=== PATIENT | male | born 1950 | race Caucasian/White ===

== ENCOUNTER → 2018-07-20 | Outpatient (CLI) | payer SELFPAY | LOC: LABPRL 19:28 → LABYALE 19:28 → EDSTATUS 19:32 | PROVIDERS: ATTEND Physician Assistant Medical | DX: E87.5 Hyperkalemia (principal) | CPT/HCPCS: 84132 ==

== ENCOUNTER 2020-10-19 13:10 | Emergency (ER) | payer MEDICARE, BC, OTHER ==
[2020-10-19 13:48] VITALS: TEMP 98.2
[2020-10-19] MEDS ORDERED: SODIUM CHLORIDE 0.9% 500 ML 500 ML IV STA ×2 (14:25→15:08)
[2020-10-19] MEDS ORDERED: OXYMETAZOLINE 0.05% NASL SPRAY 1 SPRAY BOTTLE NASAL STA (14:30)
--- NOTE | 2020-10-19 14:30 | ED ---
General Adult HPI - General Source: patient, RN notes reviewed Mode of arrival: wheelchair Limitations: no limitations <cSotty Lang - Last Filed: 10/19/20 18:09> <Julee Odonnell - Last Filed: 10/20/20 13:33> - General Chief complaint: Recheck/Abnormal Lab/Rx Stated complaint: Nose Bleed Time Seen by Provider: 10/19/20 14:07 - History of Present Illness Initial comments: 70-year-old male with a past medical history of hyperlipidemia, hypertension, [place] presents to the emergency room for a chief complaint of nosebleed. Patient reports he had the packings in both sides of his nose and was admitted at [facility]. patient reports that this was yesterday and that he just had the packing late last night or this morning. reports the packing on the left side came out but he still continues to have some bleeding. Patient reports he left that facility AGAINST MEDICAL ADVICE to come to this facility to be closer to family as he lives up here. Patient states "they were doing nothing for me there anyway."Patient has no other complaints at this time including shortness of breath, chest pain, abdominal pain, nausea or vomiting, headache, or visual changes. (Scotty Lang) - Related Data Home Medications Medication Instructions Recorded Confirmed Cilostazol [Pletal] 100 mg PO BID 10/19/20 10/19/20 Clopidogrel Bisulfate [Plavix] 75 mg PO DAILY 10/19/20 10/19/20 Metoprolol Tartrate [Lopressor] 50 mg PO BID 10/19/20 10/19/20 Mometasone Furoate 1 applic PO DAILY 10/19/20 10/19/20 Multivitamins, Thera [Multivitamin 1 tab PO DAILY 10/19/20 10/19/20 (formulary)] Rosuvastatin Calcium [Crestor] 40 mg PO DAILY 10/19/20 10/19/20 Previous Rx's Medication Instructions Recorded Amoxicillin/Potassium Clav 1 tab PO Q12HR #10 tab 10/19/20 [Augmentin 875-125 Tablet] Allergies Allergy/AdvReac Type Severity Reaction Status Date / Time No Known Allergies Allergy Verified 10/19/20 18:15 Review of Systems ROS Other: All systems not noted in ROS Statement are negative. <Precious,Scotty P - Last Filed: 10/19/20 18:09> ROS Other: All systems not noted in ROS Statement are negative. <OrlandojacekJulee Katharine - Last Filed: 10/20/20 13:33> ROS Statement: Those systems with pertinent positive or pertinent negative responses have been documented in the HPI. Past Medical History Past Medical History: Hyperlipidemia, Hypertension, Myocardial Infarction ([place]) History of Any Multi-Drug Resistant Organisms: None Reported Past Surgical History: Heart Catheterization With Stent Additional Past Surgical History / Comment(s): stent placement within groin Past Psychological History: No Psychological Hx Reported Smoking Status: Current every day smoker Past Alcohol Use History: Rare Past Drug Use History: None Reported <Scotty Lang P - Last Filed: 10/19/20 18:09> General Exam Limitations: no limitations General appearance: alert, in no apparent distress Head exam: Present: atraumatic, normocephalic, normal inspection Eye exam: Present: normal appearance, PERRL, EOMI. Absent: scleral icterus, conjunctival injection, periorbital swelling ENT exam: Present: normal exam, normal oropharynx (Patient does have packing noted in the right Nare), mucous membranes moist Neck exam: Present: normal inspection, full ROM. Absent: tenderness, meningi smus, lymphadenopathy Respiratory exam: Present: normal lung sounds bilaterally. Absent: respiratory distress, wheezes, rales, rhonchi, stridor Cardiovascular Exam: Present: regular rate, normal rhythm, normal heart sounds. Absent: systolic murmur, diastolic murmur, rubs, gallop, clicks GI/Abdominal exam: Present: soft, normal bowel sounds. Absent: distended, tenderness, guarding, rebound, rigid <Scotty Lang P - Last Filed: 10/19/20 18:09> Course <Scotty Lang - Last Filed: 10/19/20 18:09> Vital Signs 10/19/20 10/19/20 10/19/20 13:42 15:58 17:11 Temperature 98.2 F Pulse Rate 118 H 115 H 108 H Respiratory 18 18 16 Rate Blood Pressure 177/112 202/125 191/98 O2 Sat by Pulse 94 L 5 L 98 Oximetry 10/19/20 17:55 Temperature Pulse Rate 109 H Respiratory 18 Rate Blood Pressure 172/95 O2 Sat by Pulse 98 Oximetry - Reevaluation(s) Reevaluation #1: 10/19/20 15:00 Apparently [facility] does not have anything dictated on the patient. Patient was apparently transferred there 3 days ago. (Scotty Lang) Medical Decision Making - Lab Data Result diagrams: 10/19/20 14:33 10/19/20 14:33 <Scotty Lang - Last Filed: 10/19/20 18:09> - Lab Data Result diagrams: 10/19/20 14:33 10/19/20 14:33 <Julee Odonnell - Last Filed: 10/20/20 13:33> - Medical Decision Making I did speak with [facility] who was able to contact me to the doctor that was caring for patient. Patient was held in their observation unit in the emergency room. Patient had a nasal packing placed late last night or early this morning bilaterally. One of the packings in the left nares did fall out. He still has packing in the right nare. He left AMA today from [facility] On exam today patient is not having any active bleeding from the left nare. He is not having any active bleeding from the packing of the right nostril however does have some mucus discharge that is tinged red slightly. I did educate him on this. There is no blood in the oropharynx. From an ENT standpoint patient is stable for discharge. Will be started on Augmentin. He was given ENT follow-up for removal of the packing in 2 days. Patient was hypertensive in the emergency room with slight tachycardia. This is sinus rhythm. EKG was reviewed by myself and Dr. Odonnell. This is likely because patient has not had his a.m. or p.m. metoprolol in 2 days because of his recent admission. He was given labetalol and hydralazine which did help with his blood pressure and heart rate slightly. He will be discharged home to continue taking his by mouth labetalol. If he develops any worsening symptoms such as chest pain or lightheadedness he will immediately return to the emergency room. (Scotty Lang) I was available for consultation in the emergency department. The history and physical exam were done by the midlevel provider. I was consulted for this patients care. I reviewed the case with the midlevel provider and based on their presentation of the patient, I agree with the assessment, medical decision making and plan of care as documented. Chart was dictated using [employer] dictation software. Attempts were made to correct any dictation errors however some typographical errors may persist. Patient was seen during a national state of emergency due to the Covid-19 pandemic. (Julee Odonnell) - Lab Data Lab Results 10/19/20 10/19/20 10/19/20 Range/Units 14:33 14:33 14:33 WBC 12.3 H (3.8-10.6) k/uL RBC 4.34 (4.30-5.90) m/uL Hgb 13.7 (13.0-17.5) gm/dL Hct 41.8 (39.0-53.0) % MCV 96.3 (80.0-100.0) fL MCH 31.5 (25.0-35.0) pg MCHC 32.7 (31.0-37.0) g/dL RDW 13.9 (11.5-15.5) % Plt Count 186 (150-450) k/uL MPV 7.5 Neutrophils % 81 % Lymphocytes % 12 % Monocytes % 4 % Eosinophils % 2 % Basophils % 1 % Neutrophils # 10.0 H (1.3-7.7) k/uL Lymphocytes # 1.5 (1.0-4.8) k/uL Monocytes # 0.5 (0-1.0) k/uL Eosinophils # 0.2 (0-0.7) k/uL Basophils # 0.1 (0-0.2) k/uL PT 9.7 (9.0-12.0) sec INR 0.9 (<1.2) APTT 23.6 (22.0-30.0) sec Sodium 139 (137-145) mmol/L Potassium 4.1 (3.5-5.1) mmol/L Chloride 105 (98-107) mmol/L Carbon Dioxide 30 (22-30) mmol/L Anion Gap 4 mmol/L BUN 59 H (9-20) mg/dL Creatinine 1.32 H (0.66-1.25) mg/dL Est GFR (CKD-EPI)AfAm 62 (>60 ml/min/1.73 sqM) Est GFR (CKD-EPI)NonAf 54 (>60 ml/min/1.73 sqM) Glucose 131 H (74-99) mg/dL Calcium 9.0 (8.4-10.2) mg/dL Total Bilirubin 0.5 (0.2-1.3) mg/dL AST 27 (17-59) U/L ALT 17 (4-49) U/L Alkaline Phosphatase 58 (38-126) U/L Total Protein 6.3 (6.3-8.2) g/dL Albumin 3.9 (3.5-5.0) g/dL Disposition Is patient prescribed a controlled substance at d/c from ED?: No Time of Disposition: 18:05 <Scotty Lang - Last Filed: 10/19/20 18:09> <Julee Odonnell - Last Filed: 10/20/20 13:33> Clinical Impression: Nasal bleeding, Hypertension Disposition: HOME SELF-CARE Condition: Good Instructions (If sedation given, give patient instructions): Nosebleed (ED) Additional Instructions: Take your metoprolol when you get home. Please take antibiotic as directed. Please follow-up with ENT. You should have packing removed on Monday, October 21. If you have any worsening symptoms return to the emergency room. Prescriptions: Amoxicillin/Potassium Clav [Augmentin 875-125 Tablet] 1 tab PO Q12HR #10 tab Referrals: [facility],Clinic [Primary Care Provider] - 1-2 days Feliciano Mora MD [STAFF PHYSICIAN] - 1-2 days
[2020-10-19 14:54] LABS: Basophils # (A) 0.1 k/uL (0-0.2); Basophils % (A) 1 %; Eosinophils # (A) 0.2 k/uL (0-0.7); Eosinophils % (A) 2 %; HCT 41.8 % (39.0-53.0); HGB 13.7 gm/dL (13.0-17.5); Lymphocytes # (A) 1.5 k/uL (1.0-4.8); Lymphocytes % (A) 12 %; MCH 31.5 pg (25.0-35.0); MCHC 32.7 g/dL (31.0-37.0); MCV 96.3 fL (80.0-100.0); Mean Platelet Volume 7.5; Monocytes # (A) 0.5 k/uL (0-1.0); Monocytes % (A) 4 %; Neutrophils % (A) 81 %; Platelet Count 186 k/uL (150-450); RBC 4.34 m/uL (4.30-5.90); RDW 13.9 % (11.5-15.5); WBC 12.3 k/uL (3.8-10.6)
[2020-10-19 15:02] LABS: Albumin 3.9 g/dL (3.5-5.0); Potassium 4.1 mmol/L (3.5-5.1); Total Bilirubin 0.5 mg/dL (0.2-1.3); Total Protein 6.3 g/dL (6.3-8.2)
[2020-10-19 15:04] LABS: INR 0.9 (<1.2); Partial Thromboplastin Time 23.6 sec (22.0-30.0); Prothrombin Time 9.7 sec (9.0-12.0)
[2020-10-19] MEDS ORDERED: LABETALOL 5 MG/ML VIAL MDV IVP STA (16:20)
[2020-10-19] MEDS ORDERED: hydrALAZINE HCL 20 MG/ML 1 ML VIAL IVP STA (17:24)
[2020-10-19 17:56] VITALS: BP 172/95; PULSE 109; RESP 18
== END 2020-10-19 18:27 | disposition home or self-care (01) ==
LOC: EC 13:10
DX: R04.0 Epistaxis (principal); I10 Essential (primary) hypertension; R00.0 Tachycardia, unspecified; I25.2 Old myocardial infarction; F17.200 Nicotine dependence, unspecified, uncomplicated; Z95.5 Presence of coronary angioplasty implant and graft
CPT/HCPCS: 36415; 93005; 80053; 85025; 85610; 85730; 99283; 96374; 96375; 96361 ×2; J0360

== ENCOUNTER → 2022-08-22 | Outpatient (CLI) | payer MEDICARE, BC ==
[2022-08-22 16:10] LABS: ALT 25 U/L (10-49); AST 31 U/L (14-35); Chol/HDL Ratio 3.05 Ratio; LDL Cholesterol,Calculated 74.3 mg/dL (0.0-131.0); VLDL Calculation 19.24 mg/dL (5.00-40.00)
== END | disposition home or self-care (01) ==
LOC: LABWHC1 10:48
PROVIDERS: ATTEND Internal Medicine Interventional Cardiology
DX: E78.2 Mixed hyperlipidemia (principal)
CPT/HCPCS: 36415; 80061; 84450; 84460

== ENCOUNTER → 2023-01-27 | Outpatient (CLI) | payer MEDICARE, BC, OTHER ==
--- NOTE | 2023-01-27 10:30 | CT ---
EXAMINATION TYPE: CT chest w con DATE OF EXAM: 01/27/2023 COMPARISON: NONE at this hospital. HISTORY: Pulmonary nodule CT DLP: 581 mGycm. Automated Exposure Control for Dose Reduction was Utilized. TECHNIQUE: CT scan of the thorax is performed following with IV Contrast, patient injected with 50 m l mL of Isovue 300. FINDINGS: LUNGS: Moderate underlying emphysematous change is present. There is spiculated 2.0 x 2.0 cm right up per lobe nodule axial image 15. There is additional peripheral 7 x 6 mm right lower lobe nodule poste riorly axial image 23. No left-sided pulmonary nodules or masses. Mild bibasilar linear scarring and/ or atelectasis. No pleural effusion or pneumothorax seen bilaterally. No left-sided pulmonary nodules or masses. MEDIASTINUM: There are no greater than 1 cm hilar or mediastinal lymph nodes. No cardiomegaly or pe ricardial effusion is seen. Coronary artery calcification is present which is noted marker for under lying coronary artery disease. Mild to moderate calcified plaque of the thoracic aorta extends into b ranch vessels OTHER: Asymmetric diminished size and diminished or absent cortical medullary uptake in the left kidn ey with 2.9 cm simple appearing thin-walled cyst lower pole level seen on coronal images. There is pa rtial visualization of suspected AAA on coronal images just below the renal arteries. If this is not known finding follow-up advised. There is multilevel spurring and bridging osteophytes in the thoraci c spine. IMPRESSION: 1. Moderate emphysematous change with suspicious 2.0 cm right upper lobe spiculated nodule. No defini tive abnormal thoracic adenopathy. Nonspecific 7 x 6 mm right lower lobe nodule also noted. 2. Probable infrarenal AAA. Imaging follow-up advised to further assess. 3. Asymmetric significant atrophy to left kidney noted. Correlate clinically.
== END | disposition home or self-care (01) ==
LOC: RADCTMAIN 08:30
PROVIDERS: ATTEND Internal Medicine Critical Care Medicine
DX: J43.9 Emphysema, unspecified (principal); N26.1 Atrophy of kidney (terminal); R91.8 Other nonspecific abnormal finding of lung field
CPT/HCPCS: 82565; 84520; 71260; 36415; Q9967

== ENCOUNTER → 2023-02-11 | Outpatient (CLI) | payer MEDICARE, BC, OTHER ==
--- NOTE | 2023-02-13 08:24 | PE ---
EXAMINATION TYPE: PET CT fusion skull to thigh DATE OF EXAM: 02/11/2023 COMPARISON: Chest CT January 27, 2023 HISTORY: Solitary pulmonary nodule, recent abnormal CT TECHNIQUE: Following the intravenous administration of 12.03 mCi of F-18 FDG, whole body images are performed from the skull base to the midthigh. Images are reviewed on the computer in the coronal, a xial, and sagittal planes. Reconstructed rotating images are created on independent workstation and reviewed on the computer. A localization and attenuation correction CT is performed in conjunction with the PET scan. Blood glucose level equals 108. SCAN: Initial Scan FINDINGS: SKULL BASE AND NECK: Mild hypermetabolic uptake anterior tongue base in the midline axial image 37, Max SUV is 5.51. No obvious mass at this level. No additional areas of abnormal hypermetabolic uptake in the thorax. CHEST, MEDIASTINUM, AND HILAR REGION: Moderate underlying emphysematous changes are redemonstrated. P ersistent spiculated 1.9 x 1.9 cm right upper lobe nodule axial image 85 with abnormal hypermetabolic uptake, max SUV is 13.21s. No additional areas of abnormal hypermetabolic uptake in the thorax. ABDOMEN AND PELVIS: No hypermetabolic adrenal masses. Normal excretion from single right kidney. No a reas of abnormal hypermetabolic uptake. OSSEOUS STRUCTURES: No areas of abnormal hypermetabolic uptake. OTHER CT: Carotid artery stent on left side is present. Severe calcification right carotid bulb is se en. Coronary artery calcifications are redemonstrated. There is AAA measuring up to 5.1 cm transversely axial image 182. There is atherosclerotic change thr oughout the aorta extending into branch vessels. Right-sided external iliac artery stent is present. Enlarged prostate consistent with BPH. Few scattered colonic diverticula greatest in sigmoid colon. IMPRESSION: 1. Abnormal hypermetabolic uptake in the 1.9 cm right upper lobe nodule worrisome for neoplasm. No malloy spicious adenopathy or metastatic disease seen. 2. Mild abnormal hypermetabolic uptake anterior tongue, advise direct physical exam to rule out mucos al mass or neoplasm at this level though favor contamination or other artifact. 3. Extensive atherosclerotic change with AAA up to 5.1 cm. Follow-up advised if this is not known jeovany ugarte
== END | disposition home or self-care (01) ==
LOC: RADPETMAIN 08:25
PROVIDERS: ATTEND Internal Medicine Critical Care Medicine
DX: I71.40 Abdominal aortic aneurysm, without rupture, unspecified (principal); R91.1 Solitary pulmonary nodule
CPT/HCPCS: 78815; A9552

== ENCOUNTER → 2023-10-03 | Outpatient (CLI) | payer OTHER ==
[2023-10-03 10:25] LABS: African American GFR (CKD) 53 (>60 ml/min/1.73 sqM); Blood Urea Nitrogen 32 mg/dL (9-20); Non-African American GFR(CKD) 45 (>60 ml/min/1.73 sqM)
--- NOTE | 2023-10-03 11:38 | CT ---
EXAMINATION TYPE: CT chest w con DATE OF EXAM: 10/03/2023 COMPARISON: 05/23/2023 HISTORY: C34.11 LUNG CA, F17.210 nicotine dependence Automated exposure control for dose reduction was used. CONTRAST: CT scan of the chest is performed with IV Contrast, patient injected with 100 mL of Isovue 300. FINDINGS: LUNGS: Spiculated nodule right upper lobe is again noted currently measuring 1 cm versus 1.3 cm previ ously. No additional nodules or masses seen. Mild emphysematous changes. No evidence of volume loss o r infiltrate. No pleural effusion. MEDIASTINUM: There are no greater than 1 cm hilar or mediastinal lymph nodes. No pericardial effusi on is seen. Thoracic aorta is of normal caliber. The heart is not enlarged. UPPER ABDOMEN: Partially imaged abdominal aortic aneurysm. OTHER: No additional significant abnormality is seen. IMPRESSION: Spiculated nodule right upper lobe is again noted currently measuring 1 cm versus 1.3 cm previously.
== END | disposition home or self-care (01) ==
LOC: RADCTMAIN 09:48
PROVIDERS: ATTEND Radiology Radiation Oncology
DX: C34.11 Malignant neoplasm of upper lobe, right bronchus or lung (principal); F17.210 Nicotine dependence, cigarettes, uncomplicated; R91.1 Solitary pulmonary nodule
CPT/HCPCS: 82565; 84520; 71260; 36415; Q9967

== ENCOUNTER 2023-11-30 06:21 | Inpatient (IN) | payer OTHER, MEDICARE, BC ==
[2023-11-30] MEDS ORDERED: IPRATROPIUM-ALBUTEROL 3 ML NEB INHALATION STA (06:33)
[2023-11-30 06:37] VITALS: TEMP 97.7
[2023-11-30 06:52] LABS: Basophils % (A) 1 %; Eosinophils % (A) 0 %; Lymphocytes # (A) 1.1 k/uL (1.0-4.8); Lymphocytes % (A) 20 %; MCH 32.4 pg (25.0-35.0); MCHC 32.8 g/dL (31.0-37.0); MCV 98.6 fL (80.0-100.0); Mean Platelet Volume 8.1; Monocytes # (A) 0.5 k/uL (0-1.0); Monocytes % (A) 9 %; Neutrophils # (A) 3.8 k/uL (1.3-7.7); Neutrophils % (A) 68 %; Platelet Count 126 k/uL (150-450); RBC 5.88 m/uL (4.30-5.90); RDW 13.2 % (11.5-15.5); WBC 5.6 k/uL (3.8-10.6)
[2023-11-30 06:54] LABS: HCT 57.9 % (39.0-53.0)
[2023-11-30 06:58] LABS: INR 1.1 (<1.2); Partial Thromboplastin Time 27.3 sec (22.0-30.0); Prothrombin Time 11.8 sec (10.0-12.5)
--- NOTE | 2023-11-30 07:03 | XR ---
EXAMINATION TYPE: XR chest 2V DATE OF EXAM: 11/30/2023 COMPARISON: Chest CT October 03, 2023 HISTORY: Difficulty in breathing. TECHNIQUE: Frontal and lateral views of the chest are obtained. FINDINGS: There is chronic parenchymal changes bilaterally redemonstrated without suspicious focal a ir space opacity, pleural effusion, or pneumothorax seen. The cardiac silhouette size is stable and within normal limits. Bridging osteophytes in the thoracic spine are redemonstrated. IMPRESSION: No acute pulmonary process.
--- NOTE | 2023-11-30 07:11 | ED ---
SOB HPI - General Source: patient, EMS Mode of arrival: EMS Limitations: no limitations <Sheri Arita - Last Filed: 11/30/23 07:11> <Edd Haines - Last Filed: 11/30/23 11:00> - General Chief Complaint: Shortness of Breath Stated Complaint: SOB Time Seen by Provider: 11/30/23 06:23 - History of Present Illness Initial Comments: Low is a 73-year-old man with a history of hypertension, hyperlipidemia, PA. Patient still smokes and is brought to the ER today for evaluation of difficulty breathing. Patient reports that he feels like he has been able to catch his breath since Monday he has had a nonproductive cough and some audible wheezing. This morning it became unbearable he could not catch his breath EMS arrived at the patient's home to find him with an oxygen saturation in the low 80s. He was given a DuoNeb and placed on 6 L nasal cannula and brought to the ER for further evaluation. Patient denies any sick contacts he denies any fevers. Patient denies any chest pain -patient states he has not inhaler he uses twice daily but no nebulizer at home. Has never required hospitalization due to any respiratory issues. (Sheri Arita) - Related Data Home Medications Medication Instructions Recorded Confirmed Metoprolol Tartrate [Lopressor] 50 mg PO BID 10/19/20 11/30/23 Aspirin EC [Ecotrin Low Dose] 81 mg PO DAILY 11/30/23 11/30/23 Lisinopril-Hctz 10-12.5 mg 1 tab PO DAILY 11/30/23 11/30/23 [Zestoretic 10-12.5] Rosuvastatin [Crestor] 20 mg PO DAILY 11/30/23 11/30/23 Tiotropium Br/Olodaterol HCl 2 puff INHALATION RT-DAILY 11/30/23 11/30/23 [Stiolto Respimat Inhal [place]] Previous Rx's Medication Instructions Recorded Oseltamivir [Tamiflu] 75 mg PO Q12HR 5 Days #10 cap 11/30/23 Allergies Allergy/AdvReac Type Severity Reaction Status Date / Time No Known Allergies Allergy Verified 11/30/23 09:49 Review of Systems ROS Other: All systems not noted in ROS Statement are negative. <Sheri Arita - Last Filed: 11/30/23 07:11> ROS Other: All systems not noted in ROS Statement are negative. <Edd Haines - Last Filed: 11/30/23 11:00> ROS Statement: Those systems with pertinent positive or pertinent negative responses have been documented in the HPI. Past Medical History Past Medical History: Hyperlipidemia, Hypertension, Myocardial Infarction (PA) History of Any Multi-Drug Resistant Organisms: None Reported Past Surgical History: Heart Catheterization With Stent Additional Past Surgical History / Comment(s): stent placement within groin Past Psychological History: No Psychological Hx Reported Smoking Status: Current every day smoker Past Alcohol Use History: Rare Past Drug Use History: None Reported <Sheri Arita P - Last Filed: 11/30/23 07:11> General Exam Limitations: no limitations General appearance: alert, in distress Head exam: Present: atraumatic Eye exam: Present: PERRL ENT exam: Present: mucous membranes dry Neck exam: Present: full ROM Respiratory exam: Present: respiratory distress, wheezes Cardiovascular Exam: Present: regular rate GI/Abdominal exam: Present: soft. Absent: distended Rectal exam: Present: deferred Extremities exam: Present: pedal edema. Absent: normal capillary refill Neurological exam: Present: alert, oriented X3 Psychiatric exam: Present: agitated Skin exam: Present: warm, dry, other (red, jackelyn) <Sheri Arita P - Last Filed: 11/30/23 07:11> Course Vital Signs 11/30/23 11/30/23 11/30/23 06:23 08:02 08:19 Temperature 97.7 F Pulse Rate 89 75 78 Respiratory 18 Rate Blood Pressure 118/77 O2 Sat by Pulse 92 L Oximetry 11/30/23 11/30/23 11/30/23 08:21 10:13 10:46 Temperature Pulse Rate 81 86 Respiratory 20 Rate Blood Pressure 111/63 100/61 75/57 O2 Sat by Pulse 93 L 89 L 84 L Oximetry Medical Decision Making - Lab Data Result diagrams: 11/30/23 06:41 <Sheri Arita - Last Filed: 11/30/23 07:11> - Lab Data Result diagrams: 11/30/23 06:41 11/30/23 06:41 <Edd Haines - Last Filed: 11/30/23 11:00> - Medical Decision Making Was pt. sent in by a medical professional or institution (MYNOR Martinez, DIRECTOR BUSINESS, urgent care, hospital, or retirement...) When possible be specific @ -[No] Did you speak to anyone other than the patient for history (EMS, parent, family, police, friend...)? What history was obtained from this source @ -EMS Did you review nursing and triage notes (agree or disagree)? Why? @ -[I reviewed and agree with nursing and triage notes] Were old charts reviewed (outside hosp., previous admission, EMS record, old EKG, old radiological studies, urgent care reports/EKG's, retirement records)? Report findings @ -[No old charts were reviewed] Differential Diagnosis (chest pain, altered mental status, abdominal pain women, abdominal pain men, vaginal bleeding, weakness, fever, dyspnea, syncope, headache, dizziness, GI bleed, back pain, seizure, CVA, palpatations, mental health)? @ -Differential Dyspnea: Coronary syndrome, arrhythmia, tamponade, asthma, COPD, pulmonary embolism, pneumonia, pneumothorax, pulmonary effusion, anaphylaxis, diabetic ketoacidosis, flailed chest, pulmonary contusion, diaphragmatic rupture, anemia, neuromuscular, this is not meant to be an all-inclusive list. EKG interpreted by me (3pts min.). @ -[As above] X-rays interpreted by me (1pt min.). @ -No focal consolidations no pneumothorax no widened mediastinum no obvious acute pathology CT interpreted by me (1pt min.). @ -[None done] U/S interpreted by me (1pt. min.). @ -[None done] What testing was considered but not performed or refused? (CT, X-rays, U/S, labs)? Why? @ -[None] What meds were considered but not given or refused? Why? @ -[None] Did you discuss the management of the patient with other professionals (professionals i.e. MYNOR Martinez, DIRECTOR BUSINESS, lab, RT, psych nurse, health social work professor, marketing consultant, teacher, sheriffs officer, director case management)? Give summary @ -[No] Was smoking cessation discussed for >3mins.? @ -[No] Was critical care preformed (if so, how long)? @ -[No] Were there social determinants of health that impacted care today? How? (Homelessness, low income, unemployed, alcoholism, drug addiction, transportation, low edu. Level, literacy, decrease access to med. care, mcc, rehab)? @ -[No] Was there de-escalation of care discussed even if they declined (Discuss DNR or withdrawal of care, Hospice)? DNR status @ -[No] What co-morbidities impacted this encounter? (DM, HTN, Smoking, COPD, CAD, Cancer, CVA, ARF, Chemo, Hep., AIDS, mental health diagnosis, sleep apnea, morbid obesity)? @ -[None] Was patient admitted / discharged? Hospital course, mention meds given and route, prescriptions, significant lab abnormalities, going to OR and other pertinent info. @ -[hospital course] Undiagnosed new problem with uncertain prognosis? @ -[No] Drug Therapy requiring intensive monitoring for toxicity (Heparin, Nitro, Insulin, Cardizem)? @ -[No] Were any procedures done? @ -[No] Diagnosis/symptom? @ -[default] Acute, or Chronic, or Acute on Chronic? @ -[default] Uncomplicated (without systemic symptoms) or Complicated (systemic symptoms)? @ -[default] Side effects of treatment? @ -[No] Exacerbation, Progression, or Severe Exacerbation? @ -[No] Poses a threat to life or bodily function? How? (Chest pain, USA, PA, pneumonia, PE, COPD, DKA, ARF, appy, cholecystitis, CVA, Diverticulitis, Homicidal, Suicidal, threat to staff... and all critical care pts) @ -[No] (Sheri Arita) Patient care signed out to me by previous shift physician, Dr. Arita. Briefly, patient 73-year-old male presents emergency department with dyspnea. Patient diagnosed with COPD exacerbation. Plan at signout was to follow-up with pending lab evaluation and imaging studies. Chest x-ray interpreted by me shows no acute processes. Laboratory evaluation shows erythrocytosis of 19.0, coags unremarkable. Metabolic panel shows lactic acidosis of 2.7. Slightly elevated renal markers. Patient influenza A positive. Patient pending blood cultures. My EKG interpretation: Ventricular rate 93, A-fib versus sinus arrhythmia. There are clearly discernible P waves in anterior precordial leads however artifact limits diagnosis of new onset A-fib. More likely sinus arrhythmia. Overall this EKG is nonspecific Patient evaluated at bedside at 9:40 AM. Patient well-appearing. Disposition options were discussed he preferred to be discharged. He is agreeable to a repeat lactic. Patient states that his breathing is significantly proved. Repeat EKG was performed at 1002 showing sinus rhythm not A-fib.. Ventricular rate 81, sinus rhythm,. 165, QRS 81, QTc 424. 10:30 AM: Patient reevaluated at bedside at 10:30 AM. Patient hypoxic on 6 L nasal cannula in the high 80s. Patient states he does not wear oxygen at home. It was recommended the patient to be admitted to the hospital h for hypoxic respiratory failure. He states he absolutely does not want to stay under any condition. Risk of m leaving AGAINST MEDICAL ADVICE was discussed with the patient. He states that he understands. He is of sound mind and judgment at the bedside. Still that he would likely have worsening respiratory condition which ultimately could lead to respiratory arrest and . States that he has to go home to pay his bills. 10:56 AM: Patient was spoken tomorrow by nurse and director case management and was agreeable for hospital admission.Case discussed with hospitalist for admission (Edd Haines) - Lab Data Lab Results 11/30/23 11/30/23 11/30/23 Range/Units 06:41 06:41 06:41 WBC 5.6 (3.8-10.6) k/uL RBC 5.88 (4.30-5.90) m/uL Hgb 19.0 H (13.0-17.5) gm/dL Hct 57.9 H* (39.0-53.0) % MCV 98.6 (80.0-100.0) fL MCH 32.4 (25.0-35.0) pg MCHC 32.8 (31.0-37.0) g/dL RDW 13.2 (11.5-15.5) % Plt Count 126 L (150-450) k/uL MPV 8.1 Neutrophils % 68 % Lymphocytes % 20 % Monocytes % 9 % Eosinophils % 0 % Basophils % 1 % Neutrophils # 3.8 (1.3-7.7) k/uL Lymphocytes # 1.1 (1.0-4.8) k/uL Monocytes # 0.5 (0-1.0) k/uL Eosinophils # 0.0 (0-0.7) k/uL Basophils # 0.0 (0-0.2) k/uL PT 11.8 (10.0-12.5) sec INR 1.1 (<1.2) APTT 27.3 (22.0-30.0) sec Sodium 135 L (137-145) mmol/L Potassium 3.8 (3.5-5.1) mmol/L Chloride 96 L (98-107) mmol/L Carbon Dioxide 28 (22-30) mmol/L Anion Gap 11 mmol/L BUN 37 H (9-20) mg/dL Creatinine 1.67 H (0.66-1.25) mg/dL Est GFR (CKD-EPI)AfAm 46 (>60 ml/min/1.73 sqM) Est GFR (CKD-EPI)NonAf 40 (>60 ml/min/1.73 sqM) Glucose 98 (74-99) mg/dL Lactic Ac Sepsis Rflx Plasma Lactic Acid Ez (0.7-2.0) mmol/L Calcium 8.4 (8.4-10.2) mg/dL Magnesium 1.7 (1.6-2.3) mg/dL Total Bilirubin 0.8 (0.2-1.3) mg/dL AST 37 (17-59) U/L ALT 22 (4-49) U/L Alkaline Phosphatase 71 (38-126) U/L Troponin I (0.000-0.034) ng/mL NT-Pro-B Natriuret Pep 1840 pg/mL Total Protein 6.5 (6.3-8.2) g/dL Albumin 3.7 (3.5-5.0) g/dL Influenza Type A (PCR) (Not Detectd) Influenza Type B (PCR) (Not Detectd) RSV (PCR) (Not Detectd) SARS-CoV-2 (PCR) (Not Detectd) 11/30/23 11/30/23 11/30/23 Range/Units 06:41 06:41 06:41 WBC (3.8-10.6) k/uL RBC (4.30-5.90) m/uL Hgb (13.0-17.5) gm/dL Hct (39.0-53.0) % MCV (80.0-100.0) fL MCH (25.0-35.0) pg MCHC (31.0-37.0) g/dL RDW (11.5-15.5) % Plt Count (150-450) k/uL MPV Neutrophils % % Lymphocytes % % Monocytes % % Eosinophils % % Basophils % % Neutrophils # (1.3-7.7) k/uL Lymphocytes # (1.0-4.8) k/uL Monocytes # (0-1.0) k/uL Eosinophils # (0-0.7) k/uL Basophils # (0-0.2) k/uL PT (10.0-12.5) sec INR (<1.2) APTT (22.0-30.0) sec Sodium (137-145) mmol/L Potassium (3.5-5.1) mmol/L Chloride (98-107) mmol/L Carbon Dioxide (22-30) mmol/L Anion Gap mmol/L BUN (9-20) mg/dL Creatinine (0.66-1.25) mg/dL Est GFR (CKD-EPI)AfAm (>60 ml/min/1.73 sqM) Est GFR (CKD-EPI)NonAf (>60 ml/min/1.73 sqM) Glucose (74-99) mg/dL Lactic Ac Sepsis Rflx Plasma Lactic Acid Ez 2.7 H* (0.7-2.0) mmol/L Calcium (8.4-10.2) mg/dL Magnesium (1.6-2.3) mg/dL Total Bilirubin (0.2-1.3) mg/dL AST (17-59) U/L ALT (4-49) U/L Alkaline Phosphatase (38-126) U/L Troponin I 0.022 (0.000-0.034) ng/mL NT-Pro-B Natriuret Pep pg/mL Total Protein (6.3-8.2) g/dL Albumin (3.5-5.0) g/dL Influenza Type A (PCR) Detected A (Not Detectd) Influenza Type B (PCR) Not Detected (Not Detectd) RSV (PCR) Not Detected (Not Detectd) SARS-CoV-2 (PCR) Not Detected (Not Detectd) 11/30/23 11/30/23 Range/Units 08:17 09:53 WBC (3.8-10.6) k/uL RBC (4.30-5.90) m/uL Hgb (13.0-17.5) gm/dL Hct (39.0-53.0) % MCV (80.0-100.0) fL MCH (25.0-35.0) pg MCHC (31.0-37.0) g/dL RDW (11.5-15.5) % Plt Count (150-450) k/uL MPV Neutrophils % % Lymphocytes % % Monocytes % % Eosinophils % % Basophils % % Neutrophils # (1.3-7.7) k/uL Lymphocytes # (1.0-4.8) k/uL Monocytes # (0-1.0) k/uL Eosinophils # (0-0.7) k/uL Basophils # (0-0.2) k/uL PT (10.0-12.5) sec INR (<1.2) APTT (22.0-30.0) sec Sodium (137-145) mmol/L Potassium (3.5-5.1) mmol/L Chloride (98-107) mmol/L Carbon Dioxide (22-30) mmol/L Anion Gap mmol/L BUN (9-20) mg/dL Creatinine (0.66-1.25) mg/dL Est GFR (CKD-EPI)AfAm (>60 ml/min/1.73 sqM) Est GFR (CKD-EPI)NonAf (>60 ml/min/1.73 sqM) Glucose (74-99) mg/dL Lactic Ac Sepsis Rflx Y Plasma Lactic Acid Ez 2.2 H* (0.7-2.0) mmol/L Calcium (8.4-10.2) mg/dL Magnesium (1.6-2.3) mg/dL Total Bilirubin (0.2-1.3) mg/dL AST (17-59) U/L ALT (4-49) U/L Alkaline Phosphatase (38-126) U/L Troponin I (0.000-0.034) ng/mL NT-Pro-B Natriuret Pep pg/mL Total Protein (6.3-8.2) g/dL Albumin (3.5-5.0) g/dL Influenza Type A (PCR) (Not Detectd) Influenza Type B (PCR) (Not Detectd) RSV (PCR) (Not Detectd) SARS-CoV-2 (PCR) (Not Detectd) Disposition <Sheri Arita P - Last Filed: 11/30/23 07:11> Is patient prescribed a controlled substance at d/c from ED?: No Decision Time: 10:56 <Edd Haines - Last Filed: 11/30/23 11:00> Clinical Impression: Hypoxic respiratory failure Disposition: ADMITTED IP TO THIS HOSP Condition: Serious Instructions (If sedation given, give patient instructions): Hypoxia (ED) Prescriptions: Oseltamivir [Tamiflu] 75 mg PO Q12HR 5 Days #10 cap Referrals: [facility],Clinic [Primary Care Provider] - 1-2 days
[2023-11-30] MEDS ORDERED: methylPREDNISolone SOD SUCCIN 125 MG in SODIUM CHLORIDE 0.9% 100 ML IVPB STA (07:15)
[2023-11-30] MEDS ORDERED: methylPREDNISolone SOD SUCCI 125 MG/2 ML VIAL IV STA (07:21)
[2023-11-30 07:26] LABS: ALT 22 U/L (4-49); AST 37 U/L (17-59); African American GFR (CKD) 46 (>60 ml/min/1.73 sqM); Albumin 3.7 g/dL (3.5-5.0); Alkaline Phosphatase 71 U/L (38-126); Anion Gap 11 mmol/L; Blood Urea Nitrogen 37 mg/dL (9-20); Calcium 8.4 mg/dL (8.4-10.2); Carbon Dioxide 28 mmol/L (22-30); Chloride 96 mmol/L (98-107); Glucose 98 mg/dL (74-99); Magnesium 1.7 mg/dL (1.6-2.3); Non-African American GFR(CKD) 40 (>60 ml/min/1.73 sqM); Potassium 3.8 mmol/L (3.5-5.1); Sodium 135 mmol/L (137-145); Total Bilirubin 0.8 mg/dL (0.2-1.3); Total Protein 6.5 g/dL (6.3-8.2)
[2023-11-30 07:34] LABS: NT-Pro-B-Type Natriuretic Pept 1840 pg/mL
[2023-11-30] MEDS ORDERED: NALOXONE 0.4 MG/ML 1 ML VIAL IV PRN (10:57)
[2023-11-30] MEDS ORDERED: SODIUM CHLORIDE 0.9% 1,000 ML IV SCH (11:00)
[2023-11-30] MEDS: NICOTINE 21MG/24HR PATCH TRANSDERM STA ×2 (11:09→14:12)
[2023-11-30] MEDS ORDERED: OSELTAMIVIR 60 MG/10 ML ORAL SYRINGE PO SCH (12:00)
[2023-11-30 15:16] VITALS: BP 91/51; PULSE 86; RESP 24
--- NOTE | 2023-11-30 15:50 | P.PN ---
Progress Note - Text Progress Note Date: 11/30/23 Patient left AMA without being seen by admitting attending. No one notified attending about patient leaving AMA.
[2023-12-01] MEDS ORDERED: ENOXAPARIN 40 MG/0.4 ML SYRINGE SQ SCH (09:00)
[2023-12-01] MEDS ORDERED: ATORVASTATIN 40 MG TAB PO SCH (09:00)
[2023-12-01] MEDS ORDERED: ASPIRIN 81 MG PO SCH (09:00)
== END 2023-11-30 13:40 | disposition left against medical advice (07) | DRG 193 ==
LOC: EC 06:21 → 4SSUR 10:58
PROVIDERS: ADMIT Family Medicine; ATTEND Family Medicine
DX: J10.1 Influenza due to other identified influenza virus with other respiratory manifestations (principal); J96.91 Respiratory failure, unspecified with hypoxia; J44.1 Chronic obstructive pulmonary disease with (acute) exacerbation; I48.91 Unspecified atrial fibrillation; E78.5 Hyperlipidemia, unspecified; I10 Essential (primary) hypertension; I25.2 Old myocardial infarction; F17.200 Nicotine dependence, unspecified, uncomplicated; Z53.29 Procedure and treatment not carried out because of patient's decision for other reasons; Z79.82 Long term (current) use of aspirin; Z79.899 Other long term (current) drug therapy
CPT/HCPCS: 36415; 71046; 80053; 83605; 83735; 83880; 84484; 85025; 85610; 85730; 87040; 87636; 93005; 94640; 96374; 99285

== ENCOUNTER 2023-12-02 04:34 | Inpatient (IN) | payer OTHER, MEDICARE, BC ==
[2023-12-02 05:27] LABS: Basophils # (A) 0.1 k/uL (0-0.2); Basophils % (A) 1 %; Eosinophils % (A) 1 %; Lymphocytes % (A) 18 %; MCH 32.5 pg (25.0-35.0); MCHC 32.9 g/dL (31.0-37.0); MCV 98.8 fL (80.0-100.0); Mean Platelet Volume 9.4; Monocytes # (A) 0.6 k/uL (0-1.0); Monocytes % (A) 11 %; Neutrophils # (A) 3.6 k/uL (1.3-7.7); Neutrophils % (A) 66 %; Platelet Count 122 k/uL (150-450); RBC 5.93 m/uL (4.30-5.90); RDW 13.4 % (11.5-15.5); WBC 5.5 k/uL (3.8-10.6)
[2023-12-02] MEDS: predniSONE 20 MG TAB PO STA (05:29)
--- NOTE | 2023-12-02 05:31 | ED ---
SOB HPI - General Chief Complaint: Shortness of Breath Stated Complaint: SOB Time Seen by Provider: 12/02/23 04:46 Source: patient, EMS Mode of arrival: EMS - History of Present Illness Initial Comments: This patient is a 73-year-old man who is here complaining of progressive jonathan rtness of breath going back probably about a week. Patient has history of COPD and also of lung cancer. Patient states that he was given radiation treatments couple of years ago but was not a candidate for other treatment. the patient had come to the hospital 2 days ago. He states that he had to leave and signed out AGAINST MEDICAL ADVICE. Patient states that when his breathing worsened his br other had him brought him back to the hospital. Patient has not noted fever or chills. He does have chronic nonproductive cough. Patient states he has tried using the inhaler he has at home but is not giving much relief. Patient denies chest pain. MD Complaint: shortness of breath Onset/Timin -: week(s) Severity scale (1-10): 0 Consistency: constant Improves With: nothing Worsens With: nothing Known History Of: COPD, other (Lung cancer) Associated Symptoms: cough Treatments Prior to Arrival: bronchodilator - Related Data Home Oxygen Therapy: No Home Medications Medication Instructions Recorded Confirmed Metoprolol Tartrate [Lopressor] 50 mg PO BID 10/19/20 12/07/23 Aspirin EC [Ecotrin Low Dose] 81 mg PO DAILY 11/30/23 12/07/23 Lisinopril-Hctz 10-12.5 mg 1 tab PO DAILY 11/30/23 12/07/23 [Zestoretic 10-12.5] Rosuvastatin [Crestor] 20 mg PO DAILY 11/30/23 12/07/23 Tiotropium Br/Olodaterol HCl 2 puff INHALATION RT-DAILY 11/30/23 12/07/23 [Stiolto Respimat Inhal [place]] Previous Rx's Medication Instructions Recorded Apixaban [Eliquis] 5 mg PO BID 30 Days #60 tab 12/06/23 Ipratropium-Albuterol Nebulize 3 ml INHALATION RT-QID 30 Days 12/06/23 [Duoneb 0.5 mg-3 mg/3 ml Soln] #120 each predniSONE See Taper PO DIRECTED 12 Days 12/06/23 #30 tab Allergies Allergy/AdvReac Type Severity Reaction Status Date / Time No Known Allergies Allergy Verified 12/02/23 11:25 Review of Systems ROS Statement: Those systems with pertinent positive or pertinent negative responses have been documented in the HPI. ROS Other: All systems not noted in ROS Statement are negative. Constitutional: Denies: fever, chills, weakness ENT: Denies: congestion Respiratory: Reports: cough, dyspnea Cardiovascular: Denies: chest pain, palpitations, edema, syncope Gastrointestinal: Denies: abdominal pain, vomiting, diarrhea Genitourinary: Denies: dysuria, hematuria Musculoskeletal: Denies: back pain Skin: Denies: rash Neurological: Denies: headache, weakness, numbness Past Medical History Past Medical History: Cancer, COPD, Hyperlipidemia, Hypertension, Myocardial Infarction ([place]) History of Any Multi-Drug Resistant Organisms: None Reported Past Surgical History: Heart Catheterization With Stent Additional Past Surgical History / Comment(s): stent placement within groin Past Psychological History: No Psychological Hx Reported Smoking Status: Current every day smoker Past Alcohol Use History: Rare Past Drug Use History: None Reported General Exam General appearance: alert, in no apparent distress Head exam: Present: atraumatic, normocephalic Eye exam: Present: normal appearance. Absent: scleral icterus, conjunctival injection ENT exam: Present: normal oropharynx Neck exam: Present: normal inspection Respiratory exam: Present: respiratory distress (Mild tachypnea), wheezes. Absent: rales, rhonchi, stridor, accessory muscle use Cardiovascular Exam: Present: tachycardia, irregular rhythm, normal heart sounds. Absent: systolic murmur, diastolic murmur, rubs, gallop GI/Abdominal exam: Present: soft. Absent: distended, tenderness, guarding, rebound, rigid Extremities exam: Present: normal inspection, normal capillary refill. Absent: pedal edema, calf tenderness Back exam: Present: normal inspection. Absent: CVA tenderness (R), CVA tenderness (L) Neurological exam: Present: alert Skin exam: Present: warm, dry, intact, normal color. Absent: rash Course Vital Signs 12/02/23 12/02/23 12/02/23 04:43 04:55 05:39 Temperature 97.7 F Pulse Rate 83 80 Respiratory 24 Rate Blood Pressure 73/62 97/73 Blood Pressure [Right Arm Sitting] O2 Sat by Pulse 91 L Oximetry 12/02/23 12/02/23 12/02/23 06:14 06:26 10:00 Temperature Pulse Rate 133 H 141 H 75 Respiratory 24 20 Rate Blood Pressure 104/90 102/76 Blood Pressure [Right Arm Sitting] O2 Sat by Pulse 92 L 94 L Oximetry 12/02/23 12/02/23 12/02/23 12:00 12:30 12:38 Temperature Pulse Rate 68 68 60 Respiratory 16 16 Rate Blood Pressure 102/50 102/60 Blood Pressure [Right Arm Sitting] O2 Sat by Pulse 94 L 93 L 93 L Oximetry 12/02/23 12/02/23 12/02/23 12:39 13:00 15:00 Temperature Pulse Rate 67 68 75 Respiratory 16 20 Rate Blood Pressure 102/60 106/60 Blood Pressure [Right Arm Sitting] O2 Sat by Pulse 93 L 92 L Oximetry 12/02/23 12/02/23 12/02/23 16:00 17:20 19:34 Temperature 97.6 F Pulse Rate 69 73 Respiratory 16 16 19 Rate Blood Pressure 110/68 99/52 Blood Pressure 96/71 [Right Arm Sitting] O2 Sat by Pulse 92 L 94 L 91 L Oximetry 12/02/23 12/02/23 12/02/23 19:47 19:57 19:58 Temperature Pulse Rate 65 67 67 Respiratory Rate Blood Pressure Blood Pressure [Right Arm Sitting] O2 Sat by Pulse Oximetry Medical Decision Making - Medical Decision Making Patient 73-year-old man here with dyspnea that appears to be multifactorial. Main component appears to be COPD exacerbation. Patient started on inhaled medication and steroid. Patient also found to be in atrial fibrillation with rapid ventricular rate. He does not currently take anticoagulation and it appears this is a new diagnosis. Finally patient does have elevated D-dimer and will be cleared for PE. The patient had chest x-ray that I interpreted as negative for acute infiltrate, pneumothorax, congestive heart failure The patient had CT of the chest which I interpreted as not showing acute pulmonary embolism Was pt. sent in by a medical professional or institution ([facility], [facility], urgent care, hospital, or residential...) When possible be specific @ -[No] Did you speak to anyone other than the patient for history (EMS, parent, family, police, friend...)? What history was obtained from this source @ -[No] Did you review nursing and triage notes (agree or disagree)? Why? @ -[I reviewed and agree with nursing and triage notes] Were old charts reviewed (outside hosp., previous admission, EMS record, old EKG, old radiological studies, urgent care reports/EKG's, residential records)? Report findings @ -[ Differential Diagnosis (chest pain, altered mental status, abdominal pain women, abdominal pain men, vaginal bleeding, weakness, fever, dyspnea, syncope, headache, dizziness, GI bleed, back pain, seizure, CVA, palpatations, mental health, musculoskeletal)? @ -[Differential Dyspnea: Coronary syndrome, arrhythmia, tamponade, asthma, COPD, pulmonary embolism, pneumonia, pneumothorax, pulmonary effusion, anaphylaxis, diabetic ketoacidosis, flailed chest, pulmonary contusion, diaphragmatic rupture, anemia, neuromuscular, this is not meant to be an all-inclusive list. EKG interpreted by me (3pts min.). @ -[I interpreted as above] X-rays interpreted by me (1pt min.). @ -I interpreted as above CT interpreted by me (1pt min.). @ -[I interpreted as above U/S interpreted by me (1pt. min.). @ -[None done] What testing was considered but not performed or refused? (CT, X-rays, U/S, labs)? Why? @ -[None] What meds were considered but not given or refused? Why? @ -[None] Did you discuss the management of the patient with other professionals (professionals i.e. , PA, [facility], lab, RT, psych nurse, social human services assistants, shaper machine hand, teacher, energy control officer, casework specialist)? Give summary @ -[Case discussed with admitting physician and treatment recommendations incorporated Was smoking cessation discussed for >3mins.? @ -[No] Was critical care preformed (if so, how long)? @ -[No] Were there social determinants of health that impacted care today? How? (Homelessness, low income, unemployed, alcoholism, drug addiction, transportation, low edu. Level, literacy, decrease access to med. care, custodial, rehab)? @ -[No] Was there de-escalation of care discussed even if they declined (Discuss DNR or withdrawal of care, Hospice)? DNR status @ -[No] What co-morbidities impacted this encounter? (DM, HTN, Smoking, COPD, CAD, Cancer, CVA, ARF, Chemo, Hep., AIDS, mental health diagnosis, sleep apnea, morbid obesity)? @ -[COPD Was patient admitted / discharged? Hospital course, mention meds given and route, prescriptions, significant lab abnormalities, going to OR and other pertinent info. @ -[See above Undiagnosed new problem with uncertain prognosis? @ -[No] Drug Therapy requiring intensive monitoring for toxicity (Heparin, Nitro, Insulin, Cardizem)? @ -[No] Were any procedures done? @ -[No] Diagnosis/symptom? @ -Acute dyspnea Acute exacerbation of COPD Acute, or Chronic, or Acute on Chronic? @ -[Acute Uncomplicated (without systemic symptoms) or Complicated (systemic symptoms)? @ -[Uncomplicated Side effects of treatment? @ -[No] Exacerbation, Progression, or Severe Exacerbation? @ -[Exacerbation Poses a threat to life or bodily function? How? (Chest pain, USA, NH, pneumonia, PE, COPD, DKA, ARF, appy, cholecystitis, CVA, Diverticulitis, Homicidal, Suicidal, threat to staff... and all critical care pts) @ -[No] - Lab Data Result diagrams: 12/06/23 09:19 12/06/23 09:19 Lab Results 12/02/23 12/02/23 12/02/23 Range/Units 05:16 05:16 05:16 WBC 5.5 (3.8-10.6) k/uL RBC 5.93 H (4.30-5.90) m/uL Hgb 19.2 H* (13.0-17.5) gm/dL Hct 58.5 H* (39.0-53.0) % MCV 98.8 (80.0-100.0) fL MCH 32.5 (25.0-35.0) pg MCHC 32.9 (31.0-37.0) g/dL RDW 13.4 (11.5-15.5) % Plt Count 122 L (150-450) k/uL MPV 9.4 Neutrophils % 66 % Lymphocytes % 18 % Monocytes % 11 % Eosinophils % 1 % Basophils % 1 % Neutrophils # 3.6 (1.3-7.7) k/uL Lymphocytes # 1.0 (1.0-4.8) k/uL Monocytes # 0.6 (0-1.0) k/uL Eosinophils # 0.0 (0-0.7) k/uL Basophils # 0.1 (0-0.2) k/uL PT 10.5 (10.0-12.5) sec INR 0.9 (<1.2) APTT 21.7 L (22.0-30.0) sec D-Dimer 3.77 H (<0.60) mg/L FEU Sodium (137-145) mmol/L Potassium (3.5-5.1) mmol/L Chloride (98-107) mmol/L Carbon Dioxide (22-30) mmol/L Anion Gap mmol/L BUN (9-20) mg/dL Creatinine (0.66-1.25) mg/dL Est GFR (CKD-EPI)AfAm (>60 ml/min/1.73 sqM) Est GFR (CKD-EPI)NonAf (>60 ml/min/1.73 sqM) Glucose (74-99) mg/dL Plasma Lactic Acid Ez 1.7 (0.7-2.0) mmol/L Calcium (8.4-10.2) mg/dL Total Bilirubin (0.2-1.3) mg/dL AST (17-59) U/L ALT (4-49) U/L Alkaline Phosphatase (38-126) U/L Troponin I (0.000-0.034) ng/mL NT-Pro-B Natriuret Pep pg/mL Total Protein (6.3-8.2) g/dL Albumin (3.5-5.0) g/dL 12/02/23 12/02/23 Range/Units 07:45 07:45 WBC (3.8-10.6) k/uL RBC (4.30-5.90) m/uL Hgb (13.0-17.5) gm/dL Hct (39.0-53.0) % MCV (80.0-100.0) fL MCH (25.0-35.0) pg MCHC (31.0-37.0) g/dL RDW (11.5-15.5) % Plt Count (150-450) k/uL MPV Neutrophils % % Lymphocytes % % Monocytes % % Eosinophils % % Basophils % % Neutrophils # (1.3-7.7) k/uL Lymphocytes # (1.0-4.8) k/uL Monocytes # (0-1.0) k/uL Eosinophils # (0-0.7) k/uL Basophils # (0-0.2) k/uL PT (10.0-12.5) sec INR (<1.2) APTT (22.0-30.0) sec D-Dimer (<0.60) mg/L FEU Sodium 132 L (137-145) mmol/L Potassium 4.7 (3.5-5.1) mmol/L Chloride 99 (98-107) mmol/L Carbon Dioxide 26 (22-30) mmol/L Anion Gap 7 mmol/L BUN 68 H (9-20) mg/dL Creatinine 1.71 H (0.66-1.25) mg/dL Est GFR (CKD-EPI)AfAm 44 (>60 ml/min/1.73 sqM) Est GFR (CKD-EPI)NonAf 38 (>60 ml/min/1.73 sqM) Glucose 106 H (74-99) mg/dL Plasma Lactic Acid Ez (0.7-2.0) mmol/L Calcium 8.0 L (8.4-10.2) mg/dL Total Bilirubin 0.9 (0.2-1.3) mg/dL AST 51 (17-59) U/L ALT 25 (4-49) U/L Alkaline Phosphatase 58 (38-126) U/L Troponin I 0.165 H* (0.000-0.034) ng/mL NT-Pro-B Natriuret Pep 2390 pg/mL Total Protein 6.1 L (6.3-8.2) g/dL Albumin 3.3 L (3.5-5.0) g/dL - EKG Data -: EKG Interpreted by Ar EKG shows normal: QRS complexes (Left anterior fascicular block. 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
[2023-12-02] MEDS: IPRATROPIUM-ALBUTEROL 3 ML NEB INHALATION STA (05:39)
[2023-12-02] MEDS: ALBUTEROL NEBULIZED 2.5 MG/3 ML INHALATION STA (05:39)
[2023-12-02 05:42] LABS: HCT 58.5 % (39.0-53.0); HGB 19.2 gm/dL (13.0-17.5)
--- NOTE | 2023-12-02 05:49 | XR ---
EXAMINATION TYPE: XR chest 2V DATE OF EXAM: 12/02/2023 COMPARISON: Chest x-ray from 2 days earlier HISTORY: Difficulty breathing. TECHNIQUE: Frontal and lateral views of the chest are obtained. FINDINGS: There is some chronic parenchymal changes bilaterally without suspicious focal air space o pacity, pleural effusion, or pneumothorax seen. The cardiac silhouette size remain within normal morgan its. The osseous structures are intact. IMPRESSION: No acute cardiopulmonary process. No significant change from most recent prior.
[2023-12-02 06:04] LABS: INR 0.9 (<1.2); Partial Thromboplastin Time 21.7 sec (22.0-30.0); Prothrombin Time 10.5 sec (10.0-12.5)
[2023-12-02] MEDS: DILTIAZEM DRIP BOLUS FROM BAG 1 MG SOLN IV ONE (06:51)
[2023-12-02] MEDS: DILTIAZEM 125 MG in SODIUM CHLORIDE 0.9% 100 ML IV SCH (06:52)
[2023-12-02] MEDS: ENOXAPARIN 60 MG/0.6 ML SYRINGE SQ ONE (06:53)
[2023-12-02 08:03] LABS: ALT 25 U/L (4-49); AST 51 U/L (17-59); African American GFR (CKD) 44 (>60 ml/min/1.73 sqM); Albumin 3.3 g/dL (3.5-5.0); Alkaline Phosphatase 58 U/L (38-126); Anion Gap 7 mmol/L; Blood Urea Nitrogen 68 mg/dL (9-20); Carbon Dioxide 26 mmol/L (22-30); Chloride 99 mmol/L (98-107); Glucose 106 mg/dL (74-99); Non-African American GFR(CKD) 38 (>60 ml/min/1.73 sqM); Sodium 132 mmol/L (137-145); Total Bilirubin 0.9 mg/dL (0.2-1.3); Total Protein 6.1 g/dL (6.3-8.2)
[2023-12-02 08:06] LABS: Potassium 4.7 mmol/L (3.5-5.1)
[2023-12-02 08:11] LABS: NT-Pro-B-Type Natriuretic Pept 2390 pg/mL
[2023-12-02] MEDS ORDERED: NALOXONE 0.4 MG/ML 1 ML VIAL IVP PRN (08:18)
[2023-12-02] MEDS ORDERED: IPRATROPIUM-ALBUTEROL 3 ML NEB INHALATION PRN (08:18)
[2023-12-02] MEDS: predniSONE 20 MG TAB PO SCH (09:34)
[2023-12-02] MEDS: LISINOPRIL-HCTZ 10-12.5 MG 1 EACH TAB PO SCH (09:35)
[2023-12-02] MEDS: ATORVASTATIN 40 MG TAB PO SCH (09:35)
[2023-12-02] MEDS: METOPROLOL TARTRATE 50 MG TAB PO SCH (09:35)
[2023-12-02] MEDS: ASPIRIN 81 MG PO SCH (09:36)
[2023-12-02] MEDS: OSELTAMIVIR 75 MG CAP PO SCH (10:31)
--- NOTE | 2023-12-02 11:34 | P.HPIM ---
History of Present Illness H&P Date: 12/02/23 73 year old M with PMH of HTN, HLD, CAD, CKD, lung CA, COPD, current smoker presents to the ED. Initially seen in the ED on 11/30 for respiratory distress, O2 saturation in the 80s requiring 6L NC. Initial evaluation at that time revealed lactic acidosis of 2.2, DEDRA with Cr 1.67 and Flu positive. Plans for admission at that time but patient left AMA. Presents back to the ED today with similar complaints. SOB ongoing for the past 2 weeks. Reports cough productive of yellow sputum. Follows Dr. Monteiro as his pulmonary doctor. Follows Dr. Jordan as his radiation oncologist. Continues to smoke 1.5 packs of cigarettes daily. In the ED, he underwent extensive evaluation. Tachycardic with HR in the 140s. BP 73/62, 91% on 1L NC. Desaturates to the 70s while talking. CBC WBC 5.93, Hg 19.2, Hct 58.5, Plt 122. APTT 21.7. D-Dimer 3.77. BMP Na 132, BUN 68, Cr 1.71, glu 106, Ca 8, alb 3.3. Lactic acid 1.7. Troponin 0.165. BNP 2390. CXR no acute process. EKG A-Fib with RVR with ST-T wave changes. Patient is admitted for acute hypoxic respiratory failure and A-Fib RVR. General: Non toxic, no distress, appears at stated age Derm: Warm, dry Head: Atraumatic, normocephalic, symmetric Eyes: EOMI, no lid lag, anicteric sclera Mouth: No lip lesion, mucus membranes moist Cardiovascular: S1S2 reg, no murmur Lungs: Expiratory wheezing bilateral, no rhonchi, no rales, no accessory muscle use Ext: No gross muscle atrophy, no edema, no contractures Neuro: no focal neuro deficits Psych: Alert, oriented, appropriate affect Patient has an acute diagnosis of AHRF due to COPD exacerbation with Flu + and A-Fib with RVR that poses a threat to life or bodily function. Acute hypoxic respiratory failure COPD exacerbation: DuoNeb QID scheduled and PRN for SOB/wheezing. Start SoluMedrol 60 mg IV Q6H. Perforomist INH BID. Pulmonary consult. Influenza: Tamiflu 75 mg PO BID. Atrial fibrillation with RVR: Cardizem drip at 5 mg/hr. Start Eliquis 5 mg PO BID for AC. Obtain Echo. Obtain TSH. Cardiology consult. Troponin elevation: Trend Trop/EKG to rule out ACS. Likely demand ischemia. Elevated D-Dimer: CTA chest pending. Erythrocytosis: Dehydration versus smoker. Start NS at 75 cc/hr. Smoker: Encouraged to quit. Offered nicotine patch. Chronic conditions: HTN, HLD, CAD, CKD, lung CA CODE STATUS: FULL CODE DVT Prophylaxis: Eliquis GI Prophylaxis: Designated medical POA if patient is not able to make medical decisions for themselves: I have reviewed the following organizational effectiveness consultant notes: I have reviewed the results of the following tests: As above. I have ordered the following tests: As above. I have discussed the care of this patient with the following independent historian: I have independently interpreted the following test below: I have discussed the management of this patient with the following physician: Past Medical History Past Medical History: Cancer, COPD, Hyperlipidemia, Hypertension, Myocardial Infarction ([place]) History of Any Multi-Drug Resistant Organisms: None Reported Past Surgical History: Heart Catheterization With Stent Additional Past Surgical History / Comment(s): stent placement within groin Past Psychological History: No Psychological Hx Reported Smoking Status: Current every day smoker Past Alcohol Use History: Rare Past Drug Use History: None Reported Medications and Allergies Home Medications Medication Instructions Recorded Confirmed Type Metoprolol Tartrate [Lopressor] 50 mg PO BID 10/19/20 12/02/23 History Aspirin EC [Ecotrin Low Dose] 81 mg PO DAILY 11/30/23 12/02/23 History Lisinopril-Hctz 10-12.5 mg 1 tab PO DAILY 11/30/23 12/02/23 History [Zestoretic 10-12.5] Oseltamivir [Tamiflu] 75 mg PO Q12HR 5 Days #10 cap 11/30/23 12/02/23 Rx Rosuvastatin [Crestor] 20 mg PO DAILY 11/30/23 12/02/23 History Tiotropium Br/Olodaterol HCl 2 puff INHALATION RT-DAILY 11/30/23 12/02/23 History [Stiolto Respimat Inhal [place]] Allergies Allergy/AdvReac Type Severity Reaction Status Date / Time No Known Allergies Allergy Verified 12/02/23 11:25 Physical Exam Vitals: Vital Signs Temp Pulse Resp BP Pulse Ox 12/02/23 06:26 141 H 24 104/90 92 L 12/02/23 06:14 133 H 12/02/23 05:39 80 12/02/23 04:55 97/73 12/02/23 04:43 97.7 F 83 24 73/62 91 L Intake and Output 12/01/23 12/02/23 12/02/23 22:59 06:59 14:59 Other: Weight 65.771 kg Results CBC & Chem 7: 12/02/23 05:16 12/02/23 07:45 Labs: Abnormal Lab Results - Last 24 Hours (Table) 12/02/23 12/02/23 12/02/23 Range/Units 05:16 05:16 07:45 RBC 5.93 H (4.30-5.90) m/uL Hgb 19.2 H* (13.0-17.5) gm/dL Hct 58.5 H* (39.0-53.0) % Plt Count 122 L (150-450) k/uL APTT 21.7 L (22.0-30.0) sec D-Dimer 3.77 H (<0.60) mg/L FEU Sodium 132 L (137-145) mmol/L BUN 68 H (9-20) mg/dL Creatinine 1.71 H (0.66-1.25) mg/dL Glucose 106 H (74-99) mg/dL Calcium 8.0 L (8.4-10.2) mg/dL Troponin I (0.000-0.034) ng/mL Total Protein 6.1 L (6.3-8.2) g/dL Albumin 3.3 L (3.5-5.0) g/dL 12/02/23 Range/Units 07:45 RBC (4.30-5.90) m/uL Hgb (13.0-17.5) gm/dL Hct (39.0-53.0) % Plt Count (150-450) k/uL APTT (22.0-30.0) sec D-Dimer (<0.60) mg/L FEU Sodium (137-145) mmol/L BUN (9-20) mg/dL Creatinine (0.66-1.25) mg/dL Glucose (74-99) mg/dL Calcium (8.4-10.2) mg/dL Troponin I 0.165 H* (0.000-0.034) ng/mL Total Protein (6.3-8.2) g/dL Albumin (3.5-5.0) g/dL
[2023-12-02] MEDS ORDERED: IPRATROPIUM 0.5 MG/2.5 ML NEBU INHALATION SCH (12:00)
[2023-12-02] MEDS: IPRATROPIUM-ALBUTEROL 3 ML NEB INHALATION SCH (12:30)
[2023-12-02] MEDS: methylPREDNISolone SOD SUCCI 125 MG/2 ML VIAL IV SCH (12:31)
[2023-12-02] MEDS: APIXABAN 5 MG TAB PO SCH (12:31)
--- NOTE | 2023-12-02 14:20 | CA ---
Transthoracic Echo Report Name: Low Coles Age: 73 Gender: M : 1950 Exam Date: 12/02/2023 11:02 Exam Location: [facility] Ht (in): 67 Wt (lb): 145 Ordering Physician: Jamie Mazariegos MD Attending/Referring Phys: [employer] Administrator Jayda Bauer RDCS Procedure CPT: Indications: afib Cardiac Hx: Technical Quality: Technically difficult study Contrast 1: Definity Total Dose (mL): 2 Contrast 2: Total Dose (mL): MEASUREMENTS (Male / Female) Normal Values 2D ECHO LV Diastolic Diameter PLAX 3.7 cm 4.2 - 5.9 / 3.9 - 5.3 cm LV Systolic Diameter PLAX 2.1 cm IVS Diastolic Thickness 1.4 cm 0.6 - 1.0 / 0.6 - 0.9 cm LVPW Diastolic Thickness 1.3 cm 0.6 - 1.0 / 0.6 - 0.9 cm LV Relative Wall Thickness 0.7 LA Volume 23.2 cm??? 18 - 58 / 22 - 52 cm??? LA Volume Index 13.1 cm???/m??? 16 - 28 cm???/m??? M-MODE Aortic Root Diameter MM 3.7 cm LA Systolic Diameter MM 4.2 cm LA Ao Ratio MM 1.2 AV Cusp Separation MM 2.0 cm DOPPLER AV Peak Velocity 98.1 cm/s AV Peak Gradient 3.9 mmHg AV Mean Velocity 75.3 cm/s AV Mean Gradient 2.4 mmHg AV Velocity Time Integral 20.1 cm LVOT Peak Velocity 83.6 cm/s LVOT Peak Gradient 2.8 mmHg LVOT Velocity Time Integral 17.0 cm MV Area PHT 2.7 cm??? Mitral E Point Velocity 69.3 cm/s Mitral A Point Velocity 82.0 cm/s Mitral E to A Ratio 0.8 MV Deceleration Time 276.0 ms MV E' Velocity 4.2 cm/s Mitral E to MV E' Ratio 16.6 FINDINGS Left Ventricle Moderately increased left ventricular wall thickness. Left ventricular cavity size normal. Apical septum hypokinesis.left ventricular ejection fraction is estimated at 45-50 %. Right Ventricle Right ventricle not well visualized. Right Atrium Right atrium not well visualized Left Atrium Normal left atrial size. Mitral Valve Mitral valve not well visualized. No mitral stenosis. Mild mitral regurgitation. Aortic Valve No aortic valve stenosis or regurgitation. Tricuspid Valve Tricuspid valve not well visualized. Trace tricuspid regurgitation. Pulmonic Valve Pulmonic valve not well visualized. Pericardium No pericardial effusion. Aorta Normal size aortic root and proximal ascending aorta. CONCLUSIONS Moderate increased left ventricular wall thickness Left ventricular ejection fraction 45-50% with apical hypokinesis Mild mitral regurgitation Trace tricuspid regurgitation Previewed by: Dr. Sy Rayo DO (Electronically Signed) Final Date: 02 December 2023 14:19
[2023-12-02] MEDS: FORMOTEROL FUMARATE 20 MCG/2 ML NEBU INHALATION SCH (19:47)
[2023-12-02] MEDS: OSELTAMIVIR 60 MG/10 ML ORAL SYRINGE PO SCH (21:16)
--- NOTE | 2023-12-03 11:11 | P.PN ---
Subjective Progress Note Date: 12/03/23 73 year old M with PMH of HTN, HLD, CAD, CKD, lung CA, COPD, current smoker presents to the ED. Initially seen in the ED on 11/30 for respiratory distress, O2 saturation in the 80s requiring 6L NC. Initial evaluation at that time revealed lactic acidosis of 2.2, DEDRA with Cr 1.67 and Flu positive. Plans for admission at that time but patient left AMA. Presents back to the ED today with similar complaints. SOB ongoing for the past 2 weeks. Reports cough productive of yellow sputum. Follows Dr. Monteiro as his pulmonary doctor. Follows Dr. Jordan as his radiation oncologist. Continues to smoke 1.5 packs of cigarettes daily. In the ED, he underwent extensive evaluation. Tachycardic with HR in the 140s. BP 73/62, 91% on 1L NC. Desaturates to the 70s while talking. CBC WBC 5.93, Hg 19.2, Hct 58.5, Plt 122. APTT 21.7. D-Dimer 3.77. BMP Na 132, BUN 68, Cr 1.71, glu 106, Ca 8, alb 3.3. Lactic acid 1.7. Troponin 0.165. BNP 2390. CXR no acute process. EKG A-Fib with RVR with ST-T wave changes. Patient is admitted for acute hypoxic respiratory failure and A-Fib RVR. 12/03 Patient was seen and examined. Reports improvement in his breathing. No other complaints. Saturating low 90s on 2L NC. Troponin 0.15, 0.204. Echocardiogram shows EF 45-50% with apical hypokinesis, moderate LV thickness, trace TR, mild MR. Cardiology and Pulmonology on board. CBC, BMP, TSH, CTA chest pending at the time of this note. General: Non toxic, no distress, appears at stated age Derm: Warm, dry Head: Atraumatic, normocephalic, symmetric Eyes: EOMI, no lid lag, anicteric sclera Mouth: No lip lesion, mucus membranes moist Cardiovascular: S1S2 reg, no murmur Lungs: Expiratory wheezing bilateral, no rhonchi, no rales, no accessory muscle use Ext: No gross muscle atrophy, no edema, no contractures Neuro: no focal neuro deficits Psych: Alert, oriented, appropriate affect Patient has an acute diagnosis of AHRF due to COPD exacerbation with Flu + and A-Fib with RVR that poses a threat to life or bodily function. Acute hypoxic respiratory failure COPD exacerbation: DuoNeb QID scheduled and PRN for SOB/wheezing. SoluMedrol 60 mg IV Q6H. Perforomist INH BID. Pulmonary consult. Influenza: Tamiflu 75 mg PO BID. Atrial fibrillation with RVR: Metoprolol 50 mg PO BID. Eliquis 5 mg PO BID for AC. Echo as above. Obtain TSH. Cardiology consult. Troponin elevation: Likely demand ischemia. ASA 81 mg PO QD. Lipitor 40mg PO QD. Echo shows apical hypokinesis. Metoprolol as above. Cardiology consult. Elevated D-Dimer: CTA chest pending. Erythrocytosis: Dehydration versus smoker. NS at 75 cc/hr. Smoker: Encouraged to quit. Offered nicotine patch. Chronic conditions: HTN, HLD, CAD, CKD, lung CA CODE STATUS: FULL CODE DVT Prophylaxis: Eliquis GI Prophylaxis: Designated medical POA if patient is not able to make medical decisions for themselves: I have reviewed the following portrait consultant notes: I have reviewed the results of the following tests: Troponin x 2. Echocardiogram. I have ordered the following tests: Pending: CBC, BMP, TSH, CTA chest I have discussed the care of this patient with the following independent historian: I have independently interpreted the following test below: I have discussed the management of this patient with the following physician: Objective - Vital Signs Vital signs: Vital Signs Temp 97.6 F 12/03/23 08:00 Pulse 67 12/03/23 08:37 Resp 18 12/03/23 08:00 BP 129/76 12/03/23 08:00 Pulse Ox 91 L 12/03/23 08:00 FiO2 Intake & Output 12/02/23 12/03/23 12/03/23 18:59 06:59 18:59 Intake Total 120 30 10 Balance 120 30 10 Weight 65.771 kg Intake: IV 30 10 Invasive Line 1 20 Invasive Line 2 10 10 Oral 120 Other: Voiding Method Toilet Toilet # Voids 1 1 - Labs CBC & Chem 7: 12/02/23 05:16 12/02/23 07:45 Labs: Abnormal Lab Results - Last 24 Hours (Table) 12/02/23 12/02/23 Range/Units 10:38 12:38 Troponin I 0.150 H* 0.204 H* (0.000-0.034) ng/mL
[2023-12-03 11:14] LABS: African American GFR (CKD) 51 (>60 ml/min/1.73 sqM); Anion Gap 8 mmol/L; Blood Urea Nitrogen 57 mg/dL (9-20); Calcium 8.4 mg/dL (8.4-10.2); Carbon Dioxide 28 mmol/L (22-30); Chloride 100 mmol/L (98-107); Glucose 128 mg/dL (74-99); Non-African American GFR(CKD) 44 (>60 ml/min/1.73 sqM); Sodium 136 mmol/L (137-145)
[2023-12-03 11:15] LABS: HGB 17.9 gm/dL (13.0-17.5); Hypochromasia Slight; MCV 100.2 fL (80.0-100.0); Mean Platelet Volume 8.3; Platelet Count 157 k/uL (150-450); RBC 5.59 m/uL (4.30-5.90); WBC 9.8 k/uL (3.8-10.6)
[2023-12-03 11:30] LABS: HCT 55.9 % (39.0-53.0)
--- NOTE | 2023-12-03 11:49 | P.CRDCN ---
History of Present Illness Consult date: 12/03/23 Consult reason: atrial fibrillation (New onset) History of present illness: History of present illness: This is a 73-year-old male patient of Dr. Guzman with past medical history of coronary artery disease status post bypass surgery, hypertension, dyslipidemia, carotid stenosis status post carotid endarterectomy, lung cancer. We have been asked to evaluate the patient for A-fib with RVR. Patient initially presented to the hospital on 11/30 for difficulty breathing with pulse ox in the low 80s, nonproductive cough and audible wheezing. Patient was prepared for admission to the hospital but signed out AMA. Patient has been started on Eliquis 5 mg twice daily and continued on his home medication of Lopressor 50 mg twice daily. Patient denies chest pain. EKG atrial fibrillation with ventricular rate of 113 bpm Chest x-ray: No acute cardiopulmonary process. CTA of the chest: Echocardiogram performed 12/02/2023 reveals EF of 45 to 50% with apical hypokinesis, moderate increase left ventricular wall thickness. Mild mitral regurgitation, trace tricuspid regurgitation. WBC 5.5, hemoglobin 19.2, platelet count 122. Sodium 132, potassium 4.7, BUN 68 creatinine 1.71. Troponin 0.165, 0.15, 0.204. proBNP 2390. D-dimer 3.77. Lactic acid 1.7. Home cardiac medications: Aspirin 81 mg daily, lisinopril/hydrochlorothiazide 10/12.5 mg 1 daily, Lopressor 50 mg twice daily, Crestor 20 mg daily Lexiscan stress test performed in the office on 09/20/2021 was inconclusive EKG due to baseline abnormalities. Abnormal nuclear scan showing evidence of prior apical myocardial infarction with preserved LV function without any ischemia. Echocardiogram performed on 10/19/2022 in the office revealed EF of 55%. Review Of Systems: At the time of my exam: CONSTITUTIONAL: Denies fever or chills. HEENT: Denies blurred vision, vision changes, or eye pain. Denies hemoptysis CARDIOVASCULAR: Denies chest pain. Denies orthopnea. Denies PND. Denies palpitations RESPIRATORY: Denies shortness of breath. GASTROINTESTINAL: Denies abdominal pain. Denies nausea or vomiting. HEMATOLOGIC: Denies bleeding disorders. GENITOURINARY: Denies any blood in urine. SKIN: Denies pruitis. Denies rash. Physical examination: Gen: This is a 73-year-old male in no acute distress VS: reviewed HEENT: Head is atraumatic, normocephalic. Pupils equal, round. Sclerae is anicteric. NECK: Supple. No JVD. LUNGS: Clear to auscultation. No wheezes or rhonchi. No intercostal retractions. HEART: Regular rate and rhythm. No murmur. ABDOMEN: Soft No tenderness. EXTREMITIES: No pedal edema. No calf tenderness. NEUROLOGICAL: Patient is awake, alert and oriented x3. Assessment: Acute hypoxic respiratory failure secondary to COPD exacerbation and influenza New onset paroxysmal atrial fibrillation with RVR, currently SR Elevated troponins most likely type 2 [place] due to hypoxia, influenza, AECOPD, atrial fibrillation Acute kidney injury and chronic kidney disease Thrombocytopenia Mild drop in EF to 45-50% from previous 55% Struve coronary artery disease with CABG Hypertension Dyslipidemia Carotid stenosis status post carotid endarterectomy History of lung cancer History of CVA Plan: Continue patient on Eliquis 5 mg twice daily and Lopressor 50 mg twice daily TSH is pending Patient's nurse will call on CTA results Further recommendations to follow based upon clinical course At time of discharge, patient will follow up with Dr. Guzman in 1-2 weeks for ad ditional workup. Thank you kindly for this consultation. Nurse practitioner note has been reviewed, I agree with documented findings and plan of care. Patient was seen and examined. Past Medical History Past Medical History: Cancer, COPD, Hyperlipidemia, Hypertension, Myocardial Infarction ([place]) Last Myocardial Infarction Date:: Unknown History of Any Multi-Drug Resistant Organisms: None Reported Past Surgical History: Heart Catheterization With Stent Additional Past Surgical History / Comment(s): stent placement within groin Past Anesthesia/Blood Transfusion Reactions: No Reported Reaction Date of Last Stent Placement:: Unknown Past Psychological History: No Psychological Hx Reported Smoking Status: Current every day smoker Past Alcohol Use History: Rare Past Drug Use History: None Reported Medications and Allergies Home Medications Medication Instructions Recorded Confirmed Type Metoprolol Tartrate [Lopressor] 50 mg PO BID 10/19/20 12/02/23 History Aspirin EC [Ecotrin Low Dose] 81 mg PO DAILY 11/30/23 12/02/23 History Lisinopril-Hctz 10-12.5 mg 1 tab PO DAILY 11/30/23 12/02/23 History [Zestoretic 10-12.5] Oseltamivir [Tamiflu] 75 mg PO Q12HR 5 Days #10 cap 11/30/23 12/02/23 Rx Rosuvastatin [Crestor] 20 mg PO DAILY 11/30/23 12/02/23 History Tiotropium Br/Olodaterol HCl 2 puff INHALATION RT-DAILY 11/30/23 12/02/23 History [Stiolto Respimat Inhal [place]] Allergies Allergy/AdvReac Type Severity Reaction Status Date / Time No Known Allergies Allergy Verified 12/02/23 11:25 Physical Exam Vitals: Vital Signs Temp Pulse Pulse Resp BP BP BP 12/03/23 08:37 67 12/03/23 08:26 65 12/03/23 04:00 97.6 F 64 18 120/66 12/03/23 00:00 68 18 125/68 12/02/23 21:00 97.4 F L 68 16 135/65 12/02/23 19:58 67 12/02/23 19:57 67 12/02/23 19:47 65 12/02/23 19:34 73 19 99/52 12/02/23 17:20 97.6 F 16 96/71 12/02/23 16:00 69 16 110/68 12/02/23 15:00 75 20 106/60 12/02/23 13:00 68 16 102/60 12/02/23 12:39 67 12/02/23 12:38 60 16 102/60 12/02/23 12:30 68 12/02/23 12:00 68 16 102/50 12/02/23 10:00 75 20 102/76 Pulse Ox 12/03/23 08:37 12/03/23 08:26 12/03/23 04:00 93 L 12/03/23 00:00 91 L 12/02/23 21:00 94 L 12/02/23 19:58 12/02/23 19:57 12/02/23 19:47 12/02/23 19:34 91 L 12/02/23 17:20 94 L 12/02/23 16:00 92 L 12/02/23 15:00 92 L 12/02/23 13:00 93 L 12/02/23 12:39 12/02/23 12:38 93 L 12/02/23 12:30 93 L 12/02/23 12:00 94 L 12/02/23 10:00 94 L Intake and Output 12/02/23 12/03/23 12/03/23 22:59 06:59 14:59 Intake Total 130 20 Balance 130 20 Intake: IV 10 20 Invasive Line 1 10 10 Invasive Line 2 10 Oral 120 Other: Voiding Method Toilet Toilet # Voids 1 1 Weight 65.771 kg Results 12/03/23 09:51 12/03/23 09:51 Cardiac Enzymes 12/02/23 12/02/23 Range/Units 10:38 12:38 Troponin I 0.150 H* 0.204 H* (0.000-0.034) ng/mL Current Medications Generic Name Dose Route Start Last Admin Trade Name Freq PRN Reason Stop Dose Admin Albuterol/Ipratropium 3 ml 12/02/23 12:00 12/03/23 08:23 Ipratropium-Albuterol 3 Ml Neb INHALATION 3 ml RT-QID SADI Administration Albuterol/Ipratropium 3 ml 12/02/23 08:18 Ipratropium-Albuterol 3 Ml Neb INHALATION RT-Q2H PRN Shortness Of Breath Or Wheezing Apixaban 5 mg 12/02/23 11:45 12/02/23 21:16 Apixaban 5 Mg Tab PO 5 mg BID SADI Administration Protocol Aspirin 81 mg 12/02/23 09:00 12/02/23 09:36 Aspirin 81 Mg PO 81 mg DAILY SADI Administration Atorvastatin Calcium 40 mg 12/02/23 09:00 12/02/23 09:35 Atorvastatin 40 Mg Tab PO 40 mg DAILY SADI Administration Formoterol Fumarate 20 mcg 12/02/23 20:00 12/03/23 08:23 Formoterol Fumarate 20 Mcg/2 Ml Nebu INHALATION 20 mcg RT-BID SADI Administration Lisinopril/HCTZ 1 each 12/02/23 09:00 12/02/23 09:35 Lisinopril-Hctz 10-12.5 Mg 1 Each Tab PO 1 each DAILY SADI Administration Methylprednisolone Sodium Succinate 60 mg 12/02/23 12:00 12/03/23 06:18 Methylprednisolone Sod Succi 125 Mg/2 Ml Vial IV 60 mg Q6HR SADI Administration Metoprolol Tartrate 50 mg 12/02/23 09:00 12/02/23 21:16 Metoprolol Tartrate 50 Mg Tab PO 50 mg BID SADI Administration Naloxone HCl 0.2 mg 12/02/23 08:18 Naloxone 0.4 Mg/Ml 1 Ml Vial IVP Q2M PRN Opioid Reversal Oseltamivir Phosphate 30 mg 12/02/23 21:00 12/02/23 21:16 Oseltamivir 60 Mg/10 Ml Oral Syringe PO 12/04/23 23:59 30 mg Q12HR SADI Administration Intake and Output 12/02/23 12/03/23 12/03/23 22:59 06:59 14:59 Intake Total 130 20 Balance 130 20 Intake: IV 10 20 Invasive Line 1 10 10 Invasive Line 2 10 Oral 120 Other: Voiding Method Toilet Toilet # Voids 1 1 Weight 65.771 kg 12/02/23 05:16 12/02/23 07:45
--- NOTE | 2023-12-03 13:00 | P.CNPUL ---
History of Present Illness Consult date: 12/03/23 Requesting physician: Batsheva Almendarez Reason for consult: dyspnea, cough, COPD, hypoxemia, lung mass, abnormal CXR/CT Chief complaint: Shortness of breath. History of present illness: Pulmonary consult dated December 03, 2023. 73-year-old male who was in the emergency department, on December 03, and left AGAINST MEDICAL ADVICE. At that time, he was complaining of shortness of breath, and apparently tested positive for influenza A. The patient has a history of ongoing tobacco use, at 1 pack a day. I see him in the office. I initially saw him for an abnormal CT scan which revealed a 1.9 cm lesion in the right upper lobe. The patient has very severe chronic lung disease, with an FEV1 of 27% of predicted. I sent the patient to Dr. Keating, for consideration of stereotactic body radiotherapy (SBRT), which she had. Currently, the patient is resting comfortably in room 371. He came back into the hospital on the third, to be evaluated. He is currently on 2 L of oxygen. He is not receiving any IV fluids. The patient has made himself a DO NOT RESUSCITATE patient. He came in primarily for shortness of breath, cough, chest congestion, and chest tightness. Current laboratory data includes a white count 9.8, hemoglobin 17.9, hematocrit 55.9, and a platelet count of 157,000. His D-dimer was 3.77. Sodium 136, potassium 4, chloride 100, CO2 28, BUN 57, and creatinine 1.53. The pa tient's N-terminal proBNP was elevated at 2390. His troponins were mildly elevated at 0.165, 0.150, 0.204, and 0.075. The patient's chest x-ray, showed no acute cardiopulmonary disease disease, other than his underlying COPD. Review of Systems REVIEW OF SYSTEMS: CONSTITUTIONAL: [Negative.] NEUROLOGIC: [ Negative.] HEENT: [ Negative.] CARDIAC: [Negative.] PULMONARY: Shortness of breath, chronic cough, occasional phlegm production. GI: [Negative.] : [Negative.] RHEUMATOLOGIC: [ Negative.] IMMUNOLOGIC: [ Negative.] ENDOCRINE: [Negative. ] DERMATOLOGIC: [Negative.] Past Medical History Past Medical History: Cancer, COPD, Hyperlipidemia, Hypertension, Myocardial Infarction ([place]) Last Myocardial Infarction Date:: Unknown History of Any Multi-Drug Resistant Organisms: None Reported Past Surgical History: Heart Catheterization With Stent Additional Past Surgical History / Comment(s): stent placement within groin Past Anesthesia/Blood Transfusion Reactions: No Reported Reaction Date of Last Stent Placement:: Unknown Past Psychological History: No Psychological Hx Reported Smoking Status: Current every day smoker Past Alcohol Use History: Rare Past Drug Use History: None Reported Medications and Allergies Home Medications Medication Instructions Recorded Confirmed Type Metoprolol Tartrate [Lopressor] 50 mg PO BID 10/19/20 12/02/23 History Aspirin EC [Ecotrin Low Dose] 81 mg PO DAILY 11/30/23 12/02/23 History Lisinopril-Hctz 10-12.5 mg 1 tab PO DAILY 11/30/23 12/02/23 History [Zestoretic 10-12.5] Oseltamivir [Tamiflu] 75 mg PO Q12HR 5 Days #10 cap 11/30/23 12/02/23 Rx Rosuvastatin [Crestor] 20 mg PO DAILY 11/30/23 12/02/23 History Tiotropium Br/Olodaterol HCl 2 puff INHALATION RT-DAILY 11/30/23 12/02/23 History [Stiolto Respimat Inhal [place]] Allergies Allergy/AdvReac Type Severity Reaction Status Date / Time No Known Allergies Allergy Verified 12/02/23 11:25 Physical Exam Osteopathic Statement: *. No significant issues noted on an osteopathic structural exam other than those noted in the History and Physical/Consult. Vitals: Vital Signs Temp Pulse Pulse Resp BP BP BP 12/03/23 12:13 65 12/03/23 12:03 64 12/03/23 08:37 67 12/03/23 08:26 65 12/03/23 08:00 97.6 F 62 18 129/76 12/03/23 04:00 97.6 F 64 18 120/66 12/03/23 00:00 68 18 125/68 12/02/23 21:00 97.4 F L 68 16 135/65 12/02/23 19:58 67 12/02/23 19:57 67 12/02/23 19:47 65 12/02/23 19:34 73 19 99/52 12/02/23 17:20 97.6 F 16 96/71 12/02/23 16:00 69 16 110/68 12/02/23 15:00 75 20 106/60 12/02/23 13:00 68 16 102/60 Pulse Ox 12/03/23 12:13 12/03/23 12:03 12/03/23 08:37 12/03/23 08:26 12/03/23 08:00 91 L 12/03/23 04:00 93 L 12/03/23 00:00 91 L 12/02/23 21:00 94 L 12/02/23 19:58 12/02/23 19:57 12/02/23 19:47 12/02/23 19:34 91 L 12/02/23 17:20 94 L 12/02/23 16:00 92 L 12/02/23 15:00 92 L 12/02/23 13:00 93 L Intake and Output 12/02/23 12/03/23 12/03/23 22:59 06:59 14:59 Intake Total 130 20 10 Balance 130 20 10 Intake: IV 10 20 10 Invasive Line 1 10 10 Invasive Line 2 10 10 Oral 120 Other: Voiding Method Toilet Toilet Toilet # Voids 1 1 2 Weight 65.771 kg No acute distress, oriented 3. Currently on 2 L of oxygen. No conversational dyspnea or use of accessory muscles. HEENT examination is grossly unremarkable. Mucous membranes are moist. No oral lesions. Neck supple. Full range of motion. No adenopathy thyromegaly or neck vein distention. Cardiovascular examination reveals regular rhythm rate. S1-S2 normal. No S3 or S4. No discernible murmur noted. Heart sounds are distant. Heart rate 65 bpm. Lungs reveal inspiratory and expiratory rhonchi and wheezes. Breath sounds are equal bilaterally. Breath sounds are diminished throughout. No crackles. 2 L saturation is 93%. Abdomen soft bowel sounds are heard. No masses or tenderness. Extremities are intact. No cyanosis clubbing or edema. Skin is without rash or lesion. Neurologic examination is brief but nonfocal. Results - Laboratory Findings CBC and BMP: 12/03/23 09:51 12/03/23 09:51 PT/INR, D-dimer PT 10.5 sec (10.0-12.5) 12/02/23 05:16 INR 0.9 (<1.2) 12/02/23 05:16 D-Dimer 3.77 mg/L FEU (<0.60) H 12/02/23 05:16 Abnormal lab findings: Abnormal Labs 12/02/23 12/02/23 12/02/23 05:16 05:16 07:45 RBC 5.93 H Hgb 19.2 H* Hct 58.5 H* MCV Plt Count 122 L APTT 21.7 L D-Dimer 3.77 H Sodium 132 L BUN 68 H Creatinine 1.71 H Glucose 106 H Calcium 8.0 L Troponin I Total Protein 6.1 L Albumin 3.3 L 12/02/23 12/02/23 12/02/23 07:45 10:38 12:38 RBC Hgb Hct MCV Plt Count APTT D-Dimer Sodium BUN Creatinine Glucose Calcium Troponin I 0.165 H* 0.150 H* 0.204 H* Total Protein Albumin 12/03/23 12/03/23 12/03/23 09:51 09:51 09:51 RBC Hgb 17.9 H Hct 55.9 H MCV 100.2 H Plt Count APTT D-Dimer Sodium 136 L BUN 57 H Creatinine 1.53 H Glucose 128 H Calcium Troponin I 0.075 H* Total Protein Albumin - Diagnostic Findings Chest x-ray: image reviewed CT scan - chest: image reviewed Assessment and Plan Assessment: Acute hypoxemic respiratory failure, secondary to COPD exacerbation, complicated by influenza A. Suspected lung cancer, right upper lobe, status post SBRT. History of severe/stage IV COPD, with an FEV1 that is 27% of predicted. Chronic hypoxemic respiratory failure, on home O2. Ongoing tobacco use with nicotine addiction. Of hyperlipidemia. History of hypertension. History of myocardial infarction, status post PCI/stent placement. Plan: Plan dated December 03, 2023. The patient was in the emergency department, on November 30, for shortness of breath, COPD exacerbation, and tested positive for influenza. The patient decided to leave, AGAINST MEDICAL ADVICE. He apparently did receive a prescription for Tamiflu. I am not sure that he started it, or took it. He came back into the emergency department, on December 02, with progressive and worsening shortness of breath. Currently, the patient is seen in room 371. He is on 2 L of oxygen. The patient does continue to smoke 1 pack of cigarettes a day. His FEV1, is 27% of predicted. He is currently on Tamiflu. Labs, x-rays, and medications are all reviewed. Prognosis is certainly very guarded. Time with Patient: Greater than 30
[2023-12-03] MEDS ORDERED: DEXTROSE 50% SYRINGE 50 ML IVP PRN ×2 (20:39)
[2023-12-03 20:43] LABS: Glucose,Whole Blood 226 mg/dL (70-110)
[2023-12-03] MEDS: BUDESONIDE 1 MG/2 ML NEBU INHALATION SCH (21:01)
[2023-12-04] MEDS: INSULIN ASPART (NovoLOG) 100 UNIT/ML VIAL SQ SCH (00:29)
[2023-12-04 06:00] LABS: Glucose,Whole Blood 148 mg/dL (70-110)
[2023-12-04 08:58] LABS: HGB 17.5 gm/dL (13.0-17.5); Hypochromasia Slight; MCH 31.5 pg (25.0-35.0); MCHC 31.5 g/dL (31.0-37.0); MCV 100.1 fL (80.0-100.0); Mean Platelet Volume 8.1; Platelet Count 194 k/uL (150-450); RBC 5.56 m/uL (4.30-5.90)
[2023-12-04 08:59] LABS: African American GFR (CKD) 52 (>60 ml/min/1.73 sqM); Anion Gap 5 mmol/L; Blood Urea Nitrogen 58 mg/dL (9-20); Calcium 8.5 mg/dL (8.4-10.2); Carbon Dioxide 35 mmol/L (22-30); Chloride 98 mmol/L (98-107); Glucose 137 mg/dL (74-99); Non-African American GFR(CKD) 45 (>60 ml/min/1.73 sqM); Potassium 4.1 mmol/L (3.5-5.1); Sodium 138 mmol/L (137-145)
[2023-12-04 09:11] LABS: HCT 55.6 % (39.0-53.0)
--- NOTE | 2023-12-04 09:47 | P.PN ---
Subjective Progress Note Date: 12/04/23 73 year old M with PMH of HTN, HLD, CAD, CKD, lung CA, COPD, current smoker presents to the ED. Initially seen in the ED on 11/30 for respiratory distress, O2 saturation in the 80s requiring 6L NC. Initial evaluation at that time revealed lactic acidosis of 2.2, DEDRA with Cr 1.67 and Flu positive. Plans for admission at that time but patient left AMA. Presents back to the ED today with similar complaints. SOB ongoing for the past 2 weeks. Reports cough productive of yellow sputum. Follows Dr. Monteiro as his pulmonary doctor. Follows Dr. Jordan as his radiation oncologist. Continues to smoke 1.5 packs of cigarettes daily. In the ED, he underwent extensive evaluation. Tachycardic with HR in the 140s. BP 73/62, 91% on 1L NC. Desaturates to the 70s while talking. CBC WBC 5.93, Hg 19.2, Hct 58.5, Plt 122. APTT 21.7. D-Dimer 3.77. BMP Na 132, BUN 68, Cr 1.71, glu 106, Ca 8, alb 3.3. Lactic acid 1.7. Troponin 0.165. BNP 2390. CXR no acute process. EKG A-Fib with RVR with ST-T wave changes. Patient is admitted for acute hypoxic respiratory failure and A-Fib RVR. Troponin trended 0.165, 0.15, 0.204, 0.075. Attributed to A-Fib RVR. Echocardiogram shows EF 45-50% with apical hypokinesis, moderate LV thickness, trace TR, mild MR. Cardiology on board. Started on Metoprolol 50 mg PO BID and Eliquis 5 mg PO BID for A-Fib. Started on Tamiflu for treatment of Influenza. Started on bronchodilators and SoluMedrol for COPD exacerbation. Pulmonary on board. 12/03 Patient was seen and examined. No complaints. Saturating low 90s on 4L NC. TSH 0.734. Discussed with MURPHY Nelson, no PE seen on CTA chest. CBC Hct 55.9 MCV 100.1. BMP bicarb 35, BUN 58, Cr 1.51, glu 137. CTA chest official read pending at the time of this note. EKG sinus rhythm with PVCs. General: Non toxic, no distress, appears at stated age Derm: Warm, dry Head: Atraumatic, normocephalic, symmetric Eyes: EOMI, no lid lag, anicteric sclera Mouth: No lip lesion, mucus membranes moist Cardiovascular: S1S2 reg, no murmur Lungs: Expiratory wheezing bilateral, no rhonchi, no rales, no accessory muscle use Ext: No gross muscle atrophy, no edema, no contractures Neuro: no focal neuro deficits Psych: Alert, oriented, appropriate affect Patient has an acute diagnosis of AHRF due to COPD exacerbation with Flu + and A-Fib with RVR that poses a threat to life or bodily function. Acute hypoxic respiratory failure COPD exacerbation: DuoNeb QID scheduled and PRN for SOB/wheezing. SoluMedrol 60 mg IV Q6H. Perforomist INH BID. Pulmonary on board. Influenza A: Tamiflu 75 mg PO BID. Atrial fibrillation with RVR: Metoprolol 50 mg PO BID. Eliquis 5 mg PO BID for AC. Echo as above. TSH as above. Cardiology on board. Troponin elevation: Likely demand ischemia. ASA 81 mg PO QD. Lipitor 40mg PO QD. Echo shows apical hypokinesis. Metoprolol as above. Cardiology on board. Elevated D-Dimer: CTA chest negative for PE per MURPHY Nelson. Erythrocytosis: Dehydration versus increased erythropoietin from chronic hypoxia. NS at 75 cc/hr. Smoker: Encouraged to quit. Offered nicotine patch. Chronic conditions: HTN, HLD, CAD, CKD, lung CA CODE STATUS: NO CODE DVT Prophylaxis: Eliquis GI Prophylaxis: Designated medical POA if patient is not able to make medical decisions for themselves: I have reviewed the following training consultant notes: Pulmonary. Cardiology. I have reviewed the results of the following tests: TSH. CBC. BMP. I have ordered the following tests: CBC, BMP, CTA chest I have discussed the care of this patient with the following independent historian: I have independently interpreted the following test below: EKG. I have discussed the management of this patient with the following physician: Objective - Vital Signs Vital signs: Vital Signs Temp 97.9 F 12/03/23 16:00 Pulse 66 12/04/23 04:00 Resp 18 12/04/23 04:00 BP 119/66 12/04/23 04:00 Pulse Ox 91 L 12/04/23 04:00 FiO2 Intake & Output 12/03/23 12/04/23 12/04/23 18:59 06:59 18:59 Intake Total 380 20 Balance 380 20 Intake: IV 20 20 Invasive Line 2 20 20 Oral 360 Other: Voiding Method Toilet Toilet # Voids 1 2 - Labs CBC & Chem 7: 12/04/23 07:51 12/04/23 07:51 Labs: Abnormal Lab Results - Last 24 Hours (Table) 12/03/23 12/03/23 12/03/23 Range/Units 09:51 09:51 09:51 Hgb 17.9 H (13.0-17.5) gm/dL Hct 55.9 H (39.0-53.0) % MCV 100.2 H (80.0-100.0) fL Sodium 136 L (137-145) mmol/L BUN 57 H (9-20) mg/dL Creatinine 1.53 H (0.66-1.25) mg/dL Glucose 128 H (74-99) mg/dL POC Glucose (mg/dL) (70-110) mg/dL Troponin I 0.075 H* (0.000-0.034) ng/mL 12/03/23 12/04/23 Range/Units 20:42 05:59 Hgb (13.0-17.5) gm/dL Hct (39.0-53.0) % MCV (80.0-100.0) fL Sodium (137-145) mmol/L BUN (9-20) mg/dL Creatinine (0.66-1.25) mg/dL Glucose (74-99) mg/dL POC Glucose (mg/dL) 226 H 148 H (70-110) mg/dL Troponin I (0.000-0.034) ng/mL
[2023-12-04 11:24] LABS: Glucose,Whole Blood 209 mg/dL (70-110)
--- NOTE | 2023-12-04 12:20 | CT ---
EXAMINATION TYPE: CT chest angio for PE DATE OF EXAM: 12/02/2023 COMPARISON: HISTORY: SOB, elevated d dimer CT DLP: 281.7 mGycm CONTRAST: CT chest with contrast and 3D reconstruction with MIP imaging is performed with IV Contrast, patient injected with 65 mL of Isovue 300. Contrast-enhanced CT of the chest was performed through the course of the pulmonary arteries with reji g and mediastinal window settings submitted. 3D reconstruction with MIP imaging was also performed. PULMONARY ARTERIES: The pulmonary arteries and their major tributaries are patent. I do not see brant dence for sizable filling defect to suggest pulmonary embolic process. LUNGS: The lungs are clear and free of infiltrate. No evidence for atelectasis. Spiculated right uppe r lobe pulmonary nodule measuring 1.1 cm. Correlate with PET/CT to exclude neoplasm. Lower lobe bronc hiectasis. No pleural effusion. MEDIASTINUM: Aneurysmal dilatation of the distal ascending thoracic aorta measuring up to 3.7 cm. The heart is mildly enlarged. No evidence for mediastinal mass. No mediastinal lymph nodes greater joanne n 1cm. HILAR STRUCTURES: No evidence for mass. No hilar lymph nodes greater than 1 cm. UPPER ABDOMEN: No significant abnormality is seen. IMPRESSION: 1. No evidence for Pulmonary embolism at this time. 2.Spiculated right upper lobe pulmonary nodule measuring 1.1 cm. Correlate with PET/CT to exclude jessica plasm.
--- NOTE | 2023-12-04 12:59 | P.PN ---
Subjective HISTORY OF PRESENT ILLNESS: This is a 73-year-old male patient of Dr. Guzman with past medical history of coronary artery disease status post bypass surgery, hypertension, dyslipidemia, carotid stenosis status post carotid endarterectomy, lung cancer. We have been asked to evaluate the patient for A-fib with RVR. Patient initially presented to the hospital on 11/30 for difficulty breathing with pulse ox in the low 80s, nonproductive cough and audible wheezing. Patient was prepared for admission to the hospital but signed out AMA. Patient has been started on Eliquis 5 mg twice daily and continued on his home medication of Lopressor 50 mg twice daily. Patient denies chest pain. EKG atrial fibrillation with ventricular rate of 113 bpm Chest x-ray: No acute cardiopulmonary process. CTA of the chest: Echocardiogram performed 12/02/2023 reveals EF of 45 to 50% with apical hypokinesis, moderate increase left ventricular wall thickness. Mild mitral regurgitation, trace tricuspid regurgitation. WBC 5.5, hemoglobin 19.2, platelet count 122. Sodium 132, potassium 4.7, BUN 68 creatinine 1.71. Troponin 0.165, 0.15, 0.204. proBNP 2390. D-dimer 3.77. Lactic acid 1.7. Home cardiac medications: Aspirin 81 mg daily, lisinopril/hydrochlorothiazide 10/12.5 mg 1 daily, Lopressor 50 mg twice daily, Crestor 20 mg daily Lexiscan stress test performed in the office on 09/20/2021 was inconclusive EKG due to baseline abnormalities. Abnormal nuclear scan showing evidence of prior apical myocardial infarction with preserved LV function without any ischemia. Echocardiogram performed on 10/19/2022 in the office revealed EF of 55%. 12/04/2023 Patient examined this morning at the bedside. Patient currently denies chest pain or pressure. He currently denies shortness of breath. However patient is requiring nasal cannula to maintain oxygen saturations greater than 92%. Nasal cannula currently at 4 L. Blood pressure stable at 112/64. Telemetry reveals sinus mechanism. PHYSICAL EXAM: VITAL SIGNS: Reviewed. GENERAL: Well-developed in no acute distress. NECK: Supple. No JVD or thyromegaly LUNGS: Respirations even and unlabored. Lungs with decreased air exchange. HEART: Regular rate and rhythm. S1 and S2 heard. EXTREMITIES: Normal range of motion. No clubbing or cyanosis. Peripheral pulses intact. No lower extremity edema ASSESSMENT: Acute hypoxic respiratory failure secondary to COPD exacerbation and influenza New onset paroxysmal atrial fibrillation with RVR, currently SR Elevated troponins most likely type 2 VA due to hypoxia, influenza, AECOPD, atrial fibrillation Acute kidney injury and chronic kidney disease Thrombocytopenia Mild drop in EF to 45-50% from previous 55% Struve coronary artery disease with CABG Hypertension Dyslipidemia Carotid stenosis status post carotid endarterectomy History of lung cancer History of CVA PLAN: Continue current cardiac medications Wean oxygen as tolerated. Patient may require home oxygen at the time of discharge No further inpatient recommendations from a cardiac standpoint We will sign off. Please reconsult if needed. Nurse practitioner note has been reviewed by physician. Signing provider agrees with the documented findings, assessment, and plan of care documented by MANAGER [employer]VIEW as a scribe. Objective - Vital Signs Vital signs: Vital Signs Temp 97.3 F L 12/04/23 08:00 Pulse 72 12/04/23 12:02 Resp 16 12/04/23 12:00 BP 112/64 12/04/23 12:00 Pulse Ox 92 L 12/04/23 12:00 FiO2 Intake & Output 12/03/23 12/04/23 12/04/23 18:59 06:59 18:59 Intake Total 380 20 190 Balance 380 20 190 Intake: IV 20 20 10 Invasive Line 2 20 20 10 Oral 360 180 Other: Voiding Method Toilet Toilet Toilet # Voids 1 2 2 - Labs CBC & Chem 7: 12/04/23 07:51 12/04/23 07:51 Labs: Abnormal Lab Results - Last 24 Hours (Table) 12/03/23 12/04/23 12/04/23 Range/Units 20:42 05:59 07:51 Hct 55.6 H (39.0-53.0) % MCV 100.1 H (80.0-100.0) fL Carbon Dioxide (22-30) mmol/L BUN (9-20) mg/dL Creatinine (0.66-1.25) mg/dL Glucose (74-99) mg/dL POC Glucose (mg/dL) 226 H 148 H (70-110) mg/dL 12/04/23 12/04/23 Range/Units 07:51 11:23 Hct (39.0-53.0) % MCV (80.0-100.0) fL Carbon Dioxide 35 H (22-30) mmol/L BUN 58 H (9-20) mg/dL Creatinine 1.51 H (0.66-1.25) mg/dL Glucose 137 H (74-99) mg/dL POC Glucose (mg/dL) 209 H (70-110) mg/dL
--- NOTE | 2023-12-04 14:29 | P.PN ---
Subjective Progress Note Date: 12/04/23 73-year-old male who was in the emergency department, on December 03, and left AGAINST MEDICAL ADVICE. At that time, he was complaining of shortness of breath, and apparently tested positive for influenza A. The patient has a history of ongoing tobacco use, at 1 pack a day. I see him in the office. I initially saw him for an abnormal CT scan which revealed a 1.9 cm lesion in the right upper lobe. The patient has very severe chronic lung disease, with an FEV1 of 27% of predicted. I sent the patient to Dr. Keating, for consideration of stereotactic body radiotherapy (SBRT), which she had. Currently, the patient is resting comfortably in room 371. He came back into the hospital on the third, to be evaluated. He is currently on 2 L of oxygen. He is not receiving any IV fluids. The patient has made himself a DO NOT RESUSCITATE patient. He came in primarily for shortness of breath, cough, chest congestion, and chest tightness. Current laboratory data includes a white count 9.8, hemoglobin 17.9, hematocrit 55.9, and a platelet count of 157,000. His D-dimer was 3.77. Sodium 136, potassium 4, chloride 100, CO2 28, BUN 57, and creatinine 1.53. The patient's N-terminal proBNP was elevated at 2390. His troponins were mildly elevated at 0.165, 0.150, 0.204, and 0.075. The patient's chest x-ray, showed no acute cardiopulmonary disease disease, other than his underlying COPD. On today's evaluation of 12/04/2023,The patient is being seen for a follow-up.. The patient is still complaining of shortness of breath. He is weak and fatigued. Noted the patient was hospitalized for an acute COPD exacerbation and he also tested positive for influenza A. He is currently on 4% oxygen by nasal cannula. The patient is also on Tamiflu 30 mg twice a day. He is also known to have advanced COPD with an FEV1 of 27% of predicted. The lung mass that was treated with SBRT. No pathologic diagnosis established in terms of his lung cancer. He remains on bronchodilators. He remains on steroids. He also has been onKnown to have coronary artery disease and previous coronary intervention and stenting. He has chronic A-fib and he is on a combination of metoprolol 50 mg twice a day and anticoagulation with Eliquis 5 mg p.o. twice a day. CT angiogram that was done at time of admission was negative for pulmonary embolism. In terms of his labs, the patient has chronic kidney disease with a creatinine of 1.5 and a BUN of 58. Sodium is at 138, white cell count is at 10 with a hemoglobin of 17.5. He is on 40 O2 nasal cannula. No signs of any respiratory distress at this point in time. No nausea. No emesis. No diarrhea. Objective - Vital Signs Vital signs: Vital Signs Temp 97.3 F L 12/04/23 08:00 Pulse 72 12/04/23 08:26 Resp 16 12/04/23 08:00 BP 126/62 12/04/23 08:00 Pulse Ox 92 L 12/04/23 08:01 FiO2 Intake & Output 12/03/23 12/04/23 12/04/23 18:59 06:59 18:59 Intake Total 380 20 180 Balance 380 20 180 Intake: IV 20 20 Invasive Line 2 20 20 Oral 360 180 Other: Voiding Method Toilet Toilet # Voids 1 2 - Exam No acute distress, oriented 3. Currently on 4 L of oxygen. No conversational dyspnea or use of accessory muscles. HEENT examination is grossly unremarkable. Mucous membranes are moist. No oral lesions. Neck supple. Full range of motion. No adenopathy thyromegaly or neck vein distention. Cardiovascular examination reveals regular rhythm rate. S1-S2 normal. No S3 or S4. No discernible murmur noted. Heart sounds are distant. Lungs reveal inspiratory and expiratory rhonchi and wheezes. Breath sounds are equal bilaterally. Breath sounds are diminished throughout. Abdomen soft bowel sounds are heard. No masses or tenderness. Extremities are intact. No cyanosis clubbing or edema. Skin is without rash or lesion. Neurologic examination is brief but nonfocal. - Labs CBC & Chem 7: 12/04/23 07:51 12/04/23 07:51 Labs: Abnormal Lab Results - Last 24 Hours (Table) 12/03/23 12/03/23 12/03/23 Range/Units 09:51 09:51 09:51 Hgb 17.9 H (13.0-17.5) gm/dL Hct 55.9 H (39.0-53.0) % MCV 100.2 H (80.0-100.0) fL Sodium 136 L (137-145) mmol/L Carbon Dioxide (22-30) mmol/L BUN 57 H (9-20) mg/dL Creatinine 1.53 H (0.66-1.25) mg/dL Glucose 128 H (74-99) mg/dL POC Glucose (mg/dL) (70-110) mg/dL Troponin I 0.075 H* (0.000-0.034) ng/mL 12/03/23 12/04/23 12/04/23 Range/Units 20:42 05:59 07:51 Hgb (13.0-17.5) gm/dL Hct 55.6 H (39.0-53.0) % MCV 100.1 H (80.0-100.0) fL Sodium (137-145) mmol/L Carbon Dioxide (22-30) mmol/L BUN (9-20) mg/dL Creatinine (0.66-1.25) mg/dL Glucose (74-99) mg/dL POC Glucose (mg/dL) 226 H 148 H (70-110) mg/dL Troponin I (0.000-0.034) ng/mL 12/04/23 Range/Units 07:51 Hgb (13.0-17.5) gm/dL Hct (39.0-53.0) % MCV (80.0-100.0) fL Sodium (137-145) mmol/L Carbon Dioxide 35 H (22-30) mmol/L BUN 58 H (9-20) mg/dL Creatinine 1.51 H (0.66-1.25) mg/dL Glucose 137 H (74-99) mg/dL POC Glucose (mg/dL) (70-110) mg/dL Troponin I (0.000-0.034) ng/mL Assessment and Plan Plan: Acute hypoxemic respiratory failure, secondary to COPD exacerbation, complicated by influenza A. The patient is currently on a combination of bronchodilators, steroids and the patient is also on Tamiflu. Acute hypoxic respiratory failure and the patient is currently on oxygen at 4 L nasal Acute shortness of breath. Of chronic dyspnea secondary to above Suspected lung cancer, right upper lobe, status post SBRT. The follow-up CAT scan of the chest shows no evidence of any pulmonary embolism. There was a 1.1 cm right upper lobe spiculated lesion. Advanced severe/stage IV COPD, with an FEV1 that is 27% of predicted. Chronic hypoxemic respiratory failure, on home O2. Ongoing tobacco use with nicotine addiction. hyperlipidemia. History of hypertension. Coronary artery disease History of myocardial infarction, status post PCI/stent placement. Troponin leak secondary to above Abdominal aortic aneurysm asymptomatic, measuring 5.1 cm Chronic kidney disease, stage III with a GFR of 45 Mild CHF with ejection fraction of 45-50% along with apical septal hypokinesis Plan: Continue bronchodilators Continue IV Solu-Medrol Continue Tamiflu Monitor renal function Wean down FiO2 as tolerated to maintain saturation above 90% Echo of the heart was repeated and the patient has an ejection fraction of 45 to 50%. There is also moderate LVH. Will continue to follow.
[2023-12-04 14:39] VITALS: BMI 22.7
[2023-12-04 16:45] LABS: Glucose,Whole Blood 172 mg/dL (70-110)
[2023-12-04 20:02] LABS: Glucose,Whole Blood 196 mg/dL (70-110)
[2023-12-05 06:16] LABS: Glucose,Whole Blood 140 mg/dL (70-110)
--- NOTE | 2023-12-05 11:13 | P.PN ---
Subjective Progress Note Date: 12/05/23 73-year-old male who was in the emergency department, on December 03, and left AGAINST MEDICAL ADVICE. At that time, he was complaining of shortness of breath, and apparently tested positive for influenza A. The patient has a history of ongoing tobacco use, at 1 pack a day. I see him in the office. I initially saw him for an abnormal CT scan which revealed a 1.9 cm lesion in the right upper lobe. The patient has very severe chronic lung disease, with an FEV1 of 27% of predicted. I sent the patient to Dr. Keating, for consideration of stereotactic body radiotherapy (SBRT), which she had. Currently, the patient is resting comfortably in room 371. He came back into the hospital on the third, to be evaluated. He is currently on 2 L of oxygen. He is not receiving any IV fluids. The patient has made himself a DO NOT RESUSCITATE patient. He came in primarily for shortness of breath, cough, chest congestion, and chest tightness. Current laboratory data includes a white count 9.8, hemoglobin 17.9, hematocrit 55.9, and a platelet count of 157,000. His D-dimer was 3.77. Sodium 136, potassium 4, chloride 100, CO2 28, BUN 57, and creatinine 1.53. The patient's N-terminal proBNP was elevated at 2390. His troponins were mildly elevated at 0.165, 0.150, 0.204, and 0.075. The patient's chest x-ray, showed no acute cardiopulmonary disease disease, other than his underlying COPD. On today's evaluation of 12/04/2023,The patient is being seen for a follow-up.. The patient is still complaining of shortness of breath. He is weak and fatigued. Noted the patient was hospitalized for an acute COPD exacerbation and he also tested positive for influenza A. He is currently on 4% oxygen by nasal cannula. The patient is also on Tamiflu 30 mg twice a day. He is also known to have advanced COPD with an FEV1 of 27% of predicted. The lung mass that was treated with SBRT. No pathologic diagnosis established in terms of his lung cancer. He remains on bronchodilators. He remains on steroids. He also has been onKnown to have coronary artery disease and previous coronary intervention and stenting. He has chronic A-fib and he is on a combination of metoprolol 50 mg twice a day and anticoagulation with Eliquis 5 mg p.o. twice a day. CT angiogram that was done at time of admission was negative for pulmonary embolism. In terms of his labs, the patient has chronic kidney disease with a creatinine of 1.5 and a BUN of 58. Sodium is at 138, white cell count is at 10 with a hemoglobin of 17.5. He is on 40 O2 nasal cannula. No signs of any respiratory distress at this point in time. No nausea. No emesis. No diarrhea. On today's evaluation 12/05/2023, the patient is still short of breath at rest, occasional cough, no significant sputum production. No nausea vomiting or diarrhea. No altered mentation. He remains on 40 Suboxone by nasal cannula. As mentioned earlier, the patient has advanced COPD with an FEV1 of 27% of predicted and the patient had an acute exacerbation of COPD related to influenza infection. He remains on DuoNeb updrafts. He remains on IV Solu-Medrol. He remains on a combination of Perforomist and Pulmicort nebulized treatments twice a day.Blood sugars are minimally elevated and patient is currently on sliding scale insulin coverage. No other significant events overnight. He remains on anticoagulation with Eliquis 5 mg p.o. twice a day. Objective - Vital Signs Vital signs: Vital Signs Temp 97.7 F 12/04/23 20:00 Pulse 75 12/05/23 08:53 Resp 16 12/05/23 08:00 BP 112/59 12/05/23 08:00 Pulse Ox 93 L 12/05/23 08:44 FiO2 Intake & Output 12/04/23 12/05/23 12/05/23 18:59 06:59 18:59 Intake Total 560 20 Balance 560 20 Weight 65.771 kg Intake: IV 20 20 Invasive Line 2 20 20 Oral 540 Other: Voiding Method Toilet Toilet # Voids 2 1 - Exam No acute distress, oriented 3. Currently on 4 L of oxygen. No conversational dyspnea or use of accessory muscles. HEENT examination is grossly unremarkable. Mucous membranes are moist. No oral lesions. Neck supple. Full range of motion. No adenopathy thyromegaly or neck vein distention. Cardiovascular examination reveals regular rhythm rate. S1-S2 normal. No S3 or S4. No discernible murmur noted. Heart sounds are distant. Lungs reveal inspiratory and expiratory rhonchi and wheezes. Breath sounds are equal bilaterally. Breath sounds are diminished throughout. Abdomen soft bowel sounds are heard. No masses or tenderness. Extremities are intact. No cyanosis clubbing or edema. Skin is without rash or lesion. Neurologic examination is brief but nonfocal. - Labs CBC & Chem 7: 12/04/23 07:51 12/04/23 07:51 Labs: Abnormal Lab Results - Last 24 Hours (Table) 12/04/23 12/04/23 12/04/23 Range/Units 07:51 07:51 11:23 Hct 55.6 H (39.0-53.0) % MCV 100.1 H (80.0-100.0) fL Carbon Dioxide 35 H (22-30) mmol/L BUN 58 H (9-20) mg/dL Creatinine 1.51 H (0.66-1.25) mg/dL Glucose 137 H (74-99) mg/dL POC Glucose (mg/dL) 209 H (70-110) mg/dL 12/04/23 12/04/23 12/05/23 Range/Units 16:43 20:01 06:14 Hct (39.0-53.0) % MCV (80.0-100.0) fL Carbon Dioxide (22-30) mmol/L BUN (9-20) mg/dL Creatinine (0.66-1.25) mg/dL Glucose (74-99) mg/dL POC Glucose (mg/dL) 172 H 196 H 140 H (70-110) mg/dL Assessment and Plan Plan: Acute hypoxemic respiratory failure, secondary to COPD exacerbation, complicated by influenza A. The patient is currently on a combination of bronchodilators, steroids and the patient is also on Tamiflu. Patient remains symptomatic regarding his COPD exacerbation. Acute hypoxic respiratory failure and the patient is currently on oxygen at 4 L nasal Acute shortness of breath. Of chronic dyspnea secondary to above Suspected lung cancer, right upper lobe, status post SBRT. The follow-up CAT scan of the chest shows no evidence of any pulmonary embolism. There was a 1.1 cm right upper lobe spiculated lesion. Advanced severe/stage IV COPD, with an FEV1 that is 27% of predicted. Chronic hypoxemic respiratory failure, on home O2. Ongoing tobacco use with nicotine addiction. hyperlipidemia. History of hypertension. Coronary artery disease History of myocardial infarction, status post PCI/stent placement. Troponin leak secondary to above Abdominal aortic aneurysm asymptomatic, measuring 5.1 cm Chronic kidney disease, stage III with a GFR of 45 Mild CHF with ejection fraction of 45-50% along with apical septal hypokinesis Plan: Limited improvement since yesterday the patient continues to be treated with a combination of bronchodilators and steroids. Continue bronchodilators Continue IV Solu-Medrol Continue Tamiflu Monitor renal function, awaiting labs from today Wean down FiO2 as tolerated to maintain saturation above 90% Echo of the heart was repeated and the patient has an ejection fraction of 45 to 50%. There is also moderate LVH. Will continue to follow.
[2023-12-05 11:28] LABS: Glucose,Whole Blood 188 mg/dL (70-110)
[2023-12-05 12:03] LABS: HCT 52.8 % (39.0-53.0); HGB 16.2 gm/dL (13.0-17.5); Hypochromasia Slight; MCH 30.7 pg (25.0-35.0); MCHC 30.6 g/dL (31.0-37.0); MCV 100.2 fL (80.0-100.0); Mean Platelet Volume 8.4; Platelet Count 175 k/uL (150-450); RBC 5.27 m/uL (4.30-5.90); WBC 7.7 k/uL (3.8-10.6)
--- NOTE | 2023-12-05 12:23 | P.PN ---
Subjective Progress Note Date: 12/05/23 Hospital course: Patient is a very pleasant 73-year-old male with a past medical history of CAD, hypertension, hyperlipidemia, chronic kidney disease stage IIIb, lung cancer, and COPD with continued nicotine dependence. He presented to the emergency department on 12/02/2023 secondary to reports of worsening shortness of breath after initially coming to the emergency department on 11/30/2023 for respiratory distress with oxygen saturations in the 80s requiring 6 L supplemental oxygen and being diagnosed with influenza A, acute kidney injury, and lactic acidosis. However at that time patient left the hospital AGAINST MEDICAL ADVICE. Upon return to the emergency department on 12/02/2023, patient again underwent full evaluation. Upon arrival patient was found to have blood pressure 73/62, heart rate 83, respiratory rate 24, temp 97.7 F, and SpO2 of 91% on supplemental oxygen. EKG was completed showing atrial fibrillation with RVR at 113 bpm. Chest x-ray completed negative for acute cardiopulmonary process. Labs completed and reviewed. CBC showing polycythemia with hemoglobin of 19.2 and hematocrit of 58.5 and thrombocytopenia with platelet count of 122. BMP showing hyponatremia with sodium of 132 and consistent with stage IIIb chronic kidney disease with BUN of 68, creatinine 1.71, and GFR of 38. Liver profile normal findings. Coagulation profile showing elevated D-dimer of 3.77. Troponin elevated at 0.165 and proBNP of 2390. CTA chest completed negative for pulmonary emboli revealing a spiculated right upper lobe pulmonary nodule measuring 1.1 cm. Patient was admitted under our services with consultation to cardiology and pulmonology. Troponins were trended resulting at 0.165, 0.150, 0.204, and 0.075. TSH 0.734. Echocardiogram completed showing a reduced EF of 45 to 50% with apical hypokinesis mild mitral regurgitation and moderate increased left ventricular wall thickness. . Physical exam: Patient seen and evaluated at bedside this morning. He remains on supplemental oxygen 3 L. He reports that he feels unchanged with continued shortness of breath and dyspnea with exertion with coarse dry cough. He denies having any other complaints including headache, lightheadedness, dizziness, chest pain, palpitations, nausea, or vomiting. Patient visiting with friends/family at bedside. He denies any needs, questions, or concerns at this time. Vital signs reviewed and stable. General: Nontoxic, no distress and appears stated age. Derm: Skin warm and dry, normal coloration for ethnicity. Head: Atraumatic, normocephalic and symmetric. Eyes: EOMs intact, no lid lag, and anicteric sclera Mouth: no lip lesions, mucus membranes moist Cardiovascular: regular rate and rhythm with normal S1S2, no murmur, positive posterior tibial pulses bilaterally, and cap refill < 2 seconds. Lungs: Respirations even, regular, and unlabored on supplemental oxygen. Lungs tight, significantly diminished. No rhonchi, no rales, no wheezing, and no accessory muscle usage. Abdominal: soft, nontender to palpation, no guarding, no appreciable organo megaly Ext: ROM intact. No gross muscle atrophy, no edema, no contractures Neuro: Speech clear, face symmetrical and CN II-XII grossly intact with no noted focal neuro deficits Psych: Alert and oriented to person, place, time, and situation. Appropriate and pleasant affect. Assessment and Plan of Care: Acute respiratory failure with hypoxia secondary to COPD exacerbation and influenza A NSTEMI, type II demand ischemia secondary to A-fib RVR and hypoxia Atrial fibrillation with RVR Chronic kidney disease stage IIIb Coronary artery disease Hypertension Hyperlipidemia -Pulmonology following, reviewed documentation in chart stating patient has advanced COPD with an FEV1 of 27% and recommending since limited improvement patient to continue IV Solu-Medrol 60 mg IVP every 6 hours and current plan of care. -Cardiology following, reviewed documentation in chart and clearing patient from cardiac perspective for discharge. -Oxygenation to be administered and titrated as needed to maintain SPO2 equal to or greater than 92% -Telemetry monitoring. -Monitor pulse-oximetry -Patient completed 5-day course of Tamiflu on 12/04/2023 -Duonebs scheduled 4 times daily and as needed for SOB and/or wheezing, Pulmicort 1 puff twice daily, Perforomist inhalation twice daily, and Solu- Medrol 60 mg IVP every 6 hours -Continue daily medication regimen with Eliquis 5 mg twice daily, aspirin 81 mg daily, atorvastatin 40 mg daily, lisinopril/hydrochlorothiazide 10/12.5 mg tablet daily, and metoprolol 50 mg twice daily. -Recommend smoking cessation -Order placed for home O2 eval Data and imaging reviewed: Blood glucose has ranged from 148-226 over the past 24 hours, patient remains on sliding scale insulin with glycemic protocol. -Morning labs were ordered however results are not available at this time. Will follow-up and place additional orders if indicated based upon these findings once results are available. -Vital signs reviewed and stable. Blood pressure 112/59, heart rate 73, respiratory rate 16, and SpO2 of 93% on 4 L. CODE STATUS: DNR/DNI DVT prophylaxis: Eliquis Anticipated discharge date: Clinical course to determine Anticipated discharge place: Clinical course to determine Patient was seen independently by Nurse Pracitioner. This document was prepared using Laser View dictation software. Please allow for errors in crabber, while rare they do occur. Oc Vallejo NP rendered care for this patient independently, reviewed the findings and plan as documented in the note above. I did not physically speak with or examine the patient on this date. Objective - Vital Signs Vital signs: Vital Signs Temp 97.7 F 12/04/23 20:00 Pulse 68 12/05/23 04:00 Resp 18 12/05/23 04:00 BP 128/69 12/05/23 04:00 Pulse Ox 96 12/05/23 04:00 FiO2 Intake & Output 12/04/23 12/05/23 12/05/23 18:59 06:59 18:59 Intake Total 560 20 Balance 560 20 Weight 65.771 kg Intake: IV 20 20 Invasive Line 2 20 20 Oral 540 Other: Voiding Method Toilet Toilet # Voids 2 1 - Labs CBC & Chem 7: 12/06/23 09:19 12/06/23 09:19 Labs: Abnormal Lab Results - Last 24 Hours (Table) 12/04/23 12/04/23 12/04/23 Range/Units 07:51 07:51 11:23 Hct 55.6 H (39.0-53.0) % MCV 100.1 H (80.0-100.0) fL Carbon Dioxide 35 H (22-30) mmol/L BUN 58 H (9-20) mg/dL Creatinine 1.51 H (0.66-1.25) mg/dL Glucose 137 H (74-99) mg/dL POC Glucose (mg/dL) 209 H (70-110) mg/dL 12/04/23 12/04/23 12/05/23 Range/Units 16:43 20:01 06:14 Hct (39.0-53.0) % MCV (80.0-100.0) fL Carbon Dioxide (22-30) mmol/L BUN (9-20) mg/dL Creatinine (0.66-1.25) mg/dL Glucose (74-99) mg/dL POC Glucose (mg/dL) 172 H 196 H 140 H (70-110) mg/dL
[2023-12-05 12:25] LABS: African American GFR (CKD) 66 (>60 ml/min/1.73 sqM); Anion Gap 0 mmol/L; Blood Urea Nitrogen 57 mg/dL (9-20); Calcium 8.1 mg/dL (8.4-10.2); Carbon Dioxide 37 mmol/L (22-30); Chloride 99 mmol/L (98-107); Glucose 175 mg/dL (74-99); Non-African American GFR(CKD) 57 (>60 ml/min/1.73 sqM); Potassium 4.2 mmol/L (3.5-5.1); Sodium 136 mmol/L (137-145)
[2023-12-05 16:28] LABS: Glucose,Whole Blood 219 mg/dL (70-110)
[2023-12-05 20:08] LABS: Glucose,Whole Blood 165 mg/dL (70-110)
[2023-12-06 06:21] LABS: Glucose,Whole Blood 173 mg/dL (70-110)
[2023-12-06 10:00] LABS: HCT 52.9 % (39.0-53.0); Hypochromasia Slight; MCH 32.2 pg (25.0-35.0); MCV 100.5 fL (80.0-100.0); Mean Platelet Volume 8.6; Platelet Count 189 k/uL (150-450); RBC 5.27 m/uL (4.30-5.90); RDW 13.2 % (11.5-15.5); WBC 7.5 k/uL (3.8-10.6)
[2023-12-06 10:13] LABS: ALT 49 U/L (4-49); AST 42 U/L (17-59); African American GFR (CKD) 58 (>60 ml/min/1.73 sqM); Albumin 2.8 g/dL (3.5-5.0); Alkaline Phosphatase 61 U/L (38-126); Anion Gap 3 mmol/L; Blood Urea Nitrogen 59 mg/dL (9-20); Calcium 8.2 mg/dL (8.4-10.2); Carbon Dioxide 35 mmol/L (22-30); Chloride 97 mmol/L (98-107); Glucose 222 mg/dL (74-99); Magnesium 1.9 mg/dL (1.6-2.3); Non-African American GFR(CKD) 51 (>60 ml/min/1.73 sqM); Potassium 4.3 mmol/L (3.5-5.1); Sodium 135 mmol/L (137-145); Total Bilirubin 0.4 mg/dL (0.2-1.3); Total Protein 5.2 g/dL (6.3-8.2)
[2023-12-06 11:23] LABS: Glucose,Whole Blood 245 mg/dL (70-110)
--- NOTE | 2023-12-06 12:48 | P.PN ---
Subjective Progress Note Date: 12/06/23 73-year-old male who was in the emergency department, on December 03, and left AGAINST MEDICAL ADVICE. At that time, he was complaining of shortness of breath, and apparently tested positive for influenza A. The patient has a history of ongoing tobacco use, at 1 pack a day. I see him in the office. I initially saw him for an abnormal CT scan which revealed a 1.9 cm lesion in the right upper lobe. The patient has very severe chronic lung disease, with an FEV1 of 27% of predicted. I sent the patient to Dr. Keating, for consideration of stereotactic body radiotherapy (SBRT), which she had. Currently, the patient is resting comfortably in room 371. He came back into the hospital on the third, to be evaluated. He is currently on 2 L of oxygen. He is not receiving any IV fluids. The patient has made himself a DO NOT RESUSCITATE patient. He came in primarily for shortness of breath, cough, chest congestion, and chest tightness. Current laboratory data includes a white count 9.8, hemoglobin 17.9, hematocrit 55.9, and a platelet count of 157,000. His D-dimer was 3.77. Sodium 136, potassium 4, chloride 100, CO2 28, BUN 57, and creatinine 1.53. The patient's N-terminal proBNP was elevated at 2390. His troponins were mildly elevated at 0.165, 0.150, 0.204, and 0.075. The patient's chest x-ray, showed no acute cardiopulmonary disease disease, other than his underlying COPD. On today's evaluation of 12/04/2023,The patient is being seen for a follow-up.. The patient is still complaining of shortness of breath. He is weak and fatigued. Noted the patient was hospitalized for an acute COPD exacerbation and he also tested positive for influenza A. He is currently on 4% oxygen by nasal cannula. The patient is also on Tamiflu 30 mg twice a day. He is also known to have advanced COPD with an FEV1 of 27% of predicted. The lung mass that was treated with SBRT. No pathologic diagnosis established in terms of his lung cancer. He remains on bronchodilators. He remains on steroids. He also has been onKnown to have coronary artery disease and previous coronary intervention and stenting. He has chronic A-fib and he is on a combination of metoprolol 50 mg twice a day and anticoagulation with Eliquis 5 mg p.o. twice a day. CT angiogram that was done at time of admission was negative for pulmonary embolism. In terms of his labs, the patient has chronic kidney disease with a creatinine of 1.5 and a BUN of 58. Sodium is at 138, white cell count is at 10 with a hemoglobin of 17.5. He is on 40 O2 nasal cannula. No signs of any respiratory distress at this point in time. No nausea. No emesis. No diarrhea. On today's evaluation 12/05/2023, the patient is still short of breath at rest, occasional cough, no significant sputum production. No nausea vomiting or diarrhea. No altered mentation. He remains on 40 Suboxone by nasal cannula. As mentioned earlier, the patient has advanced COPD with an FEV1 of 27% of predicted and the patient had an acute exacerbation of COPD related to influenza infection. He remains on DuoNeb updrafts. He remains on IV Solu-Medrol. He remains on a combination of Perforomist and Pulmicort nebulized treatments twice a day.Blood sugars are minimally elevated and patient is currently on sliding scale insulin coverage. No other significant events overnight. He remains on anticoagulation with Eliquis 5 mg p.o. twice a day. On today's evaluation of 12/06/2023, the patient is feeling slightly improved. No new complaints. Remains endocarditis. Remains on steroids. He feels that he is improving and he can go home. I think it is reasonable. The patient's blood work from today shows WBC, 7.5, hemoglobin of 17 and a platelet count of 189. BUN is 59 with a creatinine of 1.36 and his sodium level is at 135. Note that the patient has chronic kidney disease. No other specific complaints for now. No altered mentation. No signs of any CO2 narcosis. He is resting comfortably in bed. Objective - Vital Signs Vital signs: Vital Signs Temp 97.9 F 12/06/23 08:00 Pulse 76 12/06/23 08:22 Resp 20 12/06/23 08:00 BP 135/67 12/06/23 08:00 Pulse Ox 97 12/06/23 08:00 FiO2 Intake & Output 12/05/23 12/06/23 12/06/23 18:59 06:59 18:59 Intake Total 685 335 Balance 685 335 Intake: Oral 685 335 Other: Voiding Method Toilet Toilet # Voids 1 - Exam No acute distress, oriented 3. Currently on 4 L of oxygen. No conversational dyspnea or use of accessory muscles. HEENT examination is grossly unremarkable. Mucous membranes are moist. No oral lesions. Neck supple. Full range of motion. No adenopathy thyromegaly or neck vein distention. Cardiovascular examination reveals regular rhythm rate. S1-S2 normal. No S3 or S4. No discernible murmur noted. Heart sounds are distant. Lungs reveal inspiratory and expiratory rhonchi and wheezes. Breath sounds are equal bilaterally. Breath sounds are diminished throughout. Abdomen soft bowel sounds are heard. No masses or tenderness. Extremities are intact. No cyanosis clubbing or edema. Skin is without rash or lesion. Neurologic examination is brief but nonfocal. - Labs CBC & Chem 7: 12/06/23 09:19 12/06/23 09:19 Labs: Abnormal Lab Results - Last 24 Hours (Table) 12/05/23 12/05/23 12/05/23 Range/Units 11:26 11:27 11:27 MCV 100.2 H (80.0-100.0) fL MCHC 30.6 L (31.0-37.0) g/dL Sodium 136 L (137-145) mmol/L Chloride (98-107) mmol/L Carbon Dioxide 37 H (22-30) mmol/L BUN 57 H (9-20) mg/dL Creatinine (0.66-1.25) mg/dL Glucose 175 H (74-99) mg/dL POC Glucose (mg/dL) 188 H (70-110) mg/dL Calcium 8.1 L (8.4-10.2) mg/dL Total Protein (6.3-8.2) g/dL Albumin (3.5-5.0) g/dL 12/05/23 12/05/23 12/06/23 Range/Units 16:25 20:07 06:19 MCV (80.0-100.0) fL MCHC (31.0-37.0) g/dL Sodium (137-145) mmol/L Chloride (98-107) mmol/L Carbon Dioxide (22-30) mmol/L BUN (9-20) mg/dL Creatinine (0.66-1.25) mg/dL Glucose (74-99) mg/dL POC Glucose (mg/dL) 219 H 165 H 173 H (70-110) mg/dL Calcium (8.4-10.2) mg/dL Total Protein (6.3-8.2) g/dL Albumin (3.5-5.0) g/dL 12/06/23 12/06/23 Range/Units 09:19 09:19 MCV 100.5 H (80.0-100.0) fL MCHC (31.0-37.0) g/dL Sodium 135 L (137-145) mmol/L Chloride 97 L (98-107) mmol/L Carbon Dioxide 35 H (22-30) mmol/L BUN 59 H (9-20) mg/dL Creatinine 1.36 H (0.66-1.25) mg/dL Glucose 222 H (74-99) mg/dL POC Glucose (mg/dL) (70-110) mg/dL Calcium 8.2 L (8.4-10.2) mg/dL Total Protein 5.2 L (6.3-8.2) g/dL Albumin 2.8 L (3.5-5.0) g/dL Assessment and Plan Plan: Acute hypoxemic respiratory failure, secondary to COPD exacerbation, complicated by influenza A. The patient is currently on a combination of bronchodilators, steroids and the patient is also on Tamiflu. Patient remains symptomatic regarding his COPD exacerbation. Acute hypoxic respiratory failure and the patient is currently on oxygen at 4 L nasal Acute shortness of breath. Of chronic dyspnea secondary to above Suspected lung cancer, right upper lobe, status post SBRT. The follow-up CAT scan of the chest shows no evidence of any pulmonary embolism. There was a 1.1 cm right upper lobe spiculated lesion. Advanced severe/stage IV COPD, with an FEV1 that is 27% of predicted. Chronic hypoxemic respiratory failure, on home O2. Ongoing tobacco use with nicotine addiction. hyperlipidemia. History of hypertension. Coronary artery disease History of myocardial infarction, status post PCI/stent placement. Troponin leak secondary to above Abdominal aortic aneurysm asymptomatic, measuring 5.1 cm Chronic kidney disease, stage III with a GFR of 45 Mild CHF with ejection fraction of 45-50% along with apical septal hypokinesis Plan: Clinically stable and the patient is showing some ongoing slight improvement. The rest of the treatment can be completed on an outpatient basis and the patient may be able to get discharged home to complete a course of Tamiflu a total of 5 days and a prednisone burst taper. The patient has home O2 The patient has a home nebulizer. Renal function is essentially stable at this point in time. Echo of the heart was repeated and the patient has an ejection fraction of 45 to 50%. There is also moderate LVH. Will continue to follow.
--- NOTE | 2023-12-06 13:21 | P.PN ---
Subjective Progress Note Date: 12/06/23 Hospital course: Patient is a very pleasant 73-year-old male with a past medical history of CAD, hypertension, hyperlipidemia, chronic kidney disease stage IIIb, lung cancer, and COPD with continued nicotine dependence. He presented to the emergency department on 12/02/2023 secondary to reports of worsening shortness of breath after initially coming to the emergency department on 11/30/2023 for respiratory distress with oxygen saturations in the 80s requiring 6 L supplemental oxygen and being diagnosed with influenza A, acute kidney injury, and lactic acidosis. However at that time patient left the hospital AGAINST MEDICAL ADVICE. Upon return to the emergency department on 12/02/2023, patient again underwent full evaluation. Upon arrival patient was found to have blood pressure 73/62, heart rate 83, respiratory rate 24, temp 97.7 F, and SpO2 of 91% on supplemental oxygen. EKG was completed showing atrial fibrillation with RVR at 113 bpm. Chest x-ray completed negative for acute cardiopulmonary process. Labs completed and reviewed. CBC showing polycythemia with hemoglobin of 19.2 and hematocrit of 58.5 and thrombocytopenia with platelet count of 122. BMP showing hyponatremia with sodium of 132 and consistent with stage IIIb chronic kidney disease with BUN of 68, creatinine 1.71, and GFR of 38. Liver profile normal findings. Coagulation profile showing elevated D-dimer of 3.77. Troponin elevated at 0.165 and proBNP of 2390. CTA chest completed negative for pulmonary emboli revealing a spiculated right upper lobe pulmonary nodule measuring 1.1 cm. Patient was admitted under our services with consultation to cardiology and pulmonology. Troponins were trended resulting at 0.165, 0.150, 0.204, and 0.075. TSH 0.734. Echocardiogram completed showing a reduced EF of 45 to 50% with apical hypokinesis mild mitral regurgitation and moderate increased left ventricular wall thickness. . Physical exam: Patient seen and evaluated at bedside this morning. He remains on supplemental oxygen 4 L SpO2 of 93%. Patient reports feeling slightly better and would like to go home. Patient will require home oxygen for discharge. web content manager working on obtaining oxygen from [place]. Discussed with behavioral psychologist and tentative plan is for discharge once home oxygen can be obtained. Vital signs reviewed and stable. General: Nontoxic, no distress and appears stated age. Derm: Skin warm and dry, normal coloration for ethnicity. Head: Atraumatic, normocephalic and symmetric. Eyes: EOMs intact, no lid lag, and anicteric sclera Mouth: no lip lesions, mucus membranes moist Cardiovascular: regular rate and rhythm with normal S1S2, no murmur, positive posterior tibial pulses bilaterally, and cap refill < 2 seconds. Lungs: Respirations even, regular, and unlabored on supplemental oxygen. Lungs tight, significantly diminished. No rhonchi, no rales, no wheezing, and no accessory muscle usage. Abdominal: soft, nontender to palpation, no guarding, no appreciable organomegaly Ext: ROM intact. No gross muscle atrophy, no edema, no contractures Neuro: Speech clear, face symmetrical and CN II-XII grossly intact with no noted focal neuro deficits Psych: Alert and oriented to person, place, time, and situation. Appropriate and pleasant affect. Assessment and Plan of Care: Acute respiratory failure with hypoxia secondary to COPD exacerbation and in fluenza A NSTEMI, type II demand ischemia secondary to A-fib RVR and hypoxia Atrial fibrillation with RVR Chronic kidney disease stage IIIb Coronary artery disease Hypertension Hyperlipidemia -Pulmonology following, reviewed documentation in chart stating patient has advanced COPD with an FEV1 of 27% and recommending since limited improvement patient to continue IV Solu-Medrol 60 mg IVP every 6 hours and current plan of care. -Cardiology following, reviewed documentation in chart and clearing patient from cardiac perspective for discharge. -Oxygenation to be administered and titrated as needed to maintain SPO2 equal to or greater than 92% -Telemetry monitoring. -Monitor pulse-oximetry -Patient completed 5-day course of Tamiflu on 12/04/2023 -Duonebs scheduled 4 times daily and as needed for SOB and/or wheezing, Pulmicort 1 puff twice daily, Perforomist inhalation twice daily, and Solu-Medr ol 60 mg IVP every 6 hours -Continue daily medication regimen with Eliquis 5 mg twice daily, aspirin 81 mg daily, atorvastatin 40 mg daily, lisinopril/hydrochlorothiazide 10/12.5 mg tablet daily, and metoprolol 50 mg twice daily. -Recommend smoking cessation -Order placed for home O2 eval Data and imaging reviewed: -Morning labs reviewed. CBC showing mild macrocytosis with MCV of 100.5 otherwise normal findings. BMP showing mild hypercarbia with bicarb of 35 and renal function stable with patient's known stage IIIb CKD with BUN of 59, creatinine 1.36, GFR 51. -Vital signs reviewed and stable. Blood pressure 135/67, heart rate 85, respiratory rate 20, temp 97.9 F, and SpO2 of 97% on 4 L. CODE STATUS: DNR/DNI DVT prophylaxis: Phil Anticipated discharge date: Plan is for discharge once home oxygen can be obtained. Anticipated discharge place: Home Patient was seen independently by Nurse Pracitioner. This document was prepared using [employer] dictation software. Please allow for errors in asset protection manager, while rare they do occur. Oc Vallejo NP rendered care for this patient independently, reviewed the f indings and plan as documented in the note above. I did not physically speak with or examine the patient on this date. Objective - Vital Signs Vital signs: Vital Signs Temp 97.6 F 12/05/23 20:00 Pulse 72 12/06/23 04:00 Resp 18 12/06/23 04:00 BP 122/65 12/06/23 04:00 Pulse Ox 95 12/06/23 04:00 FiO2 Intake & Output 12/05/23 12/06/23 12/06/23 18:59 06:59 18:59 Intake Total 685 Balance 685 Intake: Oral 685 Other: Voiding Method Toilet Toilet # Voids 1 - Labs CBC & Chem 7: 12/06/23 09:19 12/06/23 09:19 Labs: Abnormal Lab Results - Last 24 Hours (Table) 12/05/23 12/05/23 12/05/23 Range/Units 11:26 11:27 11:27 MCV 100.2 H (80.0-100.0) fL MCHC 30.6 L (31.0-37.0) g/dL Sodium 136 L (137-145) mmol/L Carbon Dioxide 37 H (22-30) mmol/L BUN 57 H (9-20) mg/dL Glucose 175 H (74-99) mg/dL POC Glucose (mg/dL) 188 H (70-110) mg/dL Calcium 8.1 L (8.4-10.2) mg/dL 12/05/23 12/05/23 12/06/23 Range/Units 16:25 20:07 06:19 MCV (80.0-100.0) fL MCHC (31.0-37.0) g/dL Sodium (137-145) mmol/L Carbon Dioxide (22-30) mmol/L BUN (9-20) mg/dL Glucose (74-99) mg/dL POC Glucose (mg/dL) 219 H 165 H 173 H (70-110) mg/dL Calcium (8.4-10.2) mg/dL
[2023-12-06 16:27] LABS: Glucose,Whole Blood 195 mg/dL (70-110)
[2023-12-06 16:41] VITALS: TEMP 98.1
[2023-12-06 20:21] LABS: Glucose,Whole Blood 145 mg/dL (70-110)
[2023-12-07 03:26] VITALS: RESP 16
[2023-12-07 05:18] VITALS: BP 126/73; PULSE 66
[2023-12-07 06:12] LABS: Glucose,Whole Blood 145 mg/dL (70-110)
--- NOTE | 2023-12-07 09:25 | P.DS ---
Providers Date of admission: 12/02/23 08:19 Expected date of discharge: 12/07/23 Attending physician: Batsheva Almendarez MD Consults: 12/02/23 11:33 Consult Physician Routine Consulting Provider: Mychal Monteiro Consult Reason/Comments: COPD Flu Do you want consulting provider notified?: Yes Primary care physician: [facility] Hospital Course: Discharge Diagnosis: Acute respiratory failure with hypoxia secondary to COPD exacerbation and influenza A NSTEMI, type II demand ischemia secondary to A-fib RVR and hypoxia Atrial fibrillation with RVR Chronic kidney disease stage IIIb Coronary artery disease Hypertension Hyperlipidemia Continue dependence, recommend smoking cessation. Lung cancer Hospital Course: Patient is a very pleasant 73-year-old male with a past medical history of CAD, hypertension, hyperlipidemia, chronic kidney disease stage IIIb, lung cancer, and COPD with continued nicotine dependence. He presented to the emergency department on 12/02/2023 secondary to reports of worsening shortness of breath after initially coming to the emergency department on 11/30/2023 for respiratory distress with oxygen saturations in the 80s requiring 6 L supplemental oxygen and being diagnosed with influenza A, acute kidney injury, and lactic acidosis. However at that time patient left the hospital AGAINST MEDICAL ADVICE. Upon return to the emergency department on 12/02/2023, patient again underwent full evaluation. Upon arrival patient was found to have blood pressure 73/62, heart rate 83, respiratory rate 24, temp 97.7 F, and SpO2 of 91% on supplemental oxygen. EKG was completed showing atrial fibrillation with RVR at 113 bpm. Chest x-ray completed negative for acute cardiopulmonary process. Labs completed and reviewed. CBC showing polycythemia with hemoglobin of 19.2 and hematocrit of 58.5 and thrombocytopenia with platelet count of 122. BMP showing hyponatremia with sodium of 132 and consistent with stage IIIb chronic kidney disease with BUN of 68, creatinine 1.71, and GFR of 38. Liver profile normal findings. Coagulation profile showing elevated D-dimer of 3.77. Troponin elevated at 0.165 and proBNP of 2390. CTA chest completed negative for pulmonary emboli revealing a spiculated right upper lobe pulmonary nodule measuring 1.1 cm. Patient was admitted under our services with consultation to cardiology and pulmonology. Troponins were trended resulting at 0.165, 0.150, 0.204, and 0.075. TSH 0.734. Echocardiogram completed showing a reduced EF of 45 to 50% with apical hypokinesis mild mitral regurgitation and moderate increased left ventricular wall thickness. Patient underwent a 5-day hospital ization and received treatment with IV steroids, antiretroviral with Tamiflu, and scheduled and as needed breathing treatments. Once treatment completed and patient's condition improving, home oxygen evaluation was completed. Patient desaturates to 85% on room air at rest and requiring 4 L continuous supplemental oxygen secondary to his advanced/end-stage COPD and lung cancer. Home oxygen was delivered to room. Arrangements were made for patient's home nebulizer machine and case management provided approval for [employer]. Discharge instructions were reviewed with patient and patient's brother at bedside and both verbalized understanding. Respiratory therapist also brought to room to explain to patient how to connect home oxygen to home CPAP for sleeping. Patient provided with instructions on new home medications. Patient is medically stable for discharge at this time. Patient will need to follow-up outpatient with PCP in 1 to 2 days, mail list librarian in 1 week, and avionics repair technician in 1 week. Physical exam: Vital signs reviewed and stable. General: Nontoxic, no distress and appears stated age. Derm: Skin warm and dry, normal coloration for ethnicity. Head: Atraumatic, normocephalic and symmetric. Eyes: EOMs intact, no lid lag, and anicteric sclera Mouth: no lip lesions, mucus membranes moist Cardiovascular: regular rate and rhythm with normal S1S2, no murmur, positive posterior tibial pulses bilaterally, and cap refill < 2 seconds. Lungs: Respirations even, regular, and unlabored on supplemental oxygen. Lungs diminished. No rhonchi, no rales, no wheezing, and no accessory muscle usage. Abdominal: soft, nontender to palpation, no guarding, no appreciable organomegaly Ext: ROM intact. No gross muscle atrophy, no edema, no contractures Neuro: Speech clear, face symmetrical and CN II-XII grossly intact with no noted focal neuro deficits Psych: Alert and oriented to person, place, time, and situation. Appropriate and pleasant affect. A total of 39 minutes of time were spent preparing this complex discharge summary. Pt was discharged on 12/07/2023 at 9:21 AM. Patient was seen independently by Nurse Practitioner. This document was prepared using [employer] dictation software. Please allow for errors in heat treating furnace tender while rare they do occur. Oc Genevieve, INFORMATION CONSULTANT rendered care for this patient independently, reviewed the findings and plan as documented in the note above. I did not physically speak with or examine the patient on this date. Patient Condition at Discharge: Stable Plan - Discharge Summary Discharge Rx Participant: No New Discharge Prescriptions: New Ipratropium-Albuterol Nebulize [Duoneb 0.5 mg-3 mg/3 ml Soln] 3 ml INHALATION RT-QID 30 Days #120 each Apixaban [Eliquis] 5 mg PO BID 30 Days #60 tab predniSONE See Taper PO DIRECTED 12 Days #30 tab Continue Metoprolol Tartrate [Lopressor] 50 mg PO BID Tiotropium Br/Olodaterol HCl [Stiolto Respimat Inhal [place]] 2 puff INHALATION RT-DAILY Lisinopril-Hctz 10-12.5 mg [Zestoretic 10-12.5] 1 tab PO DAILY Rosuvastatin [Crestor] 20 mg PO DAILY Aspirin EC [Ecotrin Low Dose] 81 mg PO DAILY Discontinued Oseltamivir [Tamiflu] 75 mg PO Q12HR 5 Days #10 cap Discharge Medication List Metoprolol Tartrate [Lopressor] 50 mg PO BID 10/19/20 [History] Aspirin EC [Ecotrin Low Dose] 81 mg PO DAILY 11/30/23 [History] Lisinopril-Hctz 10-12.5 mg [Zestoretic 10-12.5] 1 tab PO DAILY 11/30/23 [History] Rosuvastatin [Crestor] 20 mg PO DAILY 11/30/23 [History] Tiotropium Br/Olodaterol HCl [Stiolto Respimat Inhal [place]] 2 puff INHALATION RT-DAILY 11/30/23 [History] Apixaban [Eliquis] 5 mg PO BID 30 Days #60 tab 12/06/23 [Rx] Ipratropium-Albuterol Nebulize [Duoneb 0.5 mg-3 mg/3 ml Soln] 3 ml INHALATION RT-QID 30 Days #120 each 12/06/23 [Rx] predniSONE See Taper PO DIRECTED 12 Days #30 tab 12/06/23 [Rx] Follow up Appointment(s)/Referral(s): Sy Rayo DO [STAFF PHYSICIAN] - 1 Week [facility] [NON-STAFF] - Andie Weston MD [STAFF PHYSICIAN] - 1 Week [facility] [Primary Care Provider] - 1-2 days Patient Instructions/Handouts: A-fib (Atrial Fibrillation) (DC), COPD (Chronic Obstructive Pulmonary Disease) (DC), Chronic Lung Disease and Infection Prevention (DC) Activity/Diet/Wound Care/Special Instructions: Activity: As tolerated. Take breaks as needed. Diet: Heart healthy and carb consistent diet. Avoid salts, or foods with hidden salts such as canned or boxed foods and frozen dinners. Extra salt makes your heart work harder and traps the fluid in your body for longer. Special Instructions: Take all of your medications as directed and remember to keep all of your doctor's appointments and follow-up as needed. You are being discharged home on home oxygen, it is important to wear this at all times including while showering and sleeping. You are instructed by respiratory therapist at bedside on how to use oxygen with your CPAP machine nightly. Thank you for allowing us to participate in your care, it was truly a pleasure having you for our patient!!! Discharge Disposition: HOME SELF-CARE
== END 2023-12-07 09:26 | disposition home or self-care (01) | DRG 280 ==
LOC: EC 04:34 → 3SCARD 08:19
PROVIDERS: ADMIT Internal Medicine; ATTEND Internal Medicine
PROC: 3E033RZ Introduction of Antiarrhythmic into Peripheral Vein, Percutaneous Approach (ICD-10-PCS; principal; 2023-12-02)
DX: I48.20 Chronic atrial fibrillation, unspecified (principal); I21.A1 Myocardial infarction type 2; J96.21 Acute and chronic respiratory failure with hypoxia; J44.1 Chronic obstructive pulmonary disease with (acute) exacerbation; E87.1 Hypo-osmolality and hyponatremia; N17.9 Acute kidney failure, unspecified; C34.11 Malignant neoplasm of upper lobe, right bronchus or lung; I13.0 Hypertensive heart and chronic kidney disease with heart failure and stage 1 through stage 4 chronic kidney disease, or unspecified chronic kidney disease; I50.30 Unspecified diastolic (congestive) heart failure; J10.1 Influenza due to other identified influenza virus with other respiratory manifestations; D75.1 Secondary polycythemia; D69.6 Thrombocytopenia, unspecified; N18.32 Chronic kidney disease, stage 3b; E78.5 Hyperlipidemia, unspecified; I65.29 Occlusion and stenosis of unspecified carotid artery; I49.3 Ventricular premature depolarization; I48.0 Paroxysmal atrial fibrillation; I71.40 Abdominal aortic aneurysm, without rupture, unspecified; I25.10 Atherosclerotic heart disease of native coronary artery without angina pectoris; F17.210 Nicotine dependence, cigarettes, uncomplicated; Z66 Do not resuscitate; I25.2 Old myocardial infarction; Z99.81 Dependence on supplemental oxygen; Z95.5 Presence of coronary angioplasty implant and graft; Z95.1 Presence of aortocoronary bypass graft; Z86.73 Personal history of transient ischemic attack (TIA), and cerebral infarction without residual deficits; Z79.899 Other long term (current) drug therapy; Z79.82 Long term (current) use of aspirin; Z79.01 Long term (current) use of anticoagulants; Z92.3 Personal history of irradiation; Z71.6 Tobacco abuse counseling
CPT/HCPCS: 36415; 71046; 71275; 80048; 80053; 83605; 83735; 83880; 84443; 84484; 85025; 85027; 85379; 85610; 85730; 93005; 93306; 94640; 94760; 96372; 96374; 96376; 99285

== ENCOUNTER 2023-12-07 14:34 | Inpatient (IN) | payer OTHER, MEDICARE, BC ==
--- NOTE | 2023-12-07 14:52 | ED ---
SOB HPI - General Chief Complaint: Shortness of Breath Stated Complaint: DIFFICULTY BREATHING Time Seen by Provider: 12/07/23 14:45 Source: EMS, RN notes reviewed, old records reviewed Mode of arrival: EMS Limitations: no limitations - History of Present Illness Initial Comments: This is a 73-year-old male to the ER for evaluation today. Patient with today for evaluation of severe shortness of breath. Severe dyspnea. Patient is not been feeling well a for a few hours and this occurred after discharge from the hospital today. w. Severe shortness of breath patient's brother left to go run severe and came home and patient was in significant respiratory distress MD Complaint: shortness of breath, cough, "asthma attack", anxiety -: hour(s) Radiation: back, other Severity scale (1-10): 10 Quality: dull Consistency: constant Improves With: nothing Known History Of: COPD, asthma Context: recent URI, anxiety, recent illness Associated Symptoms: denies other symptoms Treatments Prior to Arrival: none - Related Data Home Medications Medication Instructions Recorded Confirmed Metoprolol Tartrate [Lopressor] 50 mg PO BID 10/19/20 12/07/23 Aspirin EC [Ecotrin Low Dose] 81 mg PO DAILY 11/30/23 12/07/23 Lisinopril-Hctz 10-12.5 mg 1 tab PO DAILY 11/30/23 12/07/23 [Zestoretic 10-12.5] Rosuvastatin [Crestor] 20 mg PO DAILY 11/30/23 12/07/23 Tiotropium Br/Olodaterol HCl 2 puff INHALATION RT-DAILY 11/30/23 12/07/23 [Stiolto Respimat Inhal [place]] Previous Rx's Medication Instructions Recorded Apixaban [Eliquis] 5 mg PO BID 30 Days #60 tab 12/06/23 Fluticasone Propionate 1 puff INHALATION BID #12 gm 12/13/23 [Fluticasone Propionate Hfa 220 MCG (Inhaler)] Ipratropium-Albuterol Nebulize 3 ml INHALATION RT-QID PRN 30 Days 12/13/23 [Duoneb 0.5 mg-3 mg/3 ml Soln] #120 each Montelukast [Singulair] 10 mg PO HS #30 tab 12/13/23 predniSONE See Taper PO DIRECTED #30 tab 12/13/23 Allergies Allergy/AdvReac Type Severity Reaction Status Date / Time No Known Allergies Allergy Verified 12/02/23 11:25 Review of Systems ROS Statement: Those systems with pertinent positive or pertinent negative responses have been documented in the HPI. ROS Other: All systems not noted in ROS Statement are negative. Past Medical History Past Medical History: Cancer, COPD, Hyperlipidemia, Hypertension, Myocardial Infarction (NE) Last Myocardial Infarction Date:: Unknown History of Any Multi-Drug Resistant Organisms: None Reported Past Surgical History: Heart Catheterization With Stent Additional Past Surgical History / Comment(s): stent placement within groin Past Anesthesia/Blood Transfusion Reactions: No Reported Reaction Date of Last Stent Placement:: Unknown Past Psychological History: No Psychological Hx Reported Smoking Status: Current every day smoker Past Alcohol Use History: Rare Past Drug Use History: None Reported General Exam Limitations: no limitations, altered mental status General appearance: alert, in no apparent distress, anxious, in distress Head exam: Present: atraumatic, normocephalic, normal inspection Eye exam: Present: normal appearance, PERRL, EOMI. Absent: scleral icterus, conjunctival injection, periorbital swelling ENT exam: Present: normal exam, mucous membranes moist Neck exam: Present: normal inspection. Absent: tenderness, meningismus, lymphadenopathy Respiratory exam: Present: normal lung sounds bilaterally, respiratory distress, wheezes, accessory muscle use, decreased breath sounds, prolonged expiratory. Absent: rales, rhonchi, stridor Cardiovascular Exam: Present: regular rate, normal rhythm, normal heart sounds. Absent: systolic murmur, diastolic murmur, rubs, gallop, clicks GI/Abdominal exam: Present: soft, normal bowel sounds. Absent: distended, tenderness, guarding, rebound, rigid Extremities exam: Present: normal inspection, full ROM, normal capillary refill. Absent: tenderness, pedal edema, joint swelling, calf tenderness Back exam: Present: normal inspection Neurological exam: Present: alert, oriented X3, CN II-XII intact Psychiatric exam: Present: normal affect, normal mood Skin exam: Present: warm, dry, intact, normal color. Absent: rash Course Vital Signs 12/07/23 12/07/23 12/07/23 14:37 14:42 14:43 Temperature 98.1 F Pulse Rate 83 Respiratory 18 22 Rate Blood Pressure 120/72 O2 Sat by Pulse 83 L 93 L Oximetry 12/07/23 12/07/23 12/07/23 15:00 15:25 15:42 Temperature Pulse Rate 95 78 76 Respiratory 22 Rate Blood Pressure 120/72 O2 Sat by Pulse 95 Oximetry 12/07/23 12/07/23 12/07/23 16:00 18:15 18:24 Temperature Pulse Rate 97 85 88 Respiratory 22 Rate Blood Pressure 120/72 O2 Sat by Pulse 95 95 Oximetry 12/07/23 12/07/23 12/07/23 19:00 20:03 20:17 Temperature Pulse Rate 84 78 80 Respiratory 18 Rate Blood Pressure 120/72 O2 Sat by Pulse 95 Oximetry - Reevaluation(s) Reevaluation #1: 12/07/23 20:17 Medical records reviewed Reevaluation #2: 12/07/23 20:17 Patient is showing no improvement here in the ER Reevaluation #3: 12/07/23 20:17 Patient informed of results and questions answered Reevaluation #4: Was pt. sent in by a medical professional or institution (, PA, HUMAN RESOURCES TEAM MEMBER, urgent care, hospital, or [place] health care facility...) When possible be specific @ -no Did you speak to anyone other than the patient for history (EMS, parent, family, police, friend...)? What history was obtained from this source @ -no Did you review nursing and triage notes (agree or disagree)? Why? @ -agree Are old charts reviewed (outside hosp., previous admission, EMS record, old EKG, old radiological studies, urgent care reports/EKG's, [place] health care facility records)? Report findings @ -yes Differential Diagnosis (chest pain, altered mental status, abdominal pain women, abdominal pain men, vaginal bleeding, weakness, fever, dyspnea, syncope, head ache, dizziness, GI bleed, back pain, seizure, CVA, palpatations, mental health, musculoskeletal)? @ -prior EKG interpreted by me (3pts min.). @ -yes X-rays interpreted by me (1pt min.). @ -yes negative for acute disease CT interpreted by me (1pt min.). @ -no U/S interpreted by me (1pt. min.). @ -no What testing was considered but not performed or refused? (CT, X-rays, U/S, labs)? Why? @ -none What meds were considered but not given or refused? Why? @ -none Did you discuss the management of the patient with other professionals (professionals i.e. , PA, HUMAN RESOURCES TEAM MEMBER, lab, RT, psych nurse, long term care social worker, chefs, teacher, delinquency prevention officer, case briefer)? Give summary @ -no Was smoking cessation discussed for >3mins.? @ -no Was critical care preformed (if so, how long)? @ -no Were there social determinants of health that impacted care today? How? (Homelessness, low income, unemployed, alcoholism, drug addiction, transportation, low edu. Level, literacy, decrease access to med. care, assisted, rehab)? @ -none Was there de-escalation of care discussed even if they declined (Discuss DNR or withdrawal of care, Hospice)? DNR status @ -no What co-morbidities impacted this encounter? (DM, HTN, Smoking, COPD, CAD, Cancer, CVA, ARF, Chemo, Hep., AIDS, mental health diagnosis, sleep apnea, mor bid obesity)? @ -none Was patient admitted / discharged? Hospital course, mention meds given and ro port lions, prescriptions, significant lab abnormalities, going to OR and other pertinent info. @ - 73 male to the ER for evaluation today. Patient presents today for evaluation in regards to severe shortness of breath patient was just discharged from the hospital and was found by his father to be in significant respiratory distress prior to arrival in our emergency department. Patient reports he got in the hospital for continued breathing treatments and smoking cessation Admitted Undiagnosed new problem with uncertain prognosis? @ -no Drug Therapy requiring intensive monitoring for toxicity (Heparin, Nitro, Insulin, Cardizem)? @ -no Were any procedures done? @ -no Diagnosis/symptom? @ -Significant COPD exacerbation Acute, or Chronic, or Acute on Chronic? @ -Acute Uncomplicated (without systemic symptoms) or Complicated (systemic symptoms)? @ -Complicated Side effects of treatment? @ -no Exacerbation, Progression, or Severe Exacerbation? @ -exacerbation Poses a threat to life or bodily function? How? (Chest pain, [place], NE, pneumonia, PE, COPD, DKA, ARF, appy, cholecystitis, CVA, Diverticulitis, Homicidal, Suicidal, threat to staff... and all critical care pts) @ -yes severe respiratory distress Reevaluation #5: 12/07/23 20:17 Differential Dyspnea: Coronary syndrome, arrhythmia, tamponade, asthma, COPD, pulmonary embolism, pneumonia, pneumothorax, pulmonary effusion, anaphylaxis, diabetic ketoacidosis, flailed chest, pulmonary contusion, diaphragmatic rupture, anemia, neuromuscular, this is not meant to be an all-inclusive list. - Consultations Consultation #1: Spoke with sound who agrees to admit this patient Medical Decision Making - Medical Decision Making 73 male to the ER for evaluation today. Patient presents today for evaluation in regards to severe shortness of breath patient was just discharged from the hospital and was found by his father to be in significant respiratory distress prior to arrival in our emergency department. Patient reports he got in the hospital for continued breathing treatments and smoking cessation - Lab Data Result diagrams: 12/11/23 09:18 12/11/23 11:25 Lab Results 12/07/23 12/07/23 12/07/23 Range/Units 15:03 15:03 15:03 WBC 10.9 H (3.8-10.6) k/uL RBC 5.33 (4.30-5.90) m/uL Hgb 16.3 (13.0-17.5) gm/dL Hct 53.8 H (39.0-53.0) % MCV 100.9 H (80.0-100.0) fL MCH 30.6 (25.0-35.0) pg MCHC 30.3 L (31.0-37.0) g/dL RDW 12.8 (11.5-15.5) % Plt Count 201 (150-450) k/uL MPV 8.0 Neutrophils % 92 % Lymphocytes % 2 % Monocytes % 4 % Eosinophils % 1 % Basophils % 0 % Neutrophils # 10.0 H (1.3-7.7) k/uL Lymphocytes # 0.3 L (1.0-4.8) k/uL Monocytes # 0.5 (0-1.0) k/uL Eosinophils # 0.1 (0-0.7) k/uL Basophils # 0.0 (0-0.2) k/uL Hypochromasia Slight PT 11.0 (10.0-12.5) sec INR 1.0 (<1.2) APTT 20.8 L (22.0-30.0) sec Sodium 137 (137-145) mmol/L Potassium 3.3 L (3.5-5.1) mmol/L Chloride 103 (98-107) mmol/L Carbon Dioxide 32 H (22-30) mmol/L Anion Gap 2 mmol/L BUN 58 H (9-20) mg/dL Creatinine 1.04 (0.66-1.25) mg/dL Est GFR (CKD-EPI)AfAm 81 (>60 ml/min/1.73 sqM) Est GFR (CKD-EPI)NonAf 70 (>60 ml/min/1.73 sqM) Glucose 320 H (74-99) mg/dL Calcium 6.6 L (8.4-10.2) mg/dL Magnesium 1.5 L (1.6-2.3) mg/dL Total Bilirubin 0.4 (0.2-1.3) mg/dL AST 41 (17-59) U/L ALT 52 H (4-49) U/L Alkaline Phosphatase 51 (38-126) U/L Troponin I (0.000-0.034) ng/mL NT-Pro-B Natriuret Pep 2920 pg/mL Total Protein 4.4 L (6.3-8.2) g/dL Albumin 2.3 L (3.5-5.0) g/dL 12/07/23 Range/Units 15:03 WBC (3.8-10.6) k/uL RBC (4.30-5.90) m/uL Hgb (13.0-17.5) gm/dL Hct (39.0-53.0) % MCV (80.0-100.0) fL MCH (25.0-35.0) pg MCHC (31.0-37.0) g/dL RDW (11.5-15.5) % Plt Count (150-450) k/uL MPV Neutrophils % % Lymphocytes % % Monocytes % % Eosinophils % % Basophils % % Neutrophils # (1.3-7.7) k/uL Lymphocytes # (1.0-4.8) k/uL Monocytes # (0-1.0) k/uL Eosinophils # (0-0.7) k/uL Basophils # (0-0.2) k/uL Hypochromasia PT (10.0-12.5) sec INR (<1.2) APTT (22.0-30.0) sec Sodium (137-145) mmol/L Potassium (3.5-5.1) mmol/L Chloride (98-107) mmol/L Carbon Dioxide (22-30) mmol/L Anion Gap mmol/L BUN (9-20) mg/dL Creatinine (0.66-1.25) mg/dL Est GFR (CKD-EPI)AfAm (>60 ml/min/1.73 sqM) Est GFR (CKD-EPI)NonAf (>60 ml/min/1.73 sqM) Glucose (74-99) mg/dL Calcium (8.4-10.2) mg/dL Magnesium (1.6-2.3) mg/dL Total Bilirubin (0.2-1.3) mg/dL AST (17-59) U/L ALT (4-49) U/L Alkaline Phosphatase (38-126) U/L Troponin I 0.023 (0.000-0.034) ng/mL NT-Pro-B Natriuret Pep pg/mL Total Protein (6.3-8.2) g/dL Albumin (3.5-5.0) g/dL - EKG Data -: EKG Interpreted by Me (EKG is sinus 75 NH 153 QRS 83 QTc 404) - Radiology Data Radiology results: report reviewed (Chest x-ray is negative for acute disease), image reviewed Critical Care Time Critical Care Time: Yes Total Critical Care Time: 31 Disposition Clinical Impression: Hypoxic respiratory failure, Acute exacerbation of chronic obstructive pulmonary disease, Asthma with acute exacerbation, Acute respiratory failure, A- fib Disposition: ADMITTED IP TO THIS HOSP Condition: Stable Is patient prescribed a controlled substance at d/c from ED?: No Time of Disposition: 19:10
[2023-12-07] MEDS: SODIUM CHLORIDE 0.9% 1,000 ML IV STA ×2 (14:58)
[2023-12-07] MEDS: methylPREDNISolone SOD SUCCI 125 MG/2 ML VIAL IV STA (14:59)
[2023-12-07 15:21] LABS: Basophils % (A) 0 %; Eosinophils # (A) 0.1 k/uL (0-0.7); Eosinophils % (A) 1 %; HCT 53.8 % (39.0-53.0); HGB 16.3 gm/dL (13.0-17.5); Hypochromasia Slight; Lymphocytes # (A) 0.3 k/uL (1.0-4.8); Lymphocytes % (A) 2 %; MCH 30.6 pg (25.0-35.0); MCHC 30.3 g/dL (31.0-37.0); MCV 100.9 fL (80.0-100.0); Monocytes # (A) 0.5 k/uL (0-1.0); Monocytes % (A) 4 %; Neutrophils % (A) 92 %; Platelet Count 201 k/uL (150-450); RBC 5.33 m/uL (4.30-5.90); RDW 12.8 % (11.5-15.5); WBC 10.9 k/uL (3.8-10.6)
[2023-12-07] MEDS: IPRATROPIUM 0.5 MG/2.5 ML NEBU INHALATION STA (15:21)
[2023-12-07] MEDS: ALBUTEROL NEBULIZED 2.5 MG/3 ML INHALATION STA (15:21)
[2023-12-07] MEDS: IPRATROPIUM-ALBUTEROL 3 ML NEB INHALATION STA ×2 (15:25→18:15)
[2023-12-07 15:40] LABS: ALT 52 U/L (4-49); AST 41 U/L (17-59); African American GFR (CKD) 81 (>60 ml/min/1.73 sqM); Albumin 2.3 g/dL (3.5-5.0); Alkaline Phosphatase 51 U/L (38-126); Anion Gap 2 mmol/L; Blood Urea Nitrogen 58 mg/dL (9-20); Calcium 6.6 mg/dL (8.4-10.2); Carbon Dioxide 32 mmol/L (22-30); Chloride 103 mmol/L (98-107); Glucose 320 mg/dL (74-99); Magnesium 1.5 mg/dL (1.6-2.3); Non-African American GFR(CKD) 70 (>60 ml/min/1.73 sqM); Potassium 3.3 mmol/L (3.5-5.1); Sodium 137 mmol/L (137-145); Total Bilirubin 0.4 mg/dL (0.2-1.3); Total Protein 4.4 g/dL (6.3-8.2)
[2023-12-07 15:46] LABS: Partial Thromboplastin Time 20.8 sec (22.0-30.0)
--- NOTE | 2023-12-07 15:46 | XR ---
EXAMINATION TYPE: XR chest 1V portable DATE OF EXAM: 12/07/2023 3:19 PM CLINICAL INDICATION:Male, 73 years old with history of sob; COMPARISON: 12/02/2023 CT and radiograph TECHNIQUE: XR chest 1V portable Frontal view of the chest. FINDINGS: Lungs/Pleura: There is no evidence of pleural effusion, focal consolidation, or pneumothorax. Pulmonary vascularity: Unremarkable. Heart/mediastinum: Cardiomediastinal silhouette is unremarkable. Musculoskeletal: No acute osseous pathology. IMPRESSION: No significant change from prior, No acute cardiopulmonary disease/process.
[2023-12-07 15:48] LABS: NT-Pro-B-Type Natriuretic Pept 2920 pg/mL
[2023-12-07] MEDS ORDERED: NALOXONE 0.4 MG/ML 1 ML VIAL IVP PRN (17:29)
[2023-12-07] MEDS: methylPREDNISolone SOD SUCCI 125 MG/2 ML VIAL IV SCH (18:05)
[2023-12-07] MEDS: MAGNESIUM OXIDE 400 MG TAB PO STA (18:05)
[2023-12-07] MEDS: POTASSIUM BICARBONATE/CIT AC 20 MEQ TABLET.EFF PO ONE (18:06)
[2023-12-07] MEDS: ALBUTEROL NEBULIZED 2.5 MG/3 ML INHALATION SCH (20:03)
[2023-12-08] MEDS ORDERED: IPRATROPIUM-ALBUTEROL 3 ML NEB INHALATION PRN (00:22)
--- NOTE | 2023-12-08 00:28 | P.CNPUL ---
History of Present Illness Consult date: 12/08/23 Requesting physician: Tristen Tang Reason for consult: COPD Chief complaint: Shortness of breath History of present illness: I am seeing this patient in consultation today December 08, 2023, patient was just discharged home yesterday for acute COPD exacerbation complicated by influenza A infection. I believe he has completed a course of Tamiflu. Patient is a 73-year-old white male with past medical history significant for severe COPD with an FEV1 27% of predicted, suspicious right upper lobe pulmonary nodule status post SBRT, chronic A-fib, coronary artery disease with previous PC I/stenting, chronic kidney disease, and chronic ongoing tobacco dependence. He sees Dr. Monteiro in the office for his pulmonary needs. As stated above, patient was just discharged yesterday on December 07 after a hospitalization for acute COPD exacerbation complicated by influenza A infection. He has completed course of Tamiflu. He was discharged on prednisone taper and home O2. Less than 24 h ours later the patient was severely short of breath, especially with any exertion, and returned to the emergency room. He continues to have an intermittent cough with johansen-white sputum production. He denies any fevers, hemoptysis. Endorses some pleuritic like chest pain only on coughing. Chest x- ray on arrival did not show any focal consolidations or evidence of pneumonia. There is blunting of the left costophrenic angle, and possible small pleural effusion. Cardiac silhouette is stable, no significant pulmonary vascular congestion. CBC on arrival: WBC count of 10.9, hemoglobin 16.3, hematocrit 53.8, platelets 201. BMP on arrival: Sodium 137, potassium 3.3, chloride 103, serum bicarb 32, BUN 58, creatinine 1.04, glucose 320. NT proBNP 2920. Troponin 0.023. He is currently lying in bed, on a 4 L nasal cannula, in no acute distress. SpO2 is 95%. vital signs are stable. Review of Systems REVIEW OF SYSTEMS: CONSTITUTIONAL: Denies any recent significant weight loss or weight gain. EYES: Denies change in vision. EARS, NOSE, MOUTH, THROAT: Denies headaches, denies sore throat. CARDIOVASCULAR: Denies radiating chest pain, palpitations or syncopal episodes. RESPIRATORY: see HPI. GASTROINTESTINAL: Denies change in appetite, abdominal pain, nausea and vomiting, or diarrhea GENITOURINARY: Denies hematuria, denies infections. MUSKULOSKELETAL: Denies pain, denies swelling. INTEGUMENTARY: Denies rash, denies eczema. NEUROLOGICAL: Denies recent memory loss, no recent seizure activity. PSYCHIATRIC: Denies anxiety, denies depression. 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 Right leg stent. Past Anesthesia/Blood Transfusion Reactions: No Reported Reaction Date of Last Stent Placement:: 09/09/2010 Smoking Status: Current every day smoker Medications and Allergies Home Medications Medication Instructions Recorded Confirmed Type Metoprolol Tartrate [Lopressor] 50 mg PO BID 10/19/20 12/07/23 History Aspirin EC [Ecotrin Low Dose] 81 mg PO DAILY 11/30/23 12/07/23 History Lisinopril-Hctz 10-12.5 mg 1 tab PO DAILY 11/30/23 12/07/23 History [Zestoretic 10-12.5] Rosuvastatin [Crestor] 20 mg PO DAILY 11/30/23 12/07/23 History Tiotropium Br/Olodaterol HCl 2 puff INHALATION RT-DAILY 11/30/23 12/07/23 History [Stiolto Respimat Inhal [place]] Apixaban [Eliquis] 5 mg PO BID 30 Days #60 tab 12/06/23 12/07/23 Rx Ipratropium-Albuterol Nebulize 3 ml INHALATION RT-QID 30 Days 12/06/23 12/07/23 Rx [Duoneb 0.5 mg-3 mg/3 ml Soln] #120 each predniSONE See Taper PO DIRECTED 12 Days 12/06/23 12/07/23 Rx #30 tab Allergies Allergy/AdvReac Type Severity Reaction Status Date / Time No Known Allergies Allergy Verified 12/02/23 11:25 Physical Exam Vitals: Vital Signs Temp Pulse Pulse Resp BP BP Pulse Ox 12/07/23 21:39 97.6 F 88 136/76 89 L 12/07/23 20:17 80 12/07/23 20:03 78 12/07/23 19:00 84 18 120/72 95 12/07/23 18:24 88 12/07/23 18:15 85 95 12/07/23 16:00 97 22 120/72 95 12/07/23 15:42 76 12/07/23 15:25 78 12/07/23 15:00 95 22 120/72 95 12/07/23 14:43 22 12/07/23 14:42 93 L 12/07/23 14:37 98.1 F 83 18 120/72 83 L Intake and Output 12/07/23 12/07/23 12/08/23 14:59 22:59 06:59 Other: Voiding Method Toilet # Voids 1 1 Weight 65.771 kg 65.771 kg No acute distress, oriented 3. Currently on 4 L of oxygen. No conversational dyspnea or use of accessory muscles. HEENT examination is grossly unremarkable. Mucous membranes are moist. No oral lesions. Neck supple. Full range of motion. No adenopathy thyromegaly or neck vein distention. Cardiovascular examination reveals regular rhythm rate. S1-S2 normal. No S3 or S4. No discernible murmur noted. Heart sounds are distant. Lung sounds are equal and markedly diminished throughout. No significant crackles, rhonchi, wheezes. Abdomen soft bowel sounds are heard. No masses or tenderness. Extremities are intact. No cyanosis clubbing or edema. Skin is without rash or lesion. Neurologic examination is brief but nonfocal. Results - Laboratory Findings CBC and BMP: 12/07/23 15:03 12/08/23 07:45 PT/INR, D-dimer PT 11.0 sec (10.0-12.5) 12/07/23 15:03 INR 1.0 (<1.2) 12/07/23 15:03 Abnormal lab findings: Abnormal Labs 12/07/23 12/07/23 12/07/23 15:03 15:03 15:03 WBC 10.9 H Hct 53.8 H MCV 100.9 H MCHC 30.3 L Neutrophils # 10.0 H Lymphocytes # 0.3 L APTT 20.8 L Potassium 3.3 L Carbon Dioxide 32 H BUN 58 H Glucose 320 H Calcium 6.6 L Magnesium 1.5 L ALT 52 H Total Protein 4.4 L Albumin 2.3 L - Diagnostic Findings Chest x-ray: image reviewed Assessment and Plan Assessment: Acute hypoxemic respiratory failure, secondary to acute COPD exacerbation, complicated by influenza A. Patient has completed 5-day course of Tamiflu. He was discharged yesterday and readmitted within less than 24 hours. Will continue treatment for COPD exacerbation. Chest x-ray still shows hyperinflation and flattened diaphragms consistent with COPD, no focal infiltrate or evidence of pneumonia, there is blunting of the left costophrenic angle and possible left pleural effusion, cardiac silhouette is stable, no significant pulmonary vascular congestion. Acute hypoxic respiratory failure and the patient is currently on oxygen at 4 L nasal Suspected lung cancer, right upper lobe, status post SBRT. The follow-up CAT scan of the chest shows no evidence of any pulmonary embolism. There was a 1.1 cm right upper lobe spiculated lesion. Advanced severe/stage IV COPD, with an FEV1 that is 27% of predicted. Chronic ongoing tobacco dependence Hyperlipidemia. History of hypertension. Coronary artery disease, history of myocardial infarction, status post PCI/stent placement. History of paroxysmal atrial fibrillation, anticoagulated on Eliquis Abdominal aortic aneurysm asymptomatic, measuring 5.1 cm Chronic kidney disease, stage III Mild CHF with ejection fraction of 45-50% along with apical septal hypokinesis Plan: Patient's medications, labs, chest x-ray reviewed Patient continues on 4 L nasal cannula, continue to maintain SpO2 greater than 90% Patient readmitted in less than 24 hours for acute COPD exacerbation. He has been restarted on medications including DuoNebs [id number], Symbicort inhaler, and IV Solu-Medrol. I believe the patient completed his course of Tamiflu. No focal infiltrates or evidence of pneumonia on his chest x-ray, and I will hold off on starting any antibiotics. Smoking cessation counseling performed. Nicotine replacement offered. We will continue to follow I have personally seen and examined the patient, performed the documentation and the assessment and plan as written. Number of minutes spent on the visit:20 This is a joint evaluation that was done along with the nurse practitioner. This evaluation was done in more than 30 minutes. The patient is very well known to me. The patient was recently hospitalized for an acute COPD exacerbation and influenza A infection. The patient was treated and within the next few days of treatment, the patient wanted to go home. He was discharged home on 12/06/2023 to be readmitted within 24 hours as the patient went home and started smoking cigarettes aggressively. This exacerbated his COPD and for that reason the patient came back to the hospital short of breath bronchospastic and wheezy. Based on that, the patient was started on the same treatment and the patient is currently on bronchodilators and IV Solu-Medrol. Clinically the patient is stable. The patient remains on 4 L of oxygen nasal cannula. There is no interval worsening in requirements. The patient will be admitted to optimize his COPD. Will continue to follow. Please refer to the above-mentioned discussion. Time with Patient: Greater than 30
--- NOTE | 2023-12-08 04:55 | P.HPIM ---
History of Present Illness H&P Date: 12/07/23 Chief Complaint: Shortness of breath 73-year-old male coronary artery disease, lung cancer, COPD continues to smoke Patient has just left the hospital today spent few hours at home became short of breath again and his brother brought him back to the hospital for evaluation. Patient initially presented to the ED earlier this month where he was diagnosed with influenza and COPD exacerbation requiring supplemental oxygen at that time he left AGAINST MEDICAL ADVICE. Then came back to the hospital 2 days later with worsening symptoms of shortness of breath for which she was admitted and treated for acute COPD exacerbation with systemic steroids and breathing treatments, chest x-ray done at that time negative for any acute cardiopulmonary process, D-dimer was elevated CT angio of the chest performed showed no acute PE, however it showed a suspicious spiculated right upper lobe pulmonary nodule measuring 1.1 cm. He was also noted to have elevated troponins thought to be NSTEMI type II secondary to A-fib with RVR, echocardiogram done showed left ventricular ejection fraction of 45% This time patient was treated with systemic steroids IV, Tamiflu and supplement al oxygen was evaluated by cardiology and pulmonary service patient was discharged with home oxygen 4 L continuous due to advanced COPD and lung cancer Patient admits that he insisted on leaving the hospital today however now he regrets that decision. As he started becoming very short of breath and wheezy once we he was home he could not do anything due to severe shortness of breath even at rest He continues to report productive cough denies any fever chills nausea vomiting review of systems Pertinent positives as noted in HPI. All other systems were reviewed and are negative on exam Constitutional: No acute distress, conversant, pleasant Eyes: Anicteric sclerae, moist conjunctiva, Pupils equal round reactive to light ENMT: NC/AT Oropharynx clear, no erythema, or exudates Neck: Supple, no masses, or JVD No carotid bruits No thyromegaly Lungs: Diminished breath sounds throughout no wheezing, rhonchi Clear to percussion Normal respiratory effort, no accessory muscle use Cardiovascular: Heart regular in rate and rhythm, No murmurs, gallops, or rubs No peripheral edema Abdominal: Soft Nontender, no guarding, rebound or rigidity Abdomen moving with respiration Normoactive bowel sounds No hepatomegaly, No splenomegaly No palpable mass No abdominal wall hernia noted Extremities: No digital cyanosis No clubbing Pedal pulses intact and symmetrical Radial pulses intact and symmetrical No calf tenderness Psychiatric: Alert and oriented to person, place and time Appropriate affect fair judgement Neuro Muscles Strength 5/5 in all 4 extremities Sensation to light touch grossly present throughout Cranial nerves II-XII grossly intact Past Medical History Past Medical History: Atrial Fibrillation, Cancer, COPD, CVA/TIA, Hyperlipidem ia, Hypertension, Myocardial Infarction ([place]) Additional Past Medical History / Comment(s): Current lung CA (right lung; dx around 2020), 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 Right leg stent. Past Anesthesia/Blood Transfusion Reactions: No Reported Reaction Date of Last Stent Placement:: 09/09/2010 Smoking Status: Current every day smoker Medications and Allergies Home Medications Medication Instructions Recorded Confirmed Type Metoprolol Tartrate [Lopressor] 50 mg PO BID 10/19/20 12/07/23 History Aspirin EC [Ecotrin Low Dose] 81 mg PO DAILY 11/30/23 12/07/23 History Lisinopril-Hctz 10-12.5 mg 1 tab PO DAILY 11/30/23 12/07/23 History [Zestoretic 10-12.5] Rosuvastatin [Crestor] 20 mg PO DAILY 11/30/23 12/07/23 History Tiotropium Br/Olodaterol HCl 2 puff INHALATION RT-DAILY 11/30/23 12/07/23 His tory [Stiolto Respimat Inhal [place]] Apixaban [Eliquis] 5 mg PO BID 30 Days #60 tab 12/06/23 12/07/23 Rx Ipratropium-Albuterol Nebulize 3 ml INHALATION RT-QID 30 Days 12/06/23 12/07/23 Rx [Duoneb 0.5 mg-3 mg/3 ml Soln] #120 each predniSONE See Taper PO DIRECTED 12 Days 12/06/23 12/07/23 Rx #30 tab Allergies Allergy/AdvReac Type Severity Reaction Status Date / Time No Known Allergies Allergy Verified 12/02/23 11:25 Physical Exam Vitals: Vital Signs Temp Pulse Pulse Resp BP BP Pulse Ox 12/08/23 02:00 97.7 F 70 133/82 94 L 12/07/23 21:39 97.6 F 88 136/76 89 L 12/07/23 20:17 80 12/07/23 20:03 78 12/07/23 19:00 84 18 120/72 95 12/07/23 18:24 88 12/07/23 18:15 85 95 12/07/23 16:00 97 22 120/72 95 12/07/23 15:42 76 12/07/23 15:25 78 12/07/23 15:00 95 22 120/72 95 12/07/23 14:43 22 12/07/23 14:42 93 L 12/07/23 14:37 98.1 F 83 18 120/72 83 L Intake and Output 12/07/23 12/07/23 12/08/23 14:59 22:59 06:59 Other: Voiding Method Toilet # Voids 1 1 Weight 65.771 kg 65.771 kg Results CBC & Chem 7: 12/07/23 15:03 12/07/23 15:03 Labs: Abnormal Lab Results - Last 24 Hours (Table) 12/07/23 12/07/23 12/07/23 Range/Units 15:03 15:03 15:03 WBC 10.9 H (3.8-10.6) k/uL Hct 53.8 H (39.0-53.0) % MCV 100.9 H (80.0-100.0) fL MCHC 30.3 L (31.0-37.0) g/dL Neutrophils # 10.0 H (1.3-7.7) k/uL Lymphocytes # 0.3 L (1.0-4.8) k/uL APTT 20.8 L (22.0-30.0) sec Potassium 3.3 L (3.5-5.1) mmol/L Carbon Dioxide 32 H (22-30) mmol/L BUN 58 H (9-20) mg/dL Glucose 320 H (74-99) mg/dL Calcium 6.6 L (8.4-10.2) mg/dL Magnesium 1.5 L (1.6-2.3) mg/dL ALT 52 H (4-49) U/L Total Protein 4.4 L (6.3-8.2) g/dL Albumin 2.3 L (3.5-5.0) g/dL Thrombosis Risk Factor Assmnt - Choose All That Apply Any of the Below Risk Factors Present?: Yes Each Factor Represents 1 point: Abnormal pulmonary function (COPD) Each Risk Factor Represents 3 Points: Age 75 years or older Thrombosis Risk Factor Assessment Total Risk Factor Score: 4 Thrombosis Risk Factor Assessment Level: Moderate Risk Assessment and Plan Assessment: 73-year-old male with advanced COPD on home oxygen recently initiated, lung cancer, patient was just discharged from the hospital today after spending 5 days for acute COPD exacerbation secondary to influenza A however he came back within few hours due to difficulty breathing I discussed case with ED doctor and accepted the admission for subacute COPD exacerbation with anticipated length of stay less than 2 midnights Acute hypoxic respiratory failure COPD exacerbation Supplemental oxygen as needed Continue with systemic IV steroids, Solu-Medrol 60 mg every 6 hours DuoNeb scheduled and as needed Symbicort twice daily Montelukast Chest x-ray showed no acute pathology Electrolyte imbalance Hypocalcemia 6.6, corrected to albumin is 8.2 Magnesium 1.5 replace IV and follow-up levels Mild hypokalemia with potassium 3.3 replace orally Chronic conditions Systolic CHF with left ventricular ejection fraction 45% currently compensated Paroxysmal A-fib on Eliquis History of coronary artery disease Hypertension controlled resume home medications Lung cancer continue to follow-up outpatient Blood work showing troponins negative BNP 2920 White count 10.9 hemoglobin 16.3 unremarkable CODE STATUS DNR DVT prophylaxis on Eliquis for A-fib
[2023-12-08] MEDS: MAGNESIUM SULFATE-D5W PMX 1 GM in DEXTROSE/WATER 1 100ML.BAG IVPB SCH (05:39)
[2023-12-08] MEDS: POTASSIUM CHLORIDE ER 10 MEQ TAB.ER.PRT PO STA (05:39)
[2023-12-08] MEDS: METOPROLOL TARTRATE 50 MG TAB PO SCH (08:49)
[2023-12-08] MEDS: APIXABAN 5 MG TAB PO SCH (08:49)
[2023-12-08] MEDS: ASPIRIN 81 MG PO SCH (08:49)
[2023-12-08] MEDS: LISINOPRIL-HCTZ 10-12.5 MG 1 EACH TAB PO SCH (08:49)
[2023-12-08] MEDS: MAGNESIUM OXIDE 400 MG TAB PO SCH (08:49)
[2023-12-08] MEDS: ATORVASTATIN 40 MG TAB PO SCH (08:49)
[2023-12-08] MEDS: NICOTINE 21MG/24HR PATCH TRANSDERM SCH (08:50)
[2023-12-08] MEDS: IPRATROPIUM-ALBUTEROL 3 ML NEB INHALATION SCH (09:09)
[2023-12-08] MEDS: SYMBICORT 160-4.5 MCG INHALER INHALATION SCH (09:09)
[2023-12-08 11:18] LABS: BUN/Creat Ratio 35.62 Ratio (12.00-20.00); Blood Urea Nitrogen 46.3 mg/dL (9.0-27.0); Calcium 8.5 mg/dL (8.7-10.3); Carbon Dioxide 37.2 mmol/L (21.6-31.8); Chloride 96 mmol/L (96-109); Glucose 179 mg/dL (70-110); Magnesium 2.6 mg/dL (1.5-2.4); Potassium 4.9 mmol/L (3.5-5.5); Sodium 140 mmol/L (135-145)
--- NOTE | 2023-12-08 11:33 | P.PN ---
Subjective Progress Note Date: 12/08/23 Hospital Course: Patient is a very pleasant 73-year-old male with a past medical history of CAD, hypertension, hyperlipidemia, chronic kidney disease stage IIIb, lung cancer reported by patient however only documentation showing suspicious right upper lobe spiculated pulmonary nodule, and COPD with continued nicotine dependence. He recently underwent hospitalization from 12/02/2023 through 12/07/2023 for acute respiratory failure with hypoxia secondary to COPD exacerbation and influenza A accompanied by underlying lung cancer, NSTEMI, and new onset atrial fib rillation. During this 5-night hospitalization course, patient received treatment with IV steroids, antiretroviral with Tamiflu, and was placed on scheduled and as needed breathing treatments. Patient was discharged home on 4 L continuous O2, steroid taper, and a nebulizer machine with scheduled DuoNeb treatments. Patient was very adamant about discharge and was strongly advised on smoking cessation, however after returning home he reports going home and smoking cigarettes and instantly regretting that decision as he again became very short of breath and was unable to recover or catch his breath with rest so he returned to the emergency department. Upon arrival to the emergency department vital signs were obtained. Blood pressure 120/72, heart rate 83, respiratory rate 18, temp 98.1 F, and SpO2 of 83% on room air once patient was placed back on previous oxygen that he was discharged home with being 4 L O2 sats increasing to 93%. Labs were completed and reviewed. CBC showing mild leukocytosis with WBC count of 10.9. BMP did reveal hypokalemia with potassium of 8.3, hypercarbia with bicarb of 32, prerenal azotemia with BUN of 58, hyperglycemia with glucose of 320, calcium of 6.6 with corrected calcium of 8.0, hypomagnesemia with magnesium of 1.5, troponin of 0.023 and proBNP of 2920. Patient admitted under our services with consultation to pulmonology. Physical exam: Patient seen and fully evaluated at bedside and had long discussion with patient again about the importance of smoking cessation and instructed him that if again after discharge he returns home and smokes cigarettes in his condition, it will likely again resulted in coughing fits and inability to catch his breath. Vital signs reviewed and stable. General: Nontoxic, no distress and appears stated age. Derm: Skin warm and dry, normal coloration for ethnicity. Head: Atraumatic, normocephalic and symmetric. Eyes: EOMs intact, no lid lag, and anicteric sclera Mouth: no lip lesions, mucus membranes moist Cardiovascular: regular rate and rhythm with normal S1S2, no murmur, positive posterior tibial pulses bilaterally, and cap refill < 2 seconds. Lungs: Respirations even, regular, and unlabored on supplemental oxygen. Lungs diminished. No rhonchi, no rales, no wheezing, and no accessory muscle usage. Abdominal: soft, nontender to palpation, no guarding, no appreciable organomegaly Ext: ROM intact. No gross muscle atrophy, no edema, no contractures Neuro: Speech clear, face symmetrical and CN II-XII grossly intact with no noted focal neuro deficits Psych: Alert and oriented to person, place, time, and situation. Appropriate and pleasant affect. Assessment and plan of care: Acute respiratory failure with hypoxia status post recent hospitalization for NSTEMI, COPD exacerbation and influenza A requiring discharged home on continuous home oxygen Paroxysmal atrial fibrillation Chronic kidney disease stage IIIb Coronary artery disease Hypertension Hyperlipidemia Continued nicotine dependence, recommend smoking cessation. Lung cancer -Pulmonology following secondary to COPD exacerbation with advanced COPD with reported FEV1 of 27%, discussed plan of care with Dr. Weston. -Continue IV Solu-Medrol 60 mg IVP every 6 hours and current plan of care. -Oxygenation to be administered and titrated as needed to maintain SPO2 equal to or greater than 92% -Telemetry monitoring. -Monitor pulse-oximetry -Patient completed 5-day course of Tamiflu during previous hospitalization on 12/04/2023 -Duonebs scheduled 4 times daily and as needed for SOB and/or wheezing, and Symbicort 160-4.5 mcg inhaler 2 puffs twice daily. -Continue daily medication regimen with Eliquis 5 mg twice daily, aspirin 81 mg daily, atorvastatin 40 mg daily, lisinopril/hydrochlorothiazide 10/12.5 mg tablet daily, and metoprolol 50 mg twice daily. -Recommend smoking cessation, patient declining nicotine patch. Electrolyte abnormalities with hypomagnesemia and hypokalemia, resolved. Data and imaging reviewed: -Morning labs reviewed. BMP showing hypercarbia with bicarb of 37.2 otherwise unremarkable with sodium 140, potassium 4.9, chloride 96, anion gap of 6.8 and renal function showing BUN of 46.3, creatinine 1.3, GFR 57. Blood glucose 179. Magnesium 2.6. -Vital signs reviewed. Blood pressure 140/82, heart rate 72, respiratory rate 18, temp 97.8 F, and SpO2 of 96% on 4 L. CODE STATUS: DNR/DNI DVT prophylaxis: Phil Anticipated discharge date: Likely within the next [address]: Home Patient was seen independently by Nurse Pracitioner. This document was prepared using [employer] dictation software. Please allow for errors in zone supervisor firearms, while rare they do occur. Oc Vallejo NP rendered care for this patient independently, reviewed the findings and plan as documented in the note above. I did not physically speak with or examine the patient on this date. Objective - Vital Signs Vital signs: Vital Signs Temp 97.8 F 12/08/23 07:00 Pulse 72 12/08/23 07:00 Resp 18 12/08/23 07:00 BP 140/82 12/08/23 07:00 Pulse Ox 96 12/08/23 07:00 FiO2 Intake & Output 12/07/23 12/08/23 12/08/23 18:59 06:59 18:59 Intake Total 240 Balance 240 Weight 65.771 kg 65.771 kg Intake: Oral 240 Other: Voiding Method Toilet # Voids 1 - Labs CBC & Chem 7: 12/07/23 15:03 12/08/23 07:45 Labs: Abnormal Lab Results - Last 24 Hours (Table) 12/07/23 12/07/23 12/07/23 Range/Units 15:03 15:03 15:03 WBC 10.9 H (3.8-10.6) k/uL Hct 53.8 H (39.0-53.0) % MCV 100.9 H (80.0-100.0) fL MCHC 30.3 L (31.0-37.0) g/dL Neutrophils # 10.0 H (1.3-7.7) k/uL Lymphocytes # 0.3 L (1.0-4.8) k/uL APTT 20.8 L (22.0-30.0) sec Potassium 3.3 L (3.5-5.1) mmol/L Carbon Dioxide 32 H (22-30) mmol/L BUN 58 H (9-20) mg/dL Glucose 320 H (74-99) mg/dL Calcium 6.6 L (8.4-10.2) mg/dL Magnesium 1.5 L (1.6-2.3) mg/dL ALT 52 H (4-49) U/L Total Protein 4.4 L (6.3-8.2) g/dL Albumin 2.3 L (3.5-5.0) g/dL
[2023-12-08] MEDS: MONTELUKAST 10 MG TAB PO SCH (19:44)
--- NOTE | 2023-12-09 12:21 | P.PN ---
Subjective Progress Note Date: 12/09/23 I am seeing this patient in consultation today December 08, 2023, patient was just discharged home yesterday for acute COPD exacerbation complicated by influenza A infection. I believe he has completed a course of Tamiflu. Patient is a 73-year-old white male with past medical history significant for severe COPD with an FEV1 27% of predicted, suspicious right upper lobe pulmonary nodule status post SBRT, chronic A-fib, coronary artery disease with previous PCI/stenting, chronic kidney disease, and chronic ongoing tobacco dependence. He sees Dr. Monteiro in the office for his pulmonary needs. As stated above, patient was just discharged yesterday on December 07 after a hospitalization for acute COPD exacerbation complicated by influenza A infection. He has completed course of Tamiflu. He was discharged on prednisone taper and home O2. Less than 24 hours later the patient was severely short of breath, especially with any exertion, and returned to the emergency room. He continues to have an intermittent cough with johansen-white sputum production. He denies any fevers, hemoptysis. Endorses some pleuritic like chest pain only on coughing. Chest x- ray on arrival did not show any focal consolidations or evidence of pneumonia. There is blunting of the left costophrenic angle, and possible small pleural effusion. Cardiac silhouette is stable, no significant pulmonary vascular congestion. CBC on arrival: WBC count of 10.9, hemoglobin 16.3, hematocrit 53.8, platelets 201. BMP on arrival: Sodium 137, potassium 3.3, chloride 103, serum bicarb 32, BUN 58, creatinine 1.04, glucose 320. NT proBNP 2920. Troponin 0.023. He is currently lying in bed, on a 4 L nasal cannula, in no acute distress. SpO2 is 95%. vital signs are stable. On 12/09/2023, the patient sitting up at edge of the bed. Being treated for an acute exacerbation and he remains essentially on the same treatment with the patient is on DuoNeb updrafts and IV Solu-Medrol. He is also Symbicort as maintenance. No new complaints. No signs of any CO2 narcosis. No other complaints otherwise. Objective - Vital Signs Vital signs: Vital Signs Temp 98.0 F 12/09/23 07:00 Pulse 68 12/09/23 08:05 Resp 16 12/09/23 07:00 BP 144/80 12/09/23 07:00 Pulse Ox 93 L 12/09/23 07:55 FiO2 Intake & Output 12/08/23 12/09/23 12/09/23 18:59 06:59 18:59 Intake Total 358 500 118 Output Total 600 Balance -242 500 118 Intake: Oral 358 500 118 Output: Urine 600 Other: Voiding Method Urinal Toilet # Voids 2 - Exam No acute distress, oriented 3. Currently on 4 L of oxygen. No conversational dyspnea or use of accessory muscles. HEENT examination is grossly unremarkable. Mucous membranes are moist. No oral lesions. Neck supple. Full range of motion. No adenopathy thyromegaly or neck vein distention. Cardiovascular examination reveals regular rhythm rate. S1-S2 normal. No S3 or S4. No discernible murmur noted. Heart sounds are distant. Lung sounds are equal and markedly diminished throughout. No significant crackles, rhonchi, wheezes. Abdomen soft bowel sounds are heard. No masses or tenderness. Extremities are intact. No cyanosis clubbing or edema. Skin is without rash or lesion. Neurologic examination is brief but nonfocal. - Labs CBC & Chem 7: 12/07/23 15:03 12/08/23 07:45 Labs: Abnormal Lab Results - Last 24 Hours (Table) 12/08/23 Range/Units 07:45 Carbon Dioxide 37.2 H (21.6-31.8) mmol/L BUN 46.3 H (9.0-27.0) mg/dL Est GFR (CKD-EPI) 57 L (>=60) BUN/Creatinine Ratio 35.62 H (12.00-20.00) Ratio Glucose 179 H (70-110) mg/dL Calcium 8.5 L (8.7-10.3) mg/dL Magnesium 2.6 H (1.5-2.4) mg/dL Assessment and Plan Assessment: Acute hypoxemic respiratory failure, secondary to acute COPD exacerbation, complicated by influenza A. Patient has completed 5-day course of Tamiflu. He was discharged yesterday and readmitted within less than 24 hours. Will continue treatment for COPD exacerbation. Chest x-ray still shows hyperinflation and flattened diaphragms consistent with COPD, no focal infiltrate or evidence of pneumonia, there is blunting of the left costophrenic angle and possible left pleural effusion, cardiac silhouette is stable, no significant pulmonary vascular congestion. Acute hypoxic respiratory failure and the patient is currently on oxygen at 4 L nasal Suspected lung cancer, right upper lobe, status post SBRT. The follow-up CAT scan of the chest shows no evidence of any pulmonary embolism. There was a 1.1 cm right upper lobe spiculated lesion. Advanced severe/stage IV COPD, with an FEV1 that is 27% of predicted. Chronic ongoing tobacco dependence Hyperlipidemia. History of hypertension. Coronary artery disease, history of myocardial infarction, status post PCI/stent placement. History of paroxysmal atrial fibrillation, anticoagulated on Eliquis Abdominal aortic aneurysm asymptomatic, measuring 5.1 cm Chronic kidney disease, stage III Mild CHF with ejection fraction of 45-50% along with apical septal hypokinesis Plan: Will continue the same treatment for now. Continue bronchodilators and steroids. Clinically stable probably slightly improved compared to yesterday. Overall, his advanced lung disease and patient has long-term limitation in exercise capacity related to COPD. Will continue to follow.
--- NOTE | 2023-12-09 15:44 | P.PN ---
Subjective Progress Note Date: 12/09/23 Hospital Course: Patient is a very pleasant 73-year-old male with a past medical history of CAD, hypertension, hyperlipidemia, chronic kidney disease stage IIIb, lung cancer reported by patient however only documentation showing suspicious right upper lobe spiculated pulmonary nodule, and COPD with continued nicotine dependence. He recently underwent hospitalization from 12/02/2023 through 12/07/2023 for acute respiratory failure with hypoxia secondary to COPD exacerbation and influenza A accompanied by underlying lung cancer, NSTEMI, and new onset atrial fib rillation. During this 5-night hospitalization course, patient received treatment with IV steroids, antiretroviral with Tamiflu, and was placed on scheduled and as needed breathing treatments. Patient was discharged home on 4 L continuous O2, steroid taper, and a nebulizer machine with scheduled DuoNeb treatments. Patient was very adamant about discharge and was strongly advised on smoking cessation, however after returning home he reports going home and smoking cigarettes and instantly regretting that decision as he again became very short of breath and was unable to recover or catch his breath with rest so he returned to the emergency department. Upon arrival to the emergency department vital signs were obtained. Blood pressure 120/72, heart rate 83, respiratory rate 18, temp 98.1 F, and SpO2 of 83% on room air once patient was placed back on previous oxygen that he was discharged home with being 4 L O2 sats increasing to 93%. Labs were completed and reviewed. CBC showing mild leukocytosis with WBC count of 10.9. BMP did reveal hypokalemia with potassium of 8.3, hypercarbia with bicarb of 32, prerenal azotemia with BUN of 58, hyperglycemia with glucose of 320, calcium of 6.6 with corrected calcium of 8.0, hypomagnesemia with magnesium of 1.5, troponin of 0.023 and proBNP of 2920. Patient admitted under our services with consultation to pulmonology. Physical exam: Patient seen and fully evaluated at bedside, his brother was also at the bedside visiting this morning. Patient minimally talkative this morning appears disc ouraged. His breathing is stable and his SpO2 is currently 93% on 4 L.. Patient is likely at his new baseline respiratory function, patient reports he is not ready to go home yet. Will discuss further with core assembly supervisor. Will monitor for an additional 24 hours and likely plan for discharge home tomorrow. Vital signs reviewed and stable. General: Nontoxic, no distress and appears stated age. Derm: Skin warm and dry, normal coloration for ethnicity. Head: Atraumatic, normocephalic and symmetric. Eyes: EOMs intact, no lid lag, and anicteric sclera Mouth: no lip lesions, mucus membranes moist Cardiovascular: regular rate and rhythm with normal S1S2, no murmur, positive posterior tibial pulses bilaterally, and cap refill < 2 seconds. Lungs: Respirations even, regular, and unlabored on supplemental oxygen. Lungs diminished. No rhonchi, no rales, no wheezing, and no accessory muscle usage. Abdominal: soft, nontender to palpation, no guarding, no appreciable organomegaly Ext: ROM intact. No gross muscle atrophy, no edema, no contractures Neuro: Speech clear, face symmetrical and CN II-XII grossly intact with no noted focal neuro deficits Psych: Alert and oriented to person, place, time, and situation. Appropriate and pleasant affect. Assessment and plan of care: Acute respiratory failure with hypoxia status post recent hospitalization for NSTEMI, COPD exacerbation and influenza A requiring discharged home on con tinuous home oxygen Paroxysmal atrial fibrillation Chronic kidney disease stage IIIb Coronary artery disease Hypertension Hyperlipidemia Continued nicotine dependence, recommend smoking cessation. Lung cancer -Pulmonology following secondary to COPD exacerbation with advanced COPD with reported FEV1 of 27%, discussed plan of care with Dr. Weston. -Continue IV Solu-Medrol 60 mg IVP every 6 hours and current plan of care. -Oxygenation to be administered and titrated as needed to maintain SPO2 equal to or greater than 92% -Telemetry monitoring. -Monitor pulse-oximetry -Patient completed 5-day course of Tamiflu during previous hospitalization on 12/04/2023 -Duonebs scheduled 4 times daily and as needed for SOB and/or wheezing, and Symbicort 160-4.5 mcg inhaler 2 puffs twice daily. -Continue daily medication regimen with Eliquis 5 mg twice daily, aspirin 81 mg daily, atorvastatin 40 mg daily, lisinopril/hydrochlorothiazide 10/12.5 mg tablet daily, and metoprolol 50 mg twice daily. -Recommend smoking cessation, patient declining nicotine patch. Electrolyte abnormalities with hypomagnesemia and hypokalemia, resolved. Data and imaging reviewed: -Vital signs reviewed. Blood pressure 144/80, heart rate 65, respiratory rate 16, temp 98.0 F, and SpO2 of 93% on 4 L. CODE STATUS: DNR/DNI DVT prophylaxis: Eliquis Anticipated discharge date: Likely tomorrow morning Anticipated discharge place: Home Patient was seen independently by Nurse Pracitioner. This document was prepared using [employer] dictation software. 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 I reviewed the documentation as provided by the SHAW[facility] above, who is the original author of this note. I agree with the documented assessment and plan, with the following changes: none Objective - Vital Signs Vital signs: Vital Signs Temp 98.0 F 12/09/23 07:00 Pulse 65 12/09/23 07:00 Resp 16 12/09/23 07:00 BP 144/80 12/09/23 07:00 Pulse Ox 93 L 12/09/23 07:00 FiO2 Intake & Output 12/08/23 12/09/23 12/09/23 18:59 06:59 18:59 Intake Total 358 500 Output Total 600 Balance -242 500 Intake: Oral 358 500 Output: Urine 600 Other: Voiding Method Urinal Toilet # Voids 2 - Labs CBC & Chem 7: 12/11/23 09:18 12/11/23 11:25 Labs: Abnormal Lab Results - Last 24 Hours (Table) 12/08/23 Range/Units 07:45 Carbon Dioxide 37.2 H (21.6-31.8) mmol/L BUN 46.3 H (9.0-27.0) mg/dL Est GFR (CKD-EPI) 57 L (>=60) BUN/Creatinine Ratio 35.62 H (12.00-20.00) Ratio Glucose 179 H (70-110) mg/dL Calcium 8.5 L (8.7-10.3) mg/dL Magnesium 2.6 H (1.5-2.4) mg/dL
[2023-12-10] MEDS: MELATONIN 5 MG TABLET PO PRN (01:50)
[2023-12-10 09:32] LABS: HCT 51.6 % (39.6-50.0); HGB 16.4 g/dL (13.0-17.0); MCH 31.1 pg (27.0-32.0); MCHC 31.8 g/dL (32.0-37.0); MCV 97.9 FL (80.0-97.0); Mean Platelet Volume 10.6 FL (9.5-12.2); NRBC Per 100 WBC 0 X 10*3/uL (0.00-0.01); Platelet Count 241 X 10*3/uL (140-440); RBC 5.27 X 10*6/uL (4.40-5.60); RDW 13.4 % (11.5-14.5); WBC 10.83 X 10*3/uL (4.50-10.00)
[2023-12-10 10:08] LABS: ALT 47 U/L (10-49); AST 20 U/L (14-35); Albumin 2.9 g/dL (3.8-4.9); Albumin/Globulin Ratio 1.71 Ratio (1.60-3.17); Alkaline Phosphatase 50 U/L (41-126); BUN/Creat Ratio 36.93 Ratio (12.00-20.00); Blood Urea Nitrogen 55.4 mg/dL (9.0-27.0); Calcium 8.5 mg/dL (8.7-10.3); Carbon Dioxide 36.2 mmol/L (21.6-31.8); Chloride 96 mmol/L (96-109); Globulin 1.7 g/dL (1.6-3.3); Glucose 183 mg/dL (70-110); Potassium 4.6 mmol/L (3.5-5.5); Sodium 141 mmol/L (135-145); Total Bilirubin 0.5 mg/dL (0.3-1.2); Total Protein 4.6 g/dL (6.2-8.2)
--- NOTE | 2023-12-10 14:07 | P.PN ---
Subjective Progress Note Date: 12/10/23 I am seeing this patient in consultation today December 08, 2023, patient was just discharged home yesterday for acute COPD exacerbation complicated by influenza A infection. I believe he has completed a course of Tamiflu. Patient is a 73-year-old white male with past medical history significant for severe COPD with an FEV1 27% of predicted, suspicious right upper lobe pulmonary nodule status post SBRT, chronic A-fib, coronary artery disease with previous PCI/stenting, chronic kidney disease, and chronic ongoing tobacco dependence. He sees Dr. Monteiro in the office for his pulmonary needs. As stated above, patient was just discharged yesterday on December 07 after a hospitalization for acute COPD exacerbation complicated by influenza A infection. He has completed course of Tamiflu. He was discharged on prednisone taper and home O2. Less than 24 hours later the patient was severely short of breath, especially with any exertion, and returned to the emergency room. He continues to have an intermittent cough with johansen-white sputum production. He denies any fevers, hemoptysis. Endorses some pleuritic like chest pain only on coughing. Chest x- ray on arrival did not show any focal consolidations or evidence of pneumonia. There is blunting of the left costophrenic angle, and possible small pleural effusion. Cardiac silhouette is stable, no significant pulmonary vascular congestion. CBC on arrival: WBC count of 10.9, hemoglobin 16.3, hematocrit 53.8, platelets 201. BMP on arrival: Sodium 137, potassium 3.3, chloride 103, serum bicarb 32, BUN 58, creatinine 1.04, glucose 320. NT proBNP 2920. Troponin 0.023. He is currently lying in bed, on a 4 L nasal cannula, in no acute distress. SpO2 is 95%. vital signs are stable. On 12/09/2023, the patient sitting up at edge of the bed. Being treated for an acute exacerbation and he remains essentially on the same treatment with the patient is on DuoNeb updrafts and IV Solu-Medrol. He is also Symbicort as maintenance. No new complaints. No signs of any CO2 narcosis. No other complaints otherwise. On 12/10/2023, the patient looks to be fatigued and tired and is mainly in bed without doing much of an activity. He did not sleep well and he feels tired and sleepy on today's evaluation. Remains on DuoNeb updrafts, Symbicort as maintenance and IV Solu-Medrol. No chest pain. No altered mentation. Labs are all stable with a white cell count of 10 hemoglobin of 16.4 and a platelet count of 241. Creatinine is at 1.5 with a BUN of 55 and a sodium levels of 141. The patient has sustained acute kidney injury. He will benefit from fluid hydration and the patient was placed on 75 cc of normal saline for now. Objective - Vital Signs Vital signs: Vital Signs Temp 97.6 F 12/10/23 07:00 Pulse 68 12/10/23 08:15 Resp 16 12/10/23 07:00 BP 105/55 12/10/23 09:28 Pulse Ox 94 L 12/10/23 08:05 FiO2 Intake & Output 12/09/23 12/10/23 12/10/23 18:59 06:59 18:59 Intake Total 340 400 118 Balance 340 400 118 Intake: Oral 340 400 118 Other: Voiding Method Toilet Toilet # Voids 1 2 - Exam Acute hypoxemic respiratory failure, secondary to acute COPD exacerbation, complicated by influenza A. Patient has completed 5-day course of Tamiflu. He was discharged yesterday and readmitted within less than 24 hours. Will continue treatment for COPD exacerbation. Chest x-ray still shows hyperinflation and flattened diaphragms consistent with COPD, no focal inf iltrate or evidence of pneumonia, there is blunting of the left costophrenic angle and possible left pleural effusion, cardiac silhouette is stable, no significant pulmonary vascular congestion. Acute hypoxic respiratory failure and the patient is currently on oxygen at 4 L nasal Suspected lung cancer, right upper lobe, status post SBRT. The follow-up CAT scan of the chest shows no evidence of any pulmonary embolism. There was a 1.1 cm right upper lobe spiculated lesion. Advanced severe/stage IV COPD, with an FEV1 that is 27% of predicted. Chronic ongoing tobacco dependence Hyperlipidemia. History of hypertension. Coronary artery disease, history of myocardial infarction, status post PCI/stent placement. History of paroxysmal atrial fibrillation, anticoagulated on Eliquis Abdominal aortic aneurysm asymptomatic, measuring 5.1 cm Chronic kidney disease, stage III Mild CHF with ejection fraction of 45-50% along with apical septal hypokinesis Acute kidney injury Plan: Put the patient on normal saline at 75 cc an hour Oxygen at 4 L/min nasal cannula Continue DuoNeb updrafts Continue IV Solu-Medrol Repeat electrolytes in the morning Increase mobility Overall, his advanced lung disease and patient has long-term limitation in exercise capacity related to COPD. Will continue to follow. - Labs CBC & Chem 7: 12/10/23 06:33 12/10/23 06:33 Labs: Abnormal Lab Results - Last 24 Hours (Table) 12/10/23 12/10/23 Range/Units 06:33 06:33 WBC 10.83 H (4.50-10.00) X 10*3/uL Hct 51.6 H (39.6-50.0) % MCV 97.9 H (80.0-97.0) FL MCHC 31.8 L (32.0-37.0) g/dL Carbon Dioxide 36.2 H (21.6-31.8) mmol/L BUN 55.4 H (9.0-27.0) mg/dL Est GFR (CKD-EPI) 48 L (>=60) BUN/Creatinine Ratio 36.93 H (12.00-20.00) Ratio Glucose 183 H (70-110) mg/dL Calcium 8.5 L (8.7-10.3) mg/dL Total Protein 4.6 L (6.2-8.2) g/dL Albumin 2.9 L (3.8-4.9) g/dL Assessment and Plan Assessment: Acute hypoxemic respiratory failure, secondary to acute COPD exacerbation, complicated by influenza A. Patient has completed 5-day course of Tamiflu. He was discharged yesterday and readmitted within less than 24 hours. Will continue treatment for COPD exacerbation. Chest x-ray still shows hyperinflation and flattened diaphragms consistent with COPD, no focal infiltrate or evidence of pneumonia, there is blunting of the left costophrenic angle and possible left pleural effusion, cardiac silhouette is stable, no significant pulmonary vascular congestion. Acute hypoxic respiratory failure and the patient is currently on oxygen at 4 L nasal Suspected lung cancer, right upper lobe, status post SBRT. The follow-up CAT scan of the chest shows no evidence of any pulmonary embolism. There was a 1.1 cm right upper lobe spiculated lesion. Advanced severe/stage IV COPD, with an FEV1 that is 27% of predicted. Chronic ongoing tobacco dependence Hyperlipidemia. History of hypertension. Coronary artery disease, history of myocardial infarction, status post PCI/stent placement. History of paroxysmal atrial fibrillation, anticoagulated on Eliquis Abdominal aortic aneurysm asymptomatic, measuring 5.1 cm Chronic kidney disease, stage III Mild CHF with ejection fraction of 45-50% along with apical septal hypokinesis Plan: Will continue the same treatment for now. Continue bronchodilators and ster oids. Clinically stable probably slightly improved compared to yesterday. Overall, his advanced lung disease and patient has long-term limitation in exercise capacity related to COPD. Will continue to follow.
[2023-12-10] MEDS: SODIUM CHLORIDE 0.9% 1,000 ML IV SCH (15:12)
--- NOTE | 2023-12-10 15:49 | P.PN ---
Subjective Progress Note Date: 12/10/23 Hospital Course: Patient is a very pleasant 73-year-old male with a past medical history of CAD, hypertension, hyperlipidemia, chronic kidney disease stage IIIb, lung cancer reported by patient however only documentation showing suspicious right upper lobe spiculated pulmonary nodule, and COPD with continued nicotine dependence. He recently underwent hospitalization from 12/02/2023 through 12/07/2023 for acute respiratory failure with hypoxia secondary to COPD exacerbation and influenza A accompanied by underlying lung cancer, NSTEMI, and new onset atrial fib rillation. During this 5-night hospitalization course, patient received treatment with IV steroids, antiretroviral with Tamiflu, and was placed on scheduled and as needed breathing treatments. Patient was discharged home on 4 L continuous O2, steroid taper, and a nebulizer machine with scheduled DuoNeb treatments. Patient was very adamant about discharge and was strongly advised on smoking cessation, however after returning home he reports going home and smoking cigarettes and instantly regretting that decision as he again became very short of breath and was unable to recover or catch his breath with rest so he returned to the emergency department. Upon arrival to the emergency department vital signs were obtained. Blood pressure 120/72, heart rate 83, respiratory rate 18, temp 98.1 F, and SpO2 of 83% on room air once patient was placed back on previous oxygen that he was discharged home with being 4 L O2 sats increasing to 93%. Labs were completed and reviewed. CBC showing mild leukocytosis with WBC count of 10.9. BMP did reveal hypokalemia with potassium of 8.3, hypercarbia with bicarb of 32, prerenal azotemia with BUN of 58, hyperglycemia with glucose of 320, calcium of 6.6 with corrected calcium of 8.0, hypomagnesemia with magnesium of 1.5, troponin of 0.023 and proBNP of 2920. Patient admitted under our services with consultation to pulmonology. Physical exam: Patient seen and fully evaluated at bedside this morning. His breathing has improved. Blood pressure running slightly low this morning at 94/59. Patient denies having any headache, lightheadedness, dizziness, chest pain, palpitations, or any other complaints at this time. Vital signs reviewed and stable. General: Nontoxic, no distress and appears stated age. Derm: Skin warm and dry, normal coloration for ethnicity. Head: Atraumatic, normocephalic and symmetric. Eyes: EOMs intact, no lid lag, and anicteric sclera Mouth: no lip lesions, mucus membranes moist Cardiovascular: regular rate and rhythm with normal S1S2, no murmur, positive posterior tibial pulses bilaterally, and cap refill < 2 seconds. Lungs: Respirations even, regular, and unlabored on supplemental oxygen. Lungs diminished. No rhonchi, no rales, no wheezing, and no accessory muscle usage. Abdominal: soft, nontender to palpation, no guarding, no appreciable organomegaly Ext: ROM intact. No gross muscle atrophy, no edema, no contractures Neuro: Speech clear, face symmetrical and CN II-XII grossly intact with no noted focal neuro deficits Psych: Alert and oriented to person, place, time, and situation. Appropriate and pleasant affect. Assessment and plan of care: Acute respiratory failure with hypoxia status post recent hospitalization for NSTEMI, COPD exacerbation and influenza A requiring discharged home on continuous home oxygen Acute kidney injury on chronic kidney disease stage IIIb Paroxysmal atrial fibrillation Coronary artery disease Hypertension Hyperlipidemia Continued nicotine dependence, recommend smoking cessation. Suspected lung cancer, lung cancer reported by patient however only documentation showing suspicious right upper lobe spiculated pulmonary nodule -Pulmonology following secondary to COPD exacerbation with advanced COPD with reported FEV1 of 27%, discussed plan of care with Dr. Weston recommending continued current treatment with the addition of IV fluid hydration for 24 hours then possible discharge. -Continue IV Solu-Medrol 60 mg IVP every 6 hours and current plan of care. -Oxygenation to be administered and titrated as needed to maintain SPO2 equal to or greater than 92% -Telemetry monitoring. -Monitor pulse-oximetry -Patient completed 5-day course of Tamiflu during previous hospitalization on 12/04/2023 -Duonebs scheduled 4 times daily and as needed for SOB and/or wheezing, and Symbicort 160-4.5 mcg inhaler 2 puffs twice daily. -Continue daily medication regimen with Eliquis 5 mg twice daily, aspirin 81 mg daily, atorvastatin 40 mg daily, lisinopril/hydrochlorothiazide 10/12.5 mg tablet daily, and metoprolol 50 mg twice daily. -Recommend smoking cessation, patient declining nicotine patch. -Lisinoprilhydrochlorothiazide held secondary to DEDRA -Continue IV fluid hydration with 0.9% normal saline at 75 cc/h. Electrolyte abnormalities with hypomagnesemia and hypokalemia, resolved. Data and imaging reviewed: -Vital signs reviewed. Blood pressure 94/59, heart rate 60, respiratory rate 16, temp 97.6 F, and SpO2 of 95% on 4 L. -Morning labs reviewed and stable. CBC showing leukocytosis with WBC count of 10.83 otherwise no significant abnormalities. BMP showing persistent hyp ercarbia with bicarb of 36.2 and acute kidney injury with BUN of 55.4, creatinine 1.5, and GFR 48. (Creatinine was 1.04 on 12/07/2023). CODE STATUS: DNR/DNI DVT prophylaxis: Eliquis Anticipated discharge date: Likely tomorrow morning Anticipated discharge place: Home Patient was seen independently by Nurse Pracitioner. This document was prepared using [employer] dictation software. Please allow for errors in director of audiology, while rare they do occur. [facility] [employer] MANAGEMENT SPECIALIST rendered care for this patient independently, reviewed the findings and plan as documented in the note above. I did not physically speak with or examine the patient on this date. Objective - Vital Signs Vital signs: Vital Signs Temp 97.6 F 12/10/23 07:00 Pulse 68 12/10/23 08:15 Resp 16 12/10/23 07:00 BP 94/59 12/10/23 07:00 Pulse Ox 94 L 12/10/23 08:05 FiO2 Intake & Output 12/09/23 12/10/23 12/10/23 18:59 06:59 18:59 Intake Total 340 400 Balance 340 400 Intake: Oral 340 400 Other: Voiding Method Toilet Toilet # Voids 1 2 - Labs CBC & Chem 7: 12/10/23 06:33 12/10/23 06:33
[2023-12-11 09:43] LABS: Basophils % (A) 0 %; Eosinophils % (A) 0 %; HCT 52.6 % (39.0-53.0); HGB 16.7 gm/dL (13.0-17.5); Hypochromasia Moderate; Lymphocytes # (A) 0.2 k/uL (1.0-4.8); Lymphocytes % (A) 2 %; MCH 32.3 pg (25.0-35.0); MCHC 31.7 g/dL (31.0-37.0); MCV 101.9 fL (80.0-100.0); Macrocytosis Slight; Monocytes # (A) 0.2 k/uL (0-1.0); Monocytes % (A) 2 %; Neutrophils % (A) 95 %; Platelet Count 218 k/uL (150-450); RBC 5.16 m/uL (4.30-5.90); RDW 13.1 % (11.5-15.5); WBC 9.5 k/uL (3.8-10.6)
[2023-12-11 12:07] LABS: African American GFR (CKD) 64 (>60 ml/min/1.73 sqM); Anion Gap 4 mmol/L; Blood Urea Nitrogen 65 mg/dL (9-20); Calcium 7.6 mg/dL (8.4-10.2); Carbon Dioxide 35 mmol/L (22-30); Chloride 98 mmol/L (98-107); Glucose 287 mg/dL (74-99); Non-African American GFR(CKD) 55 (>60 ml/min/1.73 sqM); Potassium 4.4 mmol/L (3.5-5.1); Sodium 137 mmol/L (137-145)
--- NOTE | 2023-12-11 12:55 | P.PN ---
Subjective Progress Note Date: 12/11/23 I am seeing this patient in consultation today December 08, 2023, patient was just discharged home yesterday for acute COPD exacerbation complicated by influenza A infection. I believe he has completed a course of Tamiflu. Patient is a 73-year-old white male with past medical history significant for severe COPD with an FEV1 27% of predicted, suspicious right upper lobe pulmonary nodule status post SBRT, chronic A-fib, coronary artery disease with previous PCI/stenting, chronic kidney disease, and chronic ongoing tobacco dependence. He sees Dr. Monteiro in the office for his pulmonary needs. As stated above, patient was just discharged yesterday on December 07 after a hospitalization for acute COPD exacerbation complicated by influenza A infection. He has completed course of Tamiflu. He was discharged on prednisone taper and home O2. Less than 24 hours later the patient was severely short of breath, especially with any exertion, and returned to the emergency room. He continues to have an intermittent cough with johansen-white sputum production. He denies any fevers, hemoptysis. Endorses some pleuritic like chest pain only on coughing. Chest x- ray on arrival did not show any focal consolidations or evidence of pneumonia. There is blunting of the left costophrenic angle, and possible small pleural effusion. Cardiac silhouette is stable, no significant pulmonary vascular congestion. CBC on arrival: WBC count of 10.9, hemoglobin 16.3, hematocrit 53.8, platelets 201. BMP on arrival: Sodium 137, potassium 3.3, chloride 103, serum bicarb 32, BUN 58, creatinine 1.04, glucose 320. NT proBNP 2920. Troponin 0.023. He is currently lying in bed, on a 4 L nasal cannula, in no acute distress. SpO2 is 95%. vital signs are stable. On 12/09/2023, the patient sitting up at edge of the bed. Being treated for an acute exacerbation and he remains essentially on the same treatment with the patient is on DuoNeb updrafts and IV Solu-Medrol. He is also Symbicort as maintenance. No new complaints. No signs of any CO2 narcosis. No other complaints otherwise. On 12/10/2023, the patient looks to be fatigued and tired and is mainly in bed without doing much of an activity. He did not sleep well and he feels tired and sleepy on today's evaluation. Remains on DuoNeb updrafts, Symbicort as maintenance and IV Solu-Medrol. No chest pain. No altered mentation. Labs are all stable with a white cell count of 10 hemoglobin of 16.4 and a platelet count of 241. Creatinine is at 1.5 with a BUN of 55 and a sodium levels of 141. The patient has sustained acute kidney injury. He will benefit from fluid hydration and the patient was placed on 75 cc of normal saline for now. The patient is seen today December 11, 2023 in follow-up on the regular medical floor. He is currently resting in bed. Awake and alert in no acute distress. Not feeling much better today compared to yesterday. He is maintaining O2 saturations in the 90s on 4 L/min per nasal cannula. White count 9.5. Hemoglobin 16.7. Platelets 218. Sodium 137. Potassium 4.4. Bicarb 35. BUN 65. Creatinine 1.27. Glucose 287. He remains on DuoNeb ventilations, Symbicort, Solu-Medrol. NicoDerm patch in place. Anticoagulated with Eliquis. Objective - Vital Signs Vital signs: Vital Signs Temp 97.6 F 12/11/23 07:40 Pulse 64 12/11/23 12:12 Resp 15 12/11/23 07:40 BP 144/80 12/11/23 07:40 Pulse Ox 93 L 12/11/23 07:40 FiO2 Intake & Output 12/10/23 12/11/23 12/11/23 18:59 06:59 18:59 Intake Total 358 180 Output Total 1075 Balance 358 -1075 180 Intake: Oral 358 180 Output: Urine 1075 Other: Voiding Method Toilet Urinal # Voids 4 - Exam GENERAL EXAM: Alert, 73-year-old male, on 4 L nasal cannula, fairly comfortable in no apparent distress. HEAD: Normocephalic. EYES: Normal reaction of pupils, equal size. NOSE: Clear with pink turbinates. THROAT: No erythema or exudates. NECK: No masses, no JVD. CHEST: No chest wall deformity. LUNGS: Equal air entry with bilateral end expiratory wheeze, diminished. CVS: S1 and S2 normal with no audible murmur, regular rhythm. ABDOMEN: No hepatosplenomegaly, normal bowel sounds, no guarding or rigidity. SPINE: No scoliosis or deformity SKIN: No rashes CENTRAL NERVOUS SYSTEM: No focal deficits, tone is normal in all 4 extremities. EXTREMITIES: There is no peripheral edema. No clubbing, no cyanosis. Peripheral pulses are intact. - Labs CBC & Chem 7: 12/11/23 09:18 12/11/23 11:25 Labs: Abnormal Lab Results - Last 24 Hours (Table) 12/11/23 12/11/23 Range/Units 09:18 11:25 MCV 101.9 H (80.0-100.0) fL Neutrophils # 9.0 H (1.3-7.7) k/uL Lymphocytes # 0.2 L (1.0-4.8) k/uL Carbon Dioxide 35 H (22-30) mmol/L BUN 65 H (9-20) mg/dL Creatinine 1.27 H (0.66-1.25) mg/dL Glucose 287 H (74-99) mg/dL Calcium 7.6 L (8.4-10.2) mg/dL Assessment and Plan Assessment: Acute hypoxemic respiratory failure, secondary to acute COPD exacerbation, complicated by influenza A. Patient has completed a 5-day course of Tamiflu. He was discharged and readmitted within 24 hours. Will continue treatment for COPD exacerbation. Chest x-ray still shows hyperinflation and flattened diaphragms consistent with COPD, no focal infiltrate or evidence of pneumonia, there is blunting of the left costophrenic angle and possible left pleural effusion, cardiac silhouette is stable, no significant pulmonary vascular congestion Acute on chronic hypoxic respiratory failure and the patient is currently on oxygen at 4 L nasal Suspected lung cancer, right upper lobe, status post SBRT. The follow-up CAT scan of the chest shows no evidence of any pulmonary embolism. There was a 1.1 cm right upper lobe spiculated lesion Advanced severe/stage IV COPD, with an FEV1 that is 27% of predicted Chronic and ongoing tobacco dependence Hyperlipidemia. Hypertension Coronary artery disease, history of myocardial infarction, status post PCI/stent placement History of paroxysmal atrial fibrillation, anticoagulated on Eliquis Abdominal aortic aneurysm asymptomatic, measuring 5.1 cm Chronic kidney disease, stage III Mild CHF with ejection fraction of 45-50% along with apical septal hypokinesis Acute kidney injury Plan: The patient was seen and evaluated Labs and medications reviewed Not quite back to his baseline Continue Symbicort, DuoNeb and elations Continue Solu-Medrol Anticoagulated with Eliquis Educated regarding the importance of smoking cessation NicoDerm patch in place May need subacute rehabilitation postdischarge We will continue to follow I have personally seen and examined the patient, performed the documentation and the assessment and plan as written. Number of minutes spent on the visit: 10.
--- NOTE | 2023-12-11 17:25 | P.PN ---
Subjective Progress Note Date: 12/11/23 Hospital Course: Patient is a very pleasant 73-year-old male with a past medical history of CAD, hypertension, hyperlipidemia, chronic kidney disease stage IIIb, lung cancer reported by patient however only documentation showing suspicious right upper lobe spiculated pulmonary nodule, and COPD with continued nicotine dependence. He recently underwent hospitalization from 12/02/2023 through 12/07/2023 for acute respiratory failure with hypoxia secondary to COPD exacerbation and influenza A accompanied by underlying lung cancer, NSTEMI, and new onset atrial fib rillation. During this 5-night hospitalization course, patient received treatment with IV steroids, antiretroviral with Tamiflu, and was placed on scheduled and as needed breathing treatments. Patient was discharged home on 4 L continuous O2, steroid taper, and a nebulizer machine with scheduled DuoNeb treatments. Patient was very adamant about discharge and was strongly advised on smoking cessation, however after returning home he reports going home and smoking cigarettes and instantly regretting that decision as he again became very short of breath and was unable to recover or catch his breath with rest so he returned to the emergency department. Upon arrival to the emergency department vital signs were obtained. Blood pressure 120/72, heart rate 83, respiratory rate 18, temp 98.1 F, and SpO2 of 83% on room air once patient was placed back on previous oxygen that he was discharged home with being 4 L O2 sats increasing to 93%. Labs were completed and reviewed. CBC showing mild leukocytosis with WBC count of 10.9. BMP did reveal hypokalemia with potassium of 8.3, hypercarbia with bicarb of 32, prerenal azotemia with BUN of 58, hyperglycemia with glucose of 320, calcium of 6.6 with corrected calcium of 8.0, hypomagnesemia with magnesium of 1.5, troponin of 0.023 and proBNP of 2920. Patient admitted under our services with consultation to pulmonology. Patient treated with scheduled and as needed nebulizer treatments, supplemental oxygen and IV steroids. Physical exam: Patient seen and fully evaluated at bedside. Patient states he does not feel ready to go home as of yet. He continues to have shortness of breath and o verall just does not feel well. Patient has 14 steps to enter his apartment as he lives on the second floor and elevator access is not available. Vital signs reviewed and stable. General: Nontoxic, no distress and appears stated age. Derm: Skin warm and dry, normal coloration for ethnicity. Head: Atraumatic, normocephalic and symmetric. Eyes: EOMs intact, no lid lag, and anicteric sclera Mouth: no lip lesions, mucus membranes moist Cardiovascular: regular rate and rhythm with normal S1S2, no murmur, positive posterior tibial pulses bilaterally, and cap refill < 2 seconds. Lungs: Respirations even, regular, and unlabored on supplemental oxygen. Lungs diminished. No rhonchi, no rales, no wheezing, and no accessory muscle usage. Abdominal: soft, nontender to palpation, no guarding, no appreciable organomegaly Ext: ROM intact. No gross muscle atrophy, no edema, no contractures Neuro: Speech clear, face symmetrical and CN II-XII grossly intact with no noted focal neuro deficits Psych: Alert and oriented to person, place, time, and situation. Appropriate and pleasant affect. Assessment and plan of care: Acute respiratory failure with hypoxia status post recent hospitalization for NSTEMI, COPD exacerbation and influenza A requiring discharged home on continuous home oxygen Paroxysmal atrial fibrillation Chronic kidney disease stage IIIb Coronary artery disease Hypertension Hyperlipidemia Continued nicotine dependence, recommend smoking cessation. Lung cancer -Pulmonology following secondary to COPD exacerbation with advanced COPD with reported FEV1 of 27%, reviewed documentation in chart stating patient not quite back to baseline. -Decreased IV steroids to Solu-Medrol 60 mg IVP every 12 hours and will plan to transition to oral steroids likely tomorrow -Oxygenation to be administered and titrated as needed to maintain SPO2 equal to or greater than 92% -Telemetry monitoring. -Monitor pulse-oximetry -Patient completed 5-day course of Tamiflu during previous hospitalization on 12/04/2023 -Duonebs scheduled 4 times daily and as needed for SOB and/or wheezing, and Symbicort 160-4.5 mcg inhaler 2 puffs twice daily. -Continue daily medication regimen with Eliquis 5 mg twice daily, aspirin 81 mg daily, atorvastatin 40 mg daily, lisinopril/hydrochlorothiazide 10/12.5 mg tablet daily, and metoprolol 50 mg twice daily. -Recommend smoking cessation, patient declining nicotine patch. Electrolyte abnormalities with hypomagnesemia and hypokalemia, resolved. Data and imaging reviewed: -Morning labs reviewed. CBC unremarkable. BMP showing persistent hypercarbia with bicarb of 35 and stable but elevated renal function with BUN of 65, creatinine 1.27, and GFR 55. Calcium 7.6 but corrected calcium is 8.5. Magnesium normal findings at 2.0. -Vital signs reviewed. Blood pressure 144/80, heart rate 66, respiratory rate 15, temp 97.6 F, and SpO2 of 93% on 4 L. CODE STATUS: DNR/DNI DVT prophylaxis: Eliquis Anticipated discharge date: Likely tomorrow morning, pending how well patient tolerates decreasing steroids. Anticipated discharge place: Home with home care, [facility]. Patient was seen independently by Nurse Pracitioner. This document was prepared using [employer] dictation software. Please allow for errors in engineer chief, while rare they do occur. I reviewed the documentation as provided by the SHAWN above, who is the original author of this note. I agree with the documented assessment and plan, with the following changes: none Objective - Vital Signs Vital signs: Vital Signs Temp 97.8 F 12/11/23 14:25 Pulse 76 12/11/23 15:58 Resp 16 12/11/23 14:25 BP 129/71 12/11/23 14:25 Pulse Ox 91 L 12/11/23 14:25 FiO2 Intake & Output 12/10/23 12/11/23 12/11/23 18:59 06:59 18:59 Intake Total 358 180 Output Total 1075 Balance 358 -1075 180 Intake: Oral 358 180 Output: Urine 1075 Other: Voiding Method Toilet Urinal # Voids 4 2 - Labs CBC & Chem 7: 12/11/23 09:18 12/11/23 11:25 Labs: Abnormal Lab Results - Last 24 Hours (Table) 12/11/23 12/11/23 Range/Units 09:18 11:25 MCV 101.9 H (80.0-100.0) fL Neutrophils # 9.0 H (1.3-7.7) k/uL Lymphocytes # 0.2 L (1.0-4.8) k/uL Carbon Dioxide 35 H (22-30) mmol/L BUN 65 H (9-20) mg/dL Creatinine 1.27 H (0.66-1.25) mg/dL Glucose 287 H (74-99) mg/dL Calcium 7.6 L (8.4-10.2) mg/dL
[2023-12-11] MEDS: methylPREDNISolone SOD SUCCI 125 MG/2 ML VIAL IV SCH (18:28)
--- NOTE | 2023-12-12 12:40 | P.PN ---
Subjective Progress Note Date: 12/12/23 I am seeing this patient in consultation today December 08, 2023, patient was just discharged home yesterday for acute COPD exacerbation complicated by influenza A infection. I believe he has completed a course of Tamiflu. Patient is a 73-year-old white male with past medical history significant for severe COPD with an FEV1 27% of predicted, suspicious right upper lobe pulmonary nodule status post SBRT, chronic A-fib, coronary artery disease with previous PCI/stenting, chronic kidney disease, and chronic ongoing tobacco dependence. He sees Dr. Monteiro in the office for his pulmonary needs. As stated above, patient was just discharged yesterday on December 07 after a hospitalization for acute COPD exacerbation complicated by influenza A infection. He has completed course of Tamiflu. He was discharged on prednisone taper and home O2. Less than 24 hours later the patient was severely short of breath, especially with any exertion, and returned to the emergency room. He continues to have an intermittent cough with johansen-white sputum production. He denies any fevers, hemoptysis. Endorses some pleuritic like chest pain only on coughing. Chest x- ray on arrival did not show any focal consolidations or evidence of pneumonia. There is blunting of the left costophrenic angle, and possible small pleural effusion. Cardiac silhouette is stable, no significant pulmonary vascular congestion. CBC on arrival: WBC count of 10.9, hemoglobin 16.3, hematocrit 53.8, platelets 201. BMP on arrival: Sodium 137, potassium 3.3, chloride 103, serum bicarb 32, BUN 58, creatinine 1.04, glucose 320. NT proBNP 2920. Troponin 0.023. He is currently lying in bed, on a 4 L nasal cannula, in no acute distress. SpO2 is 95%. vital signs are stable. On 12/09/2023, the patient sitting up at edge of the bed. Being treated for an acute exacerbation and he remains essentially on the same treatment with the patient is on DuoNeb updrafts and IV Solu-Medrol. He is also Symbicort as maintenance. No new complaints. No signs of any CO2 narcosis. No other complaints otherwise. On 12/10/2023, the patient looks to be fatigued and tired and is mainly in bed without doing much of an activity. He did not sleep well and he feels tired and sleepy on today's evaluation. Remains on DuoNeb updrafts, Symbicort as maintenance and IV Solu-Medrol. No chest pain. No altered mentation. Labs are all stable with a white cell count of 10 hemoglobin of 16.4 and a platelet count of 241. Creatinine is at 1.5 with a BUN of 55 and a sodium levels of 141. The patient has sustained acute kidney injury. He will benefit from fluid hydration and the patient was placed on 75 cc of normal saline for now. The patient is seen today December 11, 2023 in follow-up on the regular medical floor. He is currently resting in bed. Awake and alert in no acute distress. Not feeling much better today compared to yesterday. He is maintaining O2 saturations in the 90s on 4 L/min per nasal cannula. White count 9.5. Hemoglobin 16.7. Platelets 218. Sodium 137. Potassium 4.4. Bicarb 35. BUN 65. Creatinine 1.27. Glucose 287. He remains on DuoNeb ventilations, Symbicort, Solu-Medrol. NicoDerm patch in place. Anticoagulated with Eliquis. The patient is seen today December 12, 2023 in follow-up on the regular medical floor. He is currently awake and alert in no acute distress. Resting in bed. Denies any worsening shortness of breath, cough or congestion. Maintaining O2 saturations in the 90s on 4 L/min per nasal cannula. He remains on DuoNeb ventilations, Symbicort, Solu-Medrol. NicoDerm patch in place. Anticoagulated with Eliquis. Objective - Vital Signs Vital signs: Vital Signs Temp 97.9 F 12/12/23 08:00 Pulse 72 12/12/23 12:30 Resp 18 12/12/23 08:00 BP 131/75 12/12/23 08:00 Pulse Ox 94 L 12/12/23 08:00 FiO2 Intake & Output 12/11/23 12/12/23 12/12/23 18:59 06:59 18:59 Intake Total 416 118 Output Total 450 300 Balance 416 -450 -182 Intake: Oral 416 118 Output: Urine 450 300 Other: Voiding Method Urinal Urinal Urinal # Voids 1 - Exam GENERAL EXAM: Alert, 73-year-old male, on 4 L nasal cannula, resting in bed, comfortable in no apparent distress. HEAD: Normocephalic. EYES: Normal reaction of pupils, equal size. NOSE: Clear with pink turbinates. THROAT: No erythema or exudates. NECK: No masses, no JVD. CHEST: No chest wall deformity. LUNGS: Equal air entry with bilateral end expiratory wheeze, diminished. CVS: S1 and S2 normal with no audible murmur, regular rhythm. ABDOMEN: No hepatosplenomegaly, normal bowel sounds, no guarding or rigidity. SPINE: No scoliosis or deformity SKIN: No rashes CENTRAL NERVOUS SYSTEM: No focal deficits, tone is normal in all 4 extremities. EXTREMITIES: There is no peripheral edema. No clubbing, no cyanosis. Peripheral pulses are intact. - Labs CBC & Chem 7: 12/11/23 09:18 12/11/23 11:25 Assessment and Plan Assessment: Acute hypoxemic respiratory failure, secondary to acute COPD exacerbation, complicated by influenza A. Patient has completed a 5-day course of Tamiflu. He was discharged and readmitted within 24 hours. Will continue treatment for COPD exacerbation. Chest x-ray still shows hyperinflation and flattened diaphragms consistent with COPD, no focal infiltrate or evidence of pneumonia, there is blunting of the left costophrenic angle and possible left pleural effusion, cardiac silhouette is stable, no significant pulmonary vascular congestion Acute on chronic hypoxic respiratory failure and the patient is currently on oxygen at 4 L nasal Suspected lung cancer, right upper lobe, status post SBRT. The follow-up CAT scan of the chest shows no evidence of any pulmonary embolism. There was a 1.1 cm right upper lobe spiculated lesion Advanced severe/stage IV COPD, with an FEV1 that is 27% of predicted Chronic and ongoing tobacco dependence Hyperlipidemia. Hypertension Coronary artery disease, history of myocardial infarction, status post PCI/stent placement History of paroxysmal atrial fibrillation, anticoagulated on Eliquis Abdominal aortic aneurysm asymptomatic, measuring 5.1 cm Chronic kidney disease, stage III Mild CHF with ejection fraction of 45-50% along with apical septal hypokinesis Acute kidney injury Plan: The patient was seen and evaluated Medications reviewed Cleared for discharge from the pulmonary standpoint Continue his home pulmonary medications, oxygen Complete a prednisone taper Anticoagulated with Eliquis Again educated regarding the importance of smoking cessation NicoDerm patch in place Overall prognosis remains guarded as the patient continues to smoke Plan is to return home with his brother I have personally seen and examined the patient, performed the documentation and the assessment and plan as written. Number of minutes spent on the visit: 10.
--- NOTE | 2023-12-12 14:52 | P.PN ---
Subjective Progress Note Date: 12/12/23 Hospital Course: Patient is a very pleasant 73-year-old male with a past medical history of CAD, hypertension, hyperlipidemia, chronic kidney disease stage IIIb, lung cancer reported by patient however only documentation showing suspicious right upper lobe spiculated pulmonary nodule, and COPD with continued nicotine dependence. He recently underwent hospitalization from 12/02/2023 through 12/07/2023 for acute respiratory failure with hypoxia secondary to COPD exacerbation and influenza A accompanied by underlying lung cancer, NSTEMI, and new onset atrial fib rillation. During this 5-night hospitalization course, patient received treatment with IV steroids, antiretroviral with Tamiflu, and was placed on scheduled and as needed breathing treatments. Patient was discharged home on 4 L continuous O2, steroid taper, and a nebulizer machine with scheduled DuoNeb treatments. Patient was very adamant about discharge and was strongly advised on smoking cessation, however after returning home he reports going home and smoking cigarettes and instantly regretting that decision as he again became very short of breath and was unable to recover or catch his breath with rest so he returned to the emergency department. Upon arrival to the emergency department vital signs were obtained. Blood pressure 120/72, heart rate 83, respiratory rate 18, temp 98.1 F, and SpO2 of 83% on room air once patient was placed back on previous oxygen that he was discharged home with being 4 L O2 sats increasing to 93%. Labs were completed and reviewed. CBC showing mild leukocytosis with WBC count of 10.9. BMP did reveal hypokalemia with potassium of 8.3, hypercarbia with bicarb of 32, prerenal azotemia with BUN of 58, hyperglycemia with glucose of 320, calcium of 6.6 with corrected calcium of 8.0, hypomagnesemia with magnesium of 1.5, troponin of 0.023 and proBNP of 2920. Patient admitted under our services with consultation to pulmonology. Patient treated with scheduled and as needed nebulizer treatments, supplemental oxygen and IV steroids. Physical exam: Patient seen and fully evaluated at bedside. He appears to be doing well and is medically stable for discharge home on oxygen. Patient concerned on how he is going to get into his apartment on the second floor. Orders placed for consult to physical therapy to ambulate patient and take him on the stairs for further evaluation of patient's abilities to ensure a safe discharge plan. Vital signs reviewed and stable. General: Nontoxic, no distress and appears stated age. Derm: Skin warm and dry, normal coloration for ethnicity. Head: Atraumatic, normocephalic and symmetric. Eyes: EOMs intact, no lid lag, and anicteric sclera Mouth: no lip lesions, mucus membranes moist Cardiovascular: regular rate and rhythm with normal S1S2, no murmur, positive posterior tibial pulses bilaterally, and cap refill < 2 seconds. Lungs: Respirations even, regular, and unlabored on supplemental oxygen. Lungs diminished. No rhonchi, no rales, no wheezing, and no accessory muscle usage. Abdominal: soft, nontender to palpation, no guarding, no appreciable organomegaly Ext: ROM intact. No gross muscle atrophy, no edema, no contractures Neuro: Speech clear, face symmetrical and CN II-XII grossly intact with no noted focal neuro deficits Psych: Alert and oriented to person, place, time, and situation. Appropriate and pleasant affect. Assessment and plan of care: Acute respiratory failure with hypoxia status post recent hospitalization for NSTEMI, COPD exacerbation and influenza A requiring discharged home on continuous home oxygen Paroxysmal atrial fibrillation Chronic kidney disease stage IIIb Coronary artery disease Hypertension Hyperlipidemia Continued nicotine dependence, recommend smoking cessation. Lung cancer -Pulmonology following secondary to COPD exacerbation with advanced COPD with reported FEV1 of 27%, reviewed documentation in chart stating patient not quite back to baseline. -Decreased IV steroids to Solu-Medrol 60 mg daily and patient to resume oral prednisone tomorrow. -Oxygenation to be administered and titrated as needed to maintain SPO2 equal to or greater than 92% -Telemetry monitoring. -Monitor pulse-oximetry -Patient completed 5-day course of Tamiflu during previous hospitalization on 12/04/2023 -Duonebs scheduled 4 times daily and as needed for SOB and/or wheezing, and Symbicort 160-4.5 mcg inhaler 2 puffs twice daily. -Continue daily medication regimen with Eliquis 5 mg twice daily, aspirin 81 mg daily, atorvastatin 40 mg daily, lisinopril/hydrochlorothiazide 10/12.5 mg tablet daily, and metoprolol 50 mg twice daily. -Recommend smoking cessation, patient declining nicotine patch. Electrolyte abnormalities with hypomagnesemia and hypokalemia, resolved. Data and imaging reviewed: -Vital signs reviewed. Blood pressure 131/75, heart rate 65, respiratory rate 18, temp 97.9 F, and SpO2 of 94% on 4 L. CODE STATUS: DNR/DNI DVT prophylaxis: Eliquis Anticipated discharge date: Tomorrow morning, patient's brother to bring oxygen tanks to hospital for discharge. Anticipated discharge place: Home with home care, [facility]. Patient was seen independently by Nurse Pracitioner. This document was prepared using [employer] dictation software. Please allow for errors in pull tab dealer, while rare they do occur. Oc Vallejo NP rendered care for this patient independently, reviewed the findings and plan as documented in the note above. I did not physically speak with or examine the patient on this date. Objective - Vital Signs Vital signs: Vital Signs Temp 97.9 F 12/12/23 08:00 Pulse 65 12/12/23 08:00 Resp 18 12/12/23 08:00 BP 131/75 12/12/23 08:00 Pulse Ox 94 L 12/12/23 08:00 FiO2 Intake & Output 12/11/23 12/12/23 12/12/23 18:59 06:59 18:59 Intake Total 416 Output Total 450 300 Balance 416 -450 -300 Intake: Oral 416 Output: Urine 450 300 Other: Voiding Method Urinal Urinal # Voids 1 - Labs CBC & Chem 7: 12/11/23 09:18 12/11/23 11:25 Labs: Abnormal Lab Results - Last 24 Hours (Table) 12/11/23 12/11/23 Range/Units 09:18 11:25 MCV 101.9 H (80.0-100.0) fL Neutrophils # 9.0 H (1.3-7.7) k/uL Lymphocytes # 0.2 L (1.0-4.8) k/uL Carbon Dioxide 35 H (22-30) mmol/L BUN 65 H (9-20) mg/dL Creatinine 1.27 H (0.66-1.25) mg/dL Glucose 287 H (74-99) mg/dL Calcium 7.6 L (8.4-10.2) mg/dL
[2023-12-13 03:42] VITALS: RESP 18
[2023-12-13] MEDS: predniSONE 20 MG TAB PO SCH (08:24)
[2023-12-13 08:32] VITALS: BP 146/79; TEMP 98
[2023-12-13 08:33] VITALS: PULSE 72
--- NOTE | 2023-12-13 11:14 | P.DS ---
Providers Date of admission: 12/07/23 17:31 Expected date of discharge: 12/13/23 Attending physician: Batsheva Almendarez MD Consults: 12/07/23 17:29 Consult Physician Routine Consulting Provider: Mychal Monteiro Consult Reason/Comments: copd Do you want consulting provider notified?: Yes Primary care physician: [facility] Course: 73-year-old male with a past medical history of CAD, hypertension, hyperlipidemia, chronic kidney disease stage IIIb, lung cancer reported by patient however only documentation showing suspicious right upper lobe spiculated pulmonary nodule, and COPD with continued nicotine dependence. He recently underwent hospitalization from 12/02/2023 through 12/07/2023 for acute respiratory failure with hypoxia secondary to COPD exacerbation and influenza A accompanied by underlying lung cancer, NSTEMI, and new onset atrial fibrillation. During this 5-night hospitalization course, patient received treatment with IV steroids, antiretroviral with Tamiflu, and was placed on scheduled and as needed breathing treatments. Patient was discharged home on 4 L continuous O2, steroid taper, and a nebulizer machine with scheduled DuoNeb treatments. Patient was very adamant about discharge and was strongly advised on smoking cessation, however after returning home he reports going home and smoking cigarettes and instantly regretting that decision as he again became very short of breath and was unable to recover or catch his breath with rest so he returned to the emergency department. Upon arrival to the emergency department vital signs were obtained. Blood pressure 120/72, heart rate 83, respiratory rate 18, temp 98.1 F, and SpO2 of 83% on room air once patient was placed back on previous oxygen that he was discharged home with being 4 L O2 sats increasing to 93%. CBC showing WBC count of 10.9. BMP potassium of 8.3, bicarb of 32, BUN of 58, glucose of 320, calcium of 6.6 with corrected calcium of 8.0 Magnesium of 1.5 Troponin of 0.023 proBNP of 2920. Patient admitted under our services with consultation to pulmonology. Patient treated with scheduled and as needed nebulizer treatments, supplemental oxygen and IV steroids. 12/13 Patient was seen and examined. Brother at bedside. Oxygen at bedside. Nebulizer at bedside. Patient is worried about coming back to the hospital. Breathing at baseline. Plans for discharge home on Prednisone taper. Advised not to smoke with his oxygen. He has a pulse ox and CPAP at home. Vital signs reviewed and stable. General: Nontoxic, no distress and appears stated age. Derm: Skin warm and dry, normal coloration for ethnicity. Head: Atraumatic, normocephalic and symmetric. Eyes: EOMs intact, no lid lag, and anicteric sclera Cardiovascular: regular rate and rhythm with normal S1S2, no murmur Lungs: Respirations even, regular, and unlabored on supplemental oxygen. Lungs diminished. No rhonchi, no rales, no wheezing, and no accessory muscle usage. Ext: ROM intact. No gross muscle atrophy, no edema, no contractures Neuro: Speech clear, face symmetrical and no noted focal neuro deficits Psych: Alert and oriented to person, place, time, and situation. Appropriate and pleasant affect. Discharge Diagnosis: Acute respiratory failure with hypoxia status post recent hospitalization for NSTEMI, COPD exacerbation and influenza A requiring discharged home on continu ous home oxygen Paroxysmal atrial fibrillation Chronic kidney disease stage IIIb Coronary artery disease Hypertension Hyperlipidemia Continued nicotine dependence, recommend smoking cessation. Lung cancer Electrolyte abnormalities with hypomagnesemia and hypokalemia, resolved. This complex discharge took 35 minutes to complete. Patient Condition at Discharge: Stable Plan - Discharge Summary New Discharge Prescriptions: New Fluticasone Propionate [Fluticasone Propionate Hfa 220 MCG (Inhaler)] 1 puff INHALATION BID #12 gm Montelukast [Singulair] 10 mg PO HS #30 tab predniSONE See Taper PO DIRECTED #30 tab Continue Metoprolol Tartrate [Lopressor] 50 mg PO BID Tiotropium Br/Olodaterol HCl [Stiolto Respimat Inhal Jupiter] 2 puff INHALATION RT-DAILY Lisinopril-Hctz 10-12.5 mg [Zestoretic 10-12.5] 1 tab PO DAILY Apixaban [Eliquis] 5 mg PO BID 30 Days #60 tab Rosuvastatin [Crestor] 20 mg PO DAILY Aspirin EC [Ecotrin Low Dose] 81 mg PO DAILY Changed Ipratropium-Albuterol Nebulize [Duoneb 0.5 mg-3 mg/3 ml Soln] 3 ml INHALATION RT-QID PRN 30 Days #120 each PRN Reason: Shortness Of Breath Or Wheezing Discontinued predniSONE See Taper PO DIRECTED 12 Days #30 tab Discharge Medication List Metoprolol Tartrate [Lopressor] 50 mg PO BID 10/19/20 [History] Aspirin EC [Ecotrin Low Dose] 81 mg PO DAILY 11/30/23 [History] Lisinopril-Hctz 10-12.5 mg [Zestoretic 10-12.5] 1 tab PO DAILY 11/30/23 [History] Rosuvastatin [Crestor] 20 mg PO DAILY 11/30/23 [History] Tiotropium Br/Olodaterol HCl [Stiolto Respimat Inhal Jupiter] 2 puff INHALATION RT-DAILY 11/30/23 [History] Apixaban [Eliquis] 5 mg PO BID 30 Days #60 tab 12/06/23 [Rx] Fluticasone Propionate [Fluticasone Propionate Hfa 220 MCG (Inhaler)] 1 puff INHALATION BID #12 gm 12/13/23 [Rx] Ipratropium-Albuterol Nebulize [Duoneb 0.5 mg-3 mg/3 ml Soln] 3 ml INHALATION RT-QID PRN 30 Days #120 each 12/13/23 [Rx] Montelukast [Singulair] 10 mg PO HS #30 tab 12/13/23 [Rx] predniSONE See Taper PO DIRECTED #30 tab 12/13/23 [Rx] Follow up Appointment(s)/Referral(s): Mychal Monteiro DO [Doctor of Osteopathic Medicine] - 12/26/23 8:45 am [facility] [NON-STAFF] - 1 Week [facility] [Primary Care Provider] - 1-2 days Patient Instructions/Handouts: COPD (Chronic Obstructive Pulmonary Disease) (DC) Discharge Disposition: HOME WITH HOME HEALTH SERVICES
--- NOTE | 2023-12-13 11:35 | P.PN ---
Subjective Progress Note Date: 12/13/23 I am seeing this patient in consultation today December 08, 2023, patient was just discharged home yesterday for acute COPD exacerbation complicated by influenza A infection. I believe he has completed a course of Tamiflu. Patient is a 73-year-old white male with past medical history significant for severe COPD with an FEV1 27% of predicted, suspicious right upper lobe pulmonary nodule status post SBRT, chronic A-fib, coronary artery disease with previous PCI/stenting, chronic kidney disease, and chronic ongoing tobacco dependence. He sees Dr. Monteiro in the office for his pulmonary needs. As stated above, patient was just discharged yesterday on December 07 after a hospitalization for acute COPD exacerbation complicated by influenza A infection. He has completed course of Tamiflu. He was discharged on prednisone taper and home O2. Less than 24 hours later the patient was severely short of breath, especially with any exertion, and returned to the emergency room. He continues to have an intermittent cough with johansen-white sputum production. He denies any fevers, hemoptysis. Endorses some pleuritic like chest pain only on coughing. Chest x- ray on arrival did not show any focal consolidations or evidence of pneumonia. There is blunting of the left costophrenic angle, and possible small pleural effusion. Cardiac silhouette is stable, no significant pulmonary vascular congestion. CBC on arrival: WBC count of 10.9, hemoglobin 16.3, hematocrit 53.8, platelets 201. BMP on arrival: Sodium 137, potassium 3.3, chloride 103, serum bicarb 32, BUN 58, creatinine 1.04, glucose 320. NT proBNP 2920. Troponin 0.023. He is currently lying in bed, on a 4 L nasal cannula, in no acute distress. SpO2 is 95%. vital signs are stable. On 12/09/2023, the patient sitting up at edge of the bed. Being treated for an acute exacerbation and he remains essentially on the same treatment with the patient is on DuoNeb updrafts and IV Solu-Medrol. He is also Symbicort as maintenance. No new complaints. No signs of any CO2 narcosis. No other complaints otherwise. On 12/10/2023, the patient looks to be fatigued and tired and is mainly in bed without doing much of an activity. He did not sleep well and he feels tired and sleepy on today's evaluation. Remains on DuoNeb updrafts, Symbicort as maintenance and IV Solu-Medrol. No chest pain. No altered mentation. Labs are all stable with a white cell count of 10 hemoglobin of 16.4 and a platelet count of 241. Creatinine is at 1.5 with a BUN of 55 and a sodium levels of 141. The patient has sustained acute kidney injury. He will benefit from fluid hydration and the patient was placed on 75 cc of normal saline for now. The patient is seen today December 11, 2023 in follow-up on the regular medical floor. He is currently resting in bed. Awake and alert in no acute distress. Not feeling much better today compared to yesterday. He is maintaining O2 saturations in the 90s on 4 L/min per nasal cannula. White count 9.5. Hemoglobin 16.7. Platelets 218. Sodium 137. Potassium 4.4. Bicarb 35. BUN 65. Creatinine 1.27. Glucose 287. He remains on DuoNeb ventilations, Symbicort, Solu-Medrol. NicoDerm patch in place. Anticoagulated with Eliquis. The patient is seen today December 12, 2023 in follow-up on the regular medical floor. He is currently awake and alert in no acute distress. Resting in bed. Denies any worsening shortness of breath, cough or congestion. Maintaining O2 saturations in the 90s on 4 L/min per nasal cannula. He remains on DuoNeb ventilations, Symbicort, Solu-Medrol. NicoDerm patch in place. Anticoagulated with Eliquis. The patient is seen today December 13, 2023 in follow-up on the regular medical floor. He is resting comfortably in bed. Awake and alert in no acute distress. Maintaining O2 saturations in the 90s on 4 L/min per nasal cannula. He is afebrile. Hemodynamically stable. He is continued on DuoNeb ventilations, Symbicort, prednisone taper. Anticoagulated with Eliquis. NicoDerm patch in place. Objective - Vital Signs Vital signs: Vital Signs Temp 98.0 F 12/13/23 08:00 Pulse 72 12/13/23 08:39 Resp 18 12/13/23 08:00 BP 146/79 12/13/23 08:00 Pulse Ox 92 L 12/13/23 08:30 FiO2 Intake & Output 12/12/23 12/13/23 12/13/23 18:59 06:59 18:59 Intake Total 118 354 240 Output Total 300 625 300 Balance -182 -271 -60 Intake: Oral 118 354 240 Output: Urine 300 625 300 Other: Voiding Method Urinal Urinal # Voids 6 3 # Bowel Movements 1 - Exam GENERAL EXAM: Alert, 73-year-old male, on 4 L nasal cannula, in no apparent distress. HEAD: Normocephalic. EYES: Normal reaction of pupils, equal size. NOSE: Clear with pink turbinates. THROAT: No erythema or exudates. NECK: No masses, no JVD. CHEST: No chest wall deformity. LUNGS: Equal air entry with bilateral end expiratory wheeze, diminished. CVS: S1 and S2 normal with no audible murmur, regular rhythm. ABDOMEN: No hepatosplenomegaly, normal bowel sounds, no guarding or rigidity. SPINE: No scoliosis or deformity SKIN: No rashes CENTRAL NERVOUS SYSTEM: No focal deficits, tone is normal in all 4 extremities. EXTREMITIES: There is no peripheral edema. No clubbing, no cyanosis. Peripheral pulses are intact. - Labs CBC & Chem 7: 12/11/23 09:18 12/11/23 11:25 Assessment and Plan Assessment: Acute hypoxemic respiratory failure, secondary to acute COPD exacerbation, complicated by influenza A. Patient has completed a 5-day course of Tamiflu. He was discharged and readmitted within 24 hours. Will continue treatment for COPD exacerbation. Chest x-ray still shows hyperinflation and flattened diaphragms consistent with COPD, no focal infiltrate or evidence of pneumonia, there is blunting of the left costophrenic angle and possible left pleural effusion, cardiac silhouette is stable, no significant pulmonary vascular congestion Acute on chronic hypoxic respiratory failure and the patient is currently on oxygen at 4 L nasal Suspected lung cancer, right upper lobe, status post SBRT. The follow-up CAT scan of the chest shows no evidence of any pulmonary embolism. There was a 1.1 cm right upper lobe spiculated lesion Advanced severe/stage IV COPD, with an FEV1 that is 27% of predicted Chronic and ongoing tobacco dependence Hyperlipidemia. Hypertension Coronary artery disease, history of myocardial infarction, status post PCI/stent placement History of paroxysmal atrial fibrillation, anticoagulated on Eliquis Abdominal aortic aneurysm asymptomatic, measuring 5.1 cm Chronic kidney disease, stage III Mild CHF with ejection fraction of 45-50% along with apical septal hypokinesis Acute kidney injury Plan: The patient was seen and evaluated Medications reviewed Cleared for discharge from the pulmonary standpoint Continue his home pulmonary medications, oxygen Complete a prednisone taper Overall prognosis remains guarded as the patient continues to smoke He is a DNR/DNI CODE STATUS Plan is to return home with his brother Follow-up in our office in 1 week I have personally seen and examined the patient, performed the documentation and the assessment and plan as written. Number of minutes spent on the visit: 10.
== END 2023-12-13 12:31 | disposition home health service (06) | DRG 189 ==
LOC: EC 14:34 → 6NMEDSUR 17:30 → OBSVTOIN 17:31 → 6NMEDSUR 20:32
PROVIDERS: ADMIT Internal Medicine; ATTEND Internal Medicine
DX: J96.21 Acute and chronic respiratory failure with hypoxia (principal); I21.4 Non-ST elevation (NSTEMI) myocardial infarction; N17.9 Acute kidney failure, unspecified; J45.901 Unspecified asthma with (acute) exacerbation; J44.1 Chronic obstructive pulmonary disease with (acute) exacerbation; C34.11 Malignant neoplasm of upper lobe, right bronchus or lung; I13.0 Hypertensive heart and chronic kidney disease with heart failure and stage 1 through stage 4 chronic kidney disease, or unspecified chronic kidney disease; I50.20 Unspecified systolic (congestive) heart failure; N18.32 Chronic kidney disease, stage 3b; F17.210 Nicotine dependence, cigarettes, uncomplicated; R91.1 Solitary pulmonary nodule; E78.5 Hyperlipidemia, unspecified; E83.42 Hypomagnesemia; E83.51 Hypocalcemia; E87.6 Hypokalemia; F41.9 Anxiety disorder, unspecified; R73.9 Hyperglycemia, unspecified; I25.10 Atherosclerotic heart disease of native coronary artery without angina pectoris; I48.0 Paroxysmal atrial fibrillation; I71.40 Abdominal aortic aneurysm, without rupture, unspecified; Z99.81 Dependence on supplemental oxygen; J10.1 Influenza due to other identified influenza virus with other respiratory manifestations; Z79.01 Long term (current) use of anticoagulants; Z79.82 Long term (current) use of aspirin; Z79.899 Other long term (current) drug therapy; Z86.73 Personal history of transient ischemic attack (TIA), and cerebral infarction without residual deficits; Z95.5 Presence of coronary angioplasty implant and graft; Z28.311 Partially vaccinated for COVID-19; Z28.21 Immunization not carried out because of patient refusal; Z71.6 Tobacco abuse counseling
CPT/HCPCS: 36415; 71045; 80048; 80053; 83735; 83880; 84484; 85025; 85027; 85610; 85730; 93005; 94640; 94760; 96361; 96374; 96376; 99285

== ENCOUNTER → 2024-04-11 | Outpatient (CLI) | payer OTHER ==
[2024-04-11 13:23] LABS: African American GFR (CKD) 46 (>60 ml/min/1.73 sqM); Blood Urea Nitrogen 30 mg/dL (9-20); Non-African American GFR(CKD) 40 (>60 ml/min/1.73 sqM)
--- NOTE | 2024-04-11 15:07 | CT ---
EXAMINATION TYPE: CT chest w con CT DLP: 412 mGycm, Automated exposure control for dose reduction was used. DATE OF EXAM: 04/11/2024 1:41 PM COMPARISON: CT chest 12/02/2023, 10/03/2023, 05/23/2023, PET CT 02/11/2023 CLINICAL INDICATION:Male, 73 years old with history of C34.11 MALIGNANT NEOPLASM OF UPPER LOBE, RIGHT BRO; PHH, f/u lung cancer TECHNIQUE: Multiple axial images were obtained through the chest following the administration of 80 c c of Isovue 300. . Coronal and sagittal reformats reviewed. FINDINGS: LUNGS/ PLEURA: No pleural effusion or pneumothorax. Left lower lobe reticular consolidation. Addition al reticular opacities within the dependent right lower lobe. Stable right upper lobe 1.1 x 0.7 cm sp iculated nodule (series 4, image 14). Previously measured 1.0 x 0.9 cm. No new suspicious pulmonary n odules or masses. Moderate centrilobular emphysematous changes. AIRWAY: Trace secretions identified within the distal trachea extending into the left mainstem bronch us.. HEART: Size within normal limits. No pericardial effusion. Moderate coronary arterial calcifications. MEDIASTINUM: No pathologically enlarged lymphadenopathy. Calcified mediastinal lymph nodes redemonstr ated. VASCULATURE: No thoracic aortic aneurysm. Moderate atelectatic calcification of the aorta and its bra nches. There is moderate amount of mural plaque is identified within the abdominal aorta. Stable size of partially visualized infrarenal abdominal aortic aneurysm measuring up to 3.5 cm. MUSCULOSKELETAL: No acute osseous abnormalities. Multilevel degenerative changes of the visualized th oracic lumbar spine. SOFT TISSUES/LYMPH NODES: Unremarkable. LOWER NECK: No significant findings. UPPER ABDOMEN: Few subcentimeter hypodensities within the liver redemonstrated and to spike character ize. Atrophic left kidney redemonstrated with a exophytic 2.8 cm cyst. There is decreased enhancement of the left kidney compared to the right. There is poor enhancement of the visualized left renal art eries. IMPRESSION: 1. Stable spiculated nodule within the right upper lobe measuring up to 1.0 cm. 2. New bilateral lower lobe reticular consolidative opacities with left greater than right. Additiona lly there are trace secretions within the distal trachea extending into the left mainstem bronchus. F indings may represent pneumonia from possible aspiration versus reactive posttreatment changes. 3. Redemonstration of partially visualized infrarenal abdominal aortic aneurysm. There is correspondi ng poor enhancement again of the atrophic left kidney. Additionally there is poor contrast enhancemen t of the left renal arteries suggesting high-grade stenosis and poor vascularization of the left kidn ey.
== END | disposition home or self-care (01) ==
LOC: RADCTMAIN 12:44
PROVIDERS: ATTEND Radiology Radiation Oncology
DX: I71.43 Infrarenal abdominal aortic aneurysm, without rupture (principal); C34.01 Malignant neoplasm of right main bronchus; C34.11 Malignant neoplasm of upper lobe, right bronchus or lung; N26.1 Atrophy of kidney (terminal)
CPT/HCPCS: 82565; 84520; 71260; 36415; Q9967

== ENCOUNTER → 2024-10-03 | Outpatient (CLI) | payer OTHER ==
--- NOTE | 2024-10-03 12:13 | CT ---
EXAMINATION TYPE: CT chest wo con DATE OF EXAM: 10/03/2024 COMPARISON: 04/11/2024 CLINICAL INDICATION: Male, 74 years old with history of C34.11, F17.210 JESSICA, NICOTINE; PHH, lung CA TECHNIQUE: CT scan of the thorax is performed without IV contrast. CT DLP: 428.[address] CTDI: mGy Automated exposure control for dose reduction was used. FINDINGS: The spiculated nodule in the right upper lobe appears slightly more rounded and slightly more masslik e than on the prior study. Previously measured 11 mm x 7.2 mm and now measures approximately 11 mm x 8.13 mm. Growing neoplasm should be considered and a PET scan might be useful for further evaluation. There is moderate chronic interstitial changes in the left lung base. There is been development of a 18 mm pleural-based density which could represent pleural scarring around atelectasis but neoplasm is not excluded. PET scan would be useful for further evaluation. There is no pleural effusion or pneumothorax. There is 4 cm dilatation of the ascending thoracic aorta. There is mild cardiomegaly. There is no mediastinal, hilar or axillary adenopathy. Limited scanning through the upper abdomen reveals partial evaluation of abdominal aortic aneurysm. C T of the abdomen were used for further evaluation. The left kidney is markedly atrophic. The osseous structures are intact. IMPRESSION: 1. Findings suspicious for growing nodule in the right lung apex and masslike pleural-based density i n the left lower lobe. PET scan would be useful for further evaluation. 2. Chronic interstitial changes in the left lung base. 3. 4 cm dilatation of the ascending thoracic aorta. 4. Incomplete evaluation of abdominal aortic aneurysm and CT abdomen and pelvis is recommended for fu rther evaluation of the abdominal aorta. 5. Markedly atrophic left kidney. [facility], , 10/03/2024 12:10 PM
== END | disposition home or self-care (01) ==
LOC: RADCTMAIN 11:36
PROVIDERS: ATTEND Radiology Radiation Oncology
DX: C34.11 Malignant neoplasm of upper lobe, right bronchus or lung (principal); F17.210 Nicotine dependence, cigarettes, uncomplicated; N26.1 Atrophy of kidney (terminal); I70.0 Atherosclerosis of aorta
CPT/HCPCS: 71250

== ENCOUNTER → 2025-02-06 | Outpatient (CLI) | payer OTHER ==
--- NOTE | 2025-02-06 15:03 | CT ---
EXAMINATION TYPE: CT chest wo con DATE OF EXAM: 02/06/2025 COMPARISON: Prior chest CT October 03, 2024 and older studies CLINICAL INDICATION: Male, 74 years old with history of V, PRIOR ABDOMEN CT, LUNG CA TECHNIQUE: CT scan of the thorax is performed without IV contrast. CT DLP: 578 mGycm. Automated Exposure Control for Dose Reduction was Utilized. FINDINGS: LUNGS: Mild to moderate underlying emphysematous change is redemonstrated. There is positive treatment respo nse with residual 5 mm spiculated nodule axial image 12 in the central right upper lobe decreased fro m roughly 10 mm on prior. There is peripheral reticulation in the lateral left lower lung with slight tiny nodularity redemonstrated. Moderate left basilar scarring and/or atelectasis is more prominent versus most recent prior. No pleural effusion or pneumothorax. No enlarging masses. HEART: Heart size upper limits of Normal. Moderate to severe three-vessel coronary artery calcificati on redemonstrated. Tiny pericardial effusion redemonstrated MEDIASTINUM: Lack of IV contrast is noted to limit evaluation for mediastinal and especially hilar ad enopathy. There are no definitive new greater than 1 cm mediastinal lymph nodes. No cardiomegaly or pericardial effusion is seen. OTHER: Liver remains heterogeneously hypodense consistent with diffuse fatty infiltrative hepatocellu lar disease. Asymmetric diminished size and cortical thinning left kidney is redemonstrated. Bridging osteophytes in the thoracic spine are redemonstrated. IMPRESSION: Partial positive treatment response to the right apical pulmonary nodule as detailed jay forbes [facility], , 02/06/2025 3:01 PM
== END | disposition home or self-care (01) ==
LOC: RADCTMAIN 10:58
PROVIDERS: ATTEND Radiology Radiation Oncology
DX: C34.11 Malignant neoplasm of upper lobe, right bronchus or lung (principal); F17.210 Nicotine dependence, cigarettes, uncomplicated; R91.1 Solitary pulmonary nodule; I31.39 Other pericardial effusion (noninflammatory); K76.0 Fatty (change of) liver, not elsewhere classified; N28.89 Other specified disorders of kidney and ureter; M25.78 Osteophyte, vertebrae
CPT/HCPCS: 71250